=== PATIENT | female | born 1980 | race Caucasian/White ===

== ENCOUNTER 2017-05-13 11:52 | Emergency (ER) | payer BC, SELFPAY ==
[2017-05-13 14:39] VITALS: BP 138/82; PULSE 64; RESP 18; TEMP 36.9; O2SAT 100; BMI 43.0
--- NOTE | 2017-05-13 15:09 | HMH.EDUTC ---
[place] Disposition Clinical Impression: Lip swelling Contact dermatitis Qualifiers: Contact dermatitis type: allergic Contact dermatitis trigger: unspecified trigger Qualified Code(s): L23.9 - Allergic contact dermatitis, unspecified cause Disposition: Home, Self-Care Condition on Discharge: Good Instructions: DI for Contact Dermatitis, DI for General Allergic Reactions Additional Instructions: Discussed possible differentials Sounds concerning for allergic reaction and something related to her bed. pt can't think of anything benadry ok as needed Start steroid. Monitor and BE SURE to follow up for new, worsening or persistent symptoms but also if as you taper, symptoms return or worsen, then try to seek treatment before stopping steroid Cool compress on lip Prescriptions: methylPREDNISolone [Medrol] 4 mg PO DIRECTED #1 tab.ds.pk Referrals: Non User,Provider [Primary Care Provider] - (we have provided you with a list of providers accepting patients. I would encourage you find him a new primary care provider and make an appt PAOLA as it can take weeks to get a new patient appointment. In the meantime, follow up in the clinic or ER for new, worsening or persistent symptoms.) Time of Disposition: 15:31 Medical Decision Making Vital Signs: 05/13/17 14:39 05/13/17 15:32 Temperature 98.4 F 98.1 F Temperature Source Temporal Artery Scan Pulse Rate 71 Pulse Rate [Right Radial] 64 Respiratory Rate 18 20 Blood Pressure 127/80 Blood Pressure [Right Arm] 138/82 Blood Pressure Mean [Right Arm] 100 Blood Pressure Source [Right Arm] Automatic Cuff Blood Pressure Position [Right Arm] Sitting 02 Sat by Pulse Oximetry 100 Oxygen Delivery Method Room Air - Isiah Inquiry Pt receiving controlled substance: No [place] HPI - General Stated complaint: allergic reaction swelling itchy Time Seen by Provider: 05/13/17 15:09 Mode of Arrival: Family Vehicle Source of Information: Patient Limitations: No Limitations Description of Symptoms (Recalled from Triage Doc. by RN): PT C/O LIP SWELLING ONLY AT NIGHT. HEENT Symptoms (Recalled from RN notes): Yes (LIP SWELLING AT NIGHT) Resp Symptoms (Recalled from RN notes): No Skin Symptoms (Recalled from RN notes): No MS Symptoms (Recalled from RN notes): No Functional Status (Recalled from RN notes): NA - History of Present Illness Provider Complaint: c/o waking up yesterday morning with all of her lips swollen and red. took benadryl and improved. Laid down in her bed again for a nap mid day, woke up the same way. Benadryl helped again. Woke up this morning again in her bed, same way. Again benadryl helped. Not red or swollen now. States she has racked my brain and can't think of anything new. No new foods, medications, cosmetics, toiletries, nothing . Denies new sheets, new laundry products. No one else with symptoms. Described as tingly, burning, red, swollen that are a little itchy . Denies hx of allergic rxns. No possible exposure to Herpes. - Related Data Previous Rx's Medication Instructions Recorded methylPREDNISolone [Medrol] 4 mg PO DIRECTED #1 tab.ds.pk 05/13/17 Allergies Allergy/AdvReac Type Severity Reaction Status Date / Time penicillin G Allergy Verified 05/13/17 11:10 - Worker's Comp Is this a Worker's Comp case?: No [facility] History I have reviewed the patient's past medical history: Yes (denies) Medical History: Denies:: Diabetes Mellitus Type 2, Hypertension Other Surgeries: Yes: Other (cholecystectomy) - *Social History Smoking Status: Never smoker Alcohol Intake: never Substance Use Type: denies use - Psychiatric History Expresses thoughts of harming self/others: None Suicide Plan Description: No Plan *Family Hx:: Cancer, Diabetes ROS Obtained: Yes Systems reviewed as appropriate & no additional complaints - Constitutional Constitutional: Denies body ache, Denies chills, Denies fatigue, Denies fever(s), Denies other (recent
--- NOTE | 2017-05-13 15:21 | ED_ITS ---
[facility] [place] Clinical Impression: Lip swelling Contact dermatitis Qualifiers: Contact dermatitis type: allergic Contact dermatitis trigger: unspecified trigger Qualified Code(s): L23.9 - Allergic contact dermatitis, unspecified cause Disposition: Home, Self-Care Condition on Discharge: Good Instructions: DI for Contact Dermatitis, DI for General Allergic Reactions Additional Instructions: Discussed possible differentials Sounds concerning for allergic reaction and something related to her bed. pt can 't think of anything benadry ok as needed Start steroid. Monitor and BE SURE to follow up for new, worsening or persistent symptoms but also if as you taper, symptoms return or worsen, then try to seek treatment before stopping steroid Cool compress on lip Prescriptions: methylPREDNISolone [Medrol] 4 mg PO DIRECTED #1 tab.ds.pk Referrals: Non User,Provider [Primary Care Provider] - (we have provided you with a list of providers accepting patients. I would encourage you find him a new primary care provider and make an appt PAOLA as it can take weeks to get a new patient appointment. In the meantime, follow up in the clinic or ER for new, worsening or persistent symptoms.) Time of Disposition: 15:31 Medical Decision Making Vital Signs: 05/13/17 14:39 05/13/17 15:32 Temperature 98.4 F 98.1 F Temperature Source Temporal Artery Scan Pulse Rate 71 Pulse Rate [Right Radial] 64 Respiratory Rate 18 20 Blood Pressure 127/80 Blood Pressure [Right Arm] 138/82 Blood Pressure Mean [Right Arm] 100 Blood Pressure Source [Right Arm] Automatic Cuff Blood Pressure Position [Right Arm] Sitting 02 Sat by Pulse Oximetry 100 Oxygen Delivery Method Room Air - Isiah Inquiry Pt receiving controlled substance: No [facility] [place] HPI - General Stated complaint: allergic reaction swelling itchy Time Seen by Provider: 05/13/17 15:09 Mode of Arrival: Family Vehicle Source of Information: Patient Limitations: No Limitations Description of Symptoms (Recalled from Triage Doc. by RN): PT C/O LIP SWELLING ONLY AT NIGHT. HEENT Symptoms (Recalled from RN notes): Yes (LIP SWELLING AT NIGHT) Resp Symptoms (Recalled from RN notes): No Skin Symptoms (Recalled from RN notes): No MS Symptoms (Recalled from RN notes): No Functional Status (Recalled from RN notes): NA - History of Present Illness Provider Complaint: c/o waking up yesterday morning with all of her lips swollen and red. took benadryl and improved. Laid down in her bed again for a nap mid day, woke up the same way. Benadryl helped again. Woke up this morning again in her bed, same way. Again benadryl helped. Not red or swollen now. States she has racked my brain and can't think of anything new. No new foods, medications, cosmetics, toiletries, nothing . Denies new sheets, new laundry products. No one else with symptoms. Described as tingly, burning, red, swollen that are a little itchy . Denies hx of allergic rxns. No possible exposure to Herpes. - Related Data Previous Rx's Medication Instructions Recorded methylPREDNISolone [Medrol] 4 mg PO DIRECTED #1 tab.ds.pk 05/13/17 Allergies Allergy/AdvReac Type Severity Reaction Status Date / Time penicillin G Allergy Verified 05/13/17 11:10 - Worker's Comp Is this a Worker's Comp case?: No [facility] History I have reviewed the patient's past medical history: Yes (denies
[2017-05-13 15:32] VITALS: BP 127/80; PULSE 71; RESP 20; TEMP 36.7; O2SAT 100
== END 2017-05-13 15:33 | disposition home or self-care (01) ==
PROVIDERS: Emergency Provider Nurse Practitioner Family
DX: L23.9 Allergic contact dermatitis, unspecified cause (principal); T78.3XXA Angioneurotic edema, initial encounter; Z88.0 Allergy status to penicillin; Z90.49 Acquired absence of other specified parts of digestive tract
CPT/HCPCS: 99201

== ENCOUNTER 2017-05-16 09:19 | Emergency (ER) | payer BC, SELFPAY ==
[2017-05-16 09:26] VITALS: BP 153/71; PULSE 70; RESP 22; TEMP 36.6; O2SAT 95; BMI 42.3
--- NOTE | 2017-05-16 09:45 | HMH.EDUTC ---
[facility] [place] Disposition Clinical Impression: Angioedema of lips Qualifiers: Encounter type: subsequent encounter Qualified Code(s): T78.3XXD - Angioneurotic edema, subsequent encounter Disposition: Home, Self-Care Condition on Discharge: Good Instructions: DI for Angioedema, Epinephrine Injection Additional Instructions: Cool compress on lips Zrytec 10mg by mouth daily as soon as you can get home to get some. Sorry we do not carry it here. Dr. Jefferson wanted you to have specifically zyrtec, no other antihistamine. If not change within 1-2 hours of taking medication, take a second dose of zyrtec 10mg by mouth STOP medrol dose pack. You had 40mg depo-medrol here in clinic. Take this with you to your appt tomorrow in case he doesn't receive your faxed office note Epi-pen for emergency. 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 You decline needing any further education and state you have no questions. Dr. Jefferson or his project control officer should be in touch today with an appt for tomorrow. be sure to answer your phone. 911 for throat swelling or difficulty breathing ER for worsening symptoms that can't wait until you see cop winder tomorrow despite the above plan of care. Prescriptions: EPINEPHrine [Epipen] 0.3 mg IM ONCE PRN #1 [email or web address] PRN Reason: Allergic Reaction Referrals: Ernesto Jefferson [Referring] - (He or his project control officer should be in touch today. Be sure to answer. I gave him the number you and I confirmed. Appt there tomorrow. 911/ER for worsening symptoms as we discussed.) Time of Disposition: 10:42 Medical Decision Making - Medical Records Medical records reviewed: Yes: I reviewed the patient's medical records. MR Comment: prior visit Vital Signs: 05/16/17 09:26 05/16/17 10:42 Temperature 98 F 98.4 F Temperature Source Temporal Artery Scan Pulse Rate 78 Pulse Rate [Left Brachial] 70 Respiratory Rate 22 20 Blood Pressure 133/77 Blood Pressure [Left Arm] 153/71 Blood Pressure Mean [Left Arm] 98 Blood Pressure Source [Left Arm] Automatic Cuff Blood Pressure Position [Left Arm] Sitting 02 Sat by Pulse Oximetry 95 Oxygen Delivery Method Room Air Oxygen Flow Rate (LPM) 99 Orders (Tests/Meds): ED MEDICATIONS Discontinued Medications Generic Name Dose Route Start Last Admin Trade Name Samantha PRN Reason Stop Dose Admin Methylprednisolone Acetate 40 mg 05/16/17 10:05 05/16/17 10:16 Depo-Medrol 40mg/Ml Vial IM 05/16/17 10:06 40 mg ONCE ONE Administration - Physician Consults Physician Consulted: Dr. Ernesto Jefferson, permanent waver Time: 09:50 Reason -: Pt condition Comment/Response: He was not available in clinic today due to weather. Unable to leave home. Discussed HPI, exam/symptoms over the phone. Recommends zyrtec 10mg and if no change in 1-2 hours, take a second zyrtec 10mg. Stop medrol and start either prednisone 40mg PO or give depomedrol injection. Rx epipen. Him or his project control officer will call her today and schedule appt for tomorrow. - Isiah Inquiry Pt receiving controlled substance: No [facility] [place] HPI - General Stated complaint: swollen lips allergic reaction Time Seen by Provider: 05/16/17 09:40 Mode of Arrival: Ambulatory Source of Information: Patient Limitations: No Limitations Description of Symptoms (Recalled from Triage Doc. by RN): C/O a second allergic reaction that has caused her lips and throat to be swollen HEENT Symptoms (Recalled from RN notes): No Resp Symptoms (Recalled from RN notes): No Skin Symptoms (Recalled from RN notes): No MS Symptoms (Recalled from RN notes): No Functional Status (Recalled from RN notes): n/a - History of Present Illness Provider Complaint: c/o lip swelling again. Pt was seen on 05/13. First at clinic where she was dx w/ allergic reaction then here in [facility] later that afternoon. Reason is not clear. Dx again with allergic reaction. Was c/o waking up with red and
--- NOTE | 2017-05-16 09:50 | ED_ITS ---
[facility] Disposition Clinical Impression: Angioedema of lips Qualifiers: Encounter type: subsequent encounter Qualified Code(s): T78.3XXD - Angioneurotic edema, subsequent encounter Disposition: Home, Self-Care Condition on Discharge: Good Instructions: DI for Angioedema, Epinephrine Injection Additional Instructions: Cool compress on lips Zrytec 10mg by mouth daily as soon as you can get home to get some. Sorry we do not carry it here. Dr. Jefferson wanted you to have specifically zyrtec, no other antihistamine. If not change within 1-2 hours of taking medication, take a second dose of zyrtec 10mg by mouth STOP medrol dose pack. You had 40mg depo-medrol here in clinic. Take this with you to your appt tomorrow in case he doesn't receive your faxed office note Epi-pen for emergency. 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 You decline needing any further education and state you have no questions. Dr. Jefferson or his chief technical officer should be in touch today with an appt for tomorrow. be sure to answer your phone. 911 for throat swelling or difficulty breathing ER for worsening symptoms that can't wait until you see fire prevention forester tomorrow despite the above plan of care. Prescriptions: EPINEPHrine [Epipen] 0.3 mg IM ONCE PRN #1 auto.injct PRN Reason: Allergic Reaction Referrals: Ernesto Jefferson [Referring] - (He or his chief technical officer should be in touch today. Be sure to answer. I gave him the number you and I confirmed. Appt there tomorrow. 911/ER for worsening symptoms as we discussed.) Time of Disposition: 10:42 Medical Decision Making - Medical Records Medical records reviewed: Yes: I reviewed the patient's medical records. MR Comment: prior visit Vital Signs: 05/16/17 09:26 05/16/17 10:42 Temperature 98 F 98.4 F Temperature Source Temporal Artery Scan Pulse Rate 78 Pulse Rate [Left Brachial] 70 Respiratory Rate 22 20 Blood Pressure 133/77 Blood Pressure [Left Arm] 153/71 Blood Pressure Mean [Left Arm] 98 Blood Pressure Source [Left Arm] Automatic Cuff Blood Pressure Position [Left Arm] Sitting 02 Sat by Pulse Oximetry 95 Oxygen Delivery Method Room Air Oxygen Flow Rate (LPM) 99 Orders (Tests/Meds): ED MEDICATIONS Discontinued Medications Generic Name Dose Route Start Last Admin Trade Name Samantha PRN Reason Stop Dose Admin Methylprednisolone Acetate 40 mg 05/16/17 10:05 05/16/17 10:16 Depo-Medrol 40mg/Ml Vial IM 05/16/17 10:06 40 mg ONCE ONE Administration - Physician Consults Physician Consulted: Dr. Ernesto Jefferson, export documents clerk Time: 09:50 Reason -: Pt condition Comment/Response: He was not available in clinic today due to weather. Unable to leave home. Discussed HPI, exam/symptoms over the phone. Recommends zyrtec 10mg and if no change in 1-2 hours, take a second zyrtec 10mg. Stop medrol and start either prednisone 40mg PO or give depomedrol injection. Rx epipen. Him or his chief technical officer will call her today and schedule appt for tomorrow. - Isiah Inquiry Pt receiving controlled substance: No [facility] HPI - General Stated complaint: swollen lips allergic reaction Time Seen by Provider: 05/16/17 09:40 Mode of Arrival: Ambulatory Source of Information: Patient Limitations: No Limitations Description of Symptoms (Recalled from Triage Doc. by RN): C/O a second maribell
[2017-05-16 10:42] VITALS: BP 133/77; PULSE 78; RESP 20; TEMP 36.9
== END 2017-05-16 10:43 | disposition home or self-care (01) ==
PROVIDERS: Emergency Provider Nurse Practitioner Family
DX: T78.3XXA Angioneurotic edema, initial encounter (principal); Z88.0 Allergy status to penicillin
CPT/HCPCS: 96372; 99201; J1030

== ENCOUNTER → 2021-01-25 10:16 | Outpatient (CLI) | payer BC, SELFPAY ==
--- NOTE | 2021-01-25 10:18 | MM_ITS ---
PROCEDURE: MM DIG SCREENING MAMM BI W/CAD Digital Breast Tomosynthesis Included CLINICAL INDICATION: SCREENING There is a history of breast cancer in the patient's mother diagnosed in her 40s. COMPARISON: DIG MAMMO BILAT SCREENING from 11/05/2013, outside study TECHNIQUE: Standard CC and MLO images and 3D Tomosynthesis was obtained. R2 CAD reviewed. FINDINGS: Mild to moderate fibroglandular densities are seen throughout both breasts. Stable asymmetric glandular elements are seen upper outer quadrants of both breasts. There is a new nodular density just superior and lateral to the nipple left breast. This was not seen on the previous mammogram. Recommend base spot compression views and ultrasound for additional evaluation. There are no suspicious microcalcifications. IMPRESSION: Moderate breast density with possible new nodular lesion left breast BI-RAD Category: 0 Need Additional Imaging Evaluation FOLLOW-UP: IMM Immediate Follow-up Recommended (A letter has been sent to the patient regarding results of the study.) Dictated by: Dr. Tung Oseguera MD 02/01/2021 12:52 Dr. Tung Oseguera MD in [place] 02/01/2021 12:52
== END ==
PROVIDERS: PCP Family Medicine; Visit Provider Family Medicine
DX: Z12.31 Encounter for screening mammogram for malignant neoplasm of breast (principal)
CPT/HCPCS: 77063; 77067

== ENCOUNTER → 2021-02-23 14:37 | Outpatient (CLI) | payer BC, SELFPAY ==
--- NOTE | 2021-02-23 15:12 | US_ITS ---
PROCEDURE: MM DIG MAMM DX UNILAT LT CAD Digital Breast Tomosynthesis Included Left breast ultrasound complete CLINICAL INDICATION: ABN MAMM Left breast nodule COMPARISON: MG DIG MAMMO BILAT SCREENING from 11/05/2013 MG MM DIG SCREENING MAMM BI W/CAD from 01/25/2021 US US BREAST LT COMPLETE from 02/23/2021 TECHNIQUE: Diagnostic left mammogram Left breast ultrasound FINDINGS: There is a persistent 9 x 8 x 4 mm mass in the upper outer left breast anteriorly which does not compress out on the spot compression views. Margins are fairly well-circumscribed. No abnormal calcifications or architectural distortion. Left breast ultrasound: At 1 o'clock near the nipple there is a superficial nodule measuring 9 by 9 x 4 mm. This nodule is hypoechoic but there are low level internal echoes. No acoustical shadowing. The margins are well-circumscribed. The nodule is wider than tall with some heterogeneous echogenicity. At 5 o'clock there is a 5 mm cyst. Mild ductal dilatation noted at 8 o'clock near the nipple. 2 cm node in the left axilla. IMPRESSION: New left breast nodule persist on spot compression views and does not represent a simple cyst by ultrasound. The nodule is new compared to 11/05/2013. Mildly suspicious. Ultrasound-guided core biopsy recommended. BI-RAD Category: 4 Suspicious Abnormality-Biopsy Considered FOLLOW-UP: BIO Biopsy Recommended (A letter has been sent to the patient regarding results of the study.) Dictated by: Rudi Navarrete MD 03/04/2021 10:23 Rudi Navarrete MD in [place] 03/04/2021 10:23
== END ==
PROVIDERS: PCP Family Medicine; Visit Provider Physician Assistant
DX: R92.8 Other abnormal and inconclusive findings on diagnostic imaging of breast (principal)
CPT/HCPCS: 76641; 77061; 77065; G0279

== ENCOUNTER → 2021-03-14 09:37 | Outpatient (CLI) | payer BC, SELFPAY ==
--- NOTE | 2021-03-14 09:42 | US_ITS ---
PROCEDURE: US FNA BREAST CLINICAL INDICATION: ABM MAMM OF LT BREAST COMPARISON: US US BREAST LT COMPLETE from 02/23/2021 FINDINGS: Following obtained informed consent and time-out procedure under aseptic conditions and local anesthesia with 1 percent buffered lidocaine, fine needle aspiration was performed the left breast nodule at 1 o'clock near the nipple. 1 pass was made with a 21 gauge needle and 2 passes with an 18 gauge needle. Patient tolerated the procedure well without evidence of immediate complication. Cytology: Negative for malignancy. Benign ductal groups within the sanguinous background. Mammotome biopsy was not obtained due to the superficial location. IMPRESSION: Uneventful ultrasound-guided FNA of left breast nodule at 1 o'clock near the nipple showing benign findings. Recommend six-month mammographic and sonographic follow-up. Dictated by: Rudi Navarrete MD 03/18/2021 17:27 Rudi Navarrete MD in [place] 03/18/2021 17:27
== END ==
PROVIDERS: PCP Family Medicine; Visit Provider Family Medicine
DX: R92.8 Other abnormal and inconclusive findings on diagnostic imaging of breast (principal)
CPT/HCPCS: 10005

== ENCOUNTER → 2022-10-02 15:15 | Outpatient (CLI) | payer BC, SELFPAY ==
--- NOTE | 2022-10-02 15:22 | MM_ITS ---
PROCEDURE INFORMATION: Exam: MG Bilateral Screening 3D Mammography Exam date and time: 10/02/2022 3:21 PM Age: 42 years old Clinical indication: Screening. Her mother had breast cancer. TECHNIQUE: Imaging protocol: Bilateral Screening tomosynthesis and 2D mammography including computer-aided detection (CAD) when performed. COMPARISON: 1. MG MM DIG MAMM DX UNILAT LT CAD 02/23/2021 3:08 PM 2. MG MM DIG SCREENING MAMM BI W/CAD 01/25/2021 10:19 AM 3. MG DIG MAMMO BILAT SCREENING 11/05/2013 1:42 PM 4. US FNA BREAST 03/14/2021 10:10 AM FINDINGS: MAMMOGRAPHY: Breast composition: There are scattered areas of fibroglandular density. Mass: None. Architectural distortion: None. Calcifications: Questionable loose grouping of calcifications in the left upper outer quadrant posterior 3rd. Asymmetric density: No developing asymmetry. Skin thickening: None. Axillary adenopathy: None. IMPRESSION: Patient will be recalled for left diagnostic magnification in CC and true lateral for further evaluation of left breast calcifications. Also, note after benign fine-needle aspiration of left breast nodule at 1 o'clock, a six-month follow-up mammogram and sonogram had been recommended on 03/18/2021. If the sonogram has not been performed, consider adding left sonography. ASSESSMENT: BI-RADS Category 0: Incomplete- Need Additional Imaging Evaluation and/or Prior Mammograms for Comparison
== END ==
PROVIDERS: PCP Family Medicine; Visit Provider Physician Assistant
DX: Z12.31 Encounter for screening mammogram for malignant neoplasm of breast (principal)
CPT/HCPCS: 77063; 77067

== ENCOUNTER → 2022-10-26 14:50 | Outpatient (CLI) | payer BC, SELFPAY ==
--- NOTE | 2022-10-26 14:54 | MM_ITS ---
PROCEDURE INFORMATION: Exam: US Left Breast, Complete MG Left Diagnostic Breast Tomosynthesis Exam date and time: 10/26/2022 2:49 PM Age: 42 years old Clinical indication: Patient recalled on the basis of a screening mammogram for further evaluation; Left breast; calcifications. TECHNIQUE: Imaging protocol: Complete ultrasound of all four quadrants of the left breast and the retroareolar regions, including ultrasound of the axilla when performed. Left Diagnostic tomosynthesis and 2D mammography including computer-aided detection (CAD) when performed. Unilateral or bilateral exam. COMPARISON: 1. MG MM DIG SCREENING MAMM BI W/CAD 10/02/2022 3:21 PM 2. MG MM DIG MAMM DX UNILAT LT CAD 02/23/2021 3:08 PM FINDINGS: MAMMOGRAPHY: Digital diagnostic magnification views of the posterior left upper outer quadrant demonstrates several punctate loosely grouped calcifications of uniform size, shape, and density without tight clustering or significant pleomorphism. The calcifications have a benign radiographic appearance. ULTRASOUND: Sonographic images of the left breast including the retroareolar region, all 4 quadrants and the axilla do not demonstrate any suspicious solid or cystic masses. Previously biopsied stable mass in the superficial aspect of the left 1 o'clock axis 2 cm from the nipple measuring 1.1 cm in greatest dimension. Few subcentimeter cysts are noted in the left lower quadrants. No architectural distortion or acoustical shadowing. No skin thickening or axillary adenopathy. IMPRESSION: No mammographic or sonographic evidence of malignancy. Benign left breast calcifications.Annual bilateral mammographic screening is recommended unless otherwise clinically indicated. ASSESSMENT: BI-RADS Category 2: Benign
== END ==
LOC: RAD 14:51
PROVIDERS: PCP Family Medicine; Visit Provider Physician Assistant
DX: R92.8 Other abnormal and inconclusive findings on diagnostic imaging of breast (principal)
CPT/HCPCS: 76641; 77061; 77065; G0279

== ENCOUNTER 2025-01-30 13:51 | Outpatient (CLI) | payer BC, SELFPAY ==
--- OUTSIDE RECORDS SUMMARY | 2023-11-14 11:45 | XMS_ITS ---
Author Organization [facility] Address [address] [facility] [address] [place] [id number] Care Team Providers Care Plant Director Name Role Phone Trevorton Bronson Primary Care Provider [phone] Sena Curry Unavailable [phone] Allergies Allergen (clinical drug ingredient) Drug/Non Drug Allergy documented on EMR Reaction Allergy Type Onset Date Status Penicillin Unknown Drug Allergy Active Results Component Value Reference Range Notes Glycohemoglobin A1c (in hous e) Reviewed date:11/16/2023 09:35:12 AM Interpretation: Performing Lab: Notes/Report: glycohemoglobin 5.0% 5 - 6.5 % REASON FOR VISIT f/u meds Medications Medication SIG (Take, Route, Frequency, Duration) Notes Start Date End Date Status Zepbound 7.5 MG/0.5ML 0.5 mL Subcutaneou s once a week; Duration: 28 days Not-Taki ng Wegovy 0.25 MG/0.5ML 0.25 mg Subcutaneou s once a week 09/22/2022 Not-Taking Saxenda 18 MG/3ML INJECT 0.6MG SUBCUTANEOUSLY ONCE A WEEK AND TITRATE UP 0.6MG WEEKLY UNTIL YOU REACH 3MG DAILY; Duration: 30 Not-Taking Problems Problem Type SNOMED Code ICD Code Onset Dates Problem Status W/U Status Risk Notes Problem Obese class I (finding) ([id number]) Obesity (BMI 30.0-34.9) (E66.9) Active confirmed Vital Signs Blood pressure systolic 126 mm Hg 11/14/19 24 Blood pressure diastolic 82 mm Hg 024 Heart Rate 54 /min 11/14/2023 Height 63.50 in 11/14/2023 Weight 195.4 lbs 11/14/2023 BMI 34.07 kg/m2 11/14/2023 Encounters Encounter Location Date Provider Diagnosis Tani [address] [facility] [address] [place] [id number] 11/14/2023 Sena Solanoandrew Obesity (BMI 30.0-34 .9) E66.9 Assessments Encounter Date Diagnosis (ICD Code) Assessment Notes Treatment Notes Treatment Clinical Notes Section Notes 11/14/2023 Obesity (BMI 30.0-34.9) (ICD-10 - E66.9) Patient was provided a copy of her lab work. She will submit to her weight management program and will let me know when I can send a rx for the 7.5mg Zepbound. Plan Of Treatment Treatment Notes Assessment Notes Obesity (BMI 30.0-34.9) Patient was prov ided a copy of her lab work. She will submit to her weight management program and will let me know when I can send a rx for the 7.5mg Zepbound. Next Appt Details Follow Up: via phone to repo rt test results, Reason: Progress Notes * TOREY MELVINADOB:1980 (44 yo F)Acc No.[id number]:11/14/2023 Progress Notes Patient: NICHOLAS PARKER Provider: LUCY Zuniga :1980 A ge:43 Y S ex:Female Date:11/14/2023 Address:[place], [id number] Pcp:Bronson Lockhart Subjective: * Chief Complaints: * 1 . F/u meds. * HPI: C onstitutional: The patient is here for a follow up on weight management. Zepbound 7.5mg was not approved because her [facility] weight program required labs to continue the medication. She has already had the required labs other than an A1C. * ROS: D ERMATOLOGY: no R siva. n o H jayden. G ASTROENTEROLOGY: no N ausea. n o V omiting. n o D iarrhea.? U ROLOGY: no D ifficulty urinating. n o B lood in urine. * Medical History: M edical History Verified. * Surgical History: c holecystectomy , Gastric Sleeve 04/06/19. * Hospitalization/Major Diagno stic Procedure: C linda x2 , [facility] ER-lips were swollen 06/2017, [place] 04/06-. * Family History: F ather: alive. M other: alive, diagnosed with Cancer in 2009. S iblings: alive, diagnosed with Diabetes. C geten: alive. 1 brother(s) , 3 sister(s) - healthy. 1 son(s) , 1 daughter(s) - healthy. . Mother - Breast Cancer. * Social History: C URRENT TOBACCO USE S moking Status: P atient does NOT smoke, F ormer Smoker:?No. C affeine: yes, frequency:. * Medications: N ot-Taking Wegovy 0.25 MG/0.5ML Solution Auto-injector 0.25 mg Subcutaneous once a week , Not-Taking Saxenda 18 MG/3ML Solution Pen-injector INJECT 0.6MG SUBCUTANEOUSLY ONCE A WEEK AND TITRATE UP 0.6MG WEEKLY UNTIL YOU REACH 3MG DAILY , Not-Taking Zepbound 7.5 MG/0.5ML Solution Auto-injector 0.5 mL Subcutaneous once a week , Medication List reviewed and reconciled with the patient * Allergies: P enicillin. Objective: * Vitals: W t:195.4, Temp:98.6, BP:126/82, HR:54, Nurse:KEHINDE, Ht: 63.50, BMI:34.07. * Examination: G eneral Examination: General Appearance: N AD. C hest: n ormal shape and expansion. H eart: R SR. L ungs: c lear to auscultation. A bdomen: bowel sounds present, soft and nontender, no organomegaly or masses, no guarding or rigidity. ? Assessment: * Assessment: 1. O besity (BMI 30.0-34.9) - E66.9 (Primary) Plan: * Treatment: Value Reference Range g lycohemoglobin 5.0% 5 - 6.5 % * Asmita Manzanares 11/14/2023 4:33 :17 PM > , Provider reviewed results while patient in office. Notes: Patient was provided a copy of her lab work. She will submit to her weight management program and will let me know when I can send a rx for the 7.5mg Zepbound.?? * Procedure Codes: 3 6416 CAPILLARY BLOOD DRAW, 35521 GLYCATED HEMOGLOBIN TEST, Modifiers: QW * Follow Up: v ia phone to report test results * Images: Billing Information: * Visit Code: 35266 Office Visit, Est Pt., Level 3. * Procedure Codes: 17955 CAPILLARY BLOOD DRAW. 30179 GLYCATED HEMOGLOBIN TEST. Modifiers: QW * Electronic signature of LUCY Romano on 01/30/2025 at 01:53 PM EDT Sign off status: Pending * Provider: LUCY Zuniga Date: 0 11/14/2023 Generated for Filemon maciel/Bashir/eTransmitting on: 1 01:53 PM EDT History and Physical Notes * Examination Category Sub-Category Detail Notes Category Not es General Examination Heart: RSR Lungs: clear to auscultatio n Abdomen: bowel sounds present , soft and nontender, no organomegaly or masses, no guarding or rigidity General Appearance: NAD Chest: normal shape and exp ansion
--- OUTSIDE RECORDS SUMMARY | 2024-09-25 11:30 | XMS_ITS ---
Author Organization Tani Address [address] [facility] [address] [place] [id number] Care Team Providers Care Supervisor Film Processing Name Role Phone Claus Lockhartian Primary Care Provider Sena Curry [phone] Allergies Allergen (clinical drug ingredient) Drug/Non Drug Allergy documented on EMR Reaction Allergy Type Onset Date Status Penicillin Unknown Drug Allergy Active REASON FOR VISIT ckup & refills Medications Medication SIG (Take, Route, Fr equency, Duration) Notes Start Date End Date Status Zepbound 12.5 MG/0.5ML INJECT 1 SYRINGE SUBCUTANEOUSLY ONCE A WEEK; Duration: 28 Active Wegovy 0.25 MG/0.5ML 0.25 mg Subcutaneou s once a week 09/25/2024 Active Vital Signs Blood pressure systolic 132 mm Hg 09/26/19 25 Blood pressure diastolic 68 mm Hg 025 Heart Rate 58 /min 09/25/2024 Height 63.50 in 09/25/2024 Weight 150.2 lbs 09/25/2024 BMI 26.19 kg/m2 09/25/2024 Encounters Encounter Location Date Provider Diagnosis Tani [address] [facility] [address] [place] [id number] 09/25/2024 Sena Curry Encounter for weight management Z76.89 and BMI 26.0-26.9,adult Z68.26 Assessments Encounter Date Diagnosis (ICD Code) Assessment Notes Treatment Notes Treatment Clinical Notes Section Notes 09/25/2024 Encounter for weight management (ICD-10 - Z76.89) Patient's insurance will no longer cover the zepbound. She has to switch to wegovy. 09/25/2024 BMI 26.0-26.9,adult (ICD-10 - Z68.26) Plan Of Treatment Medication Medication Name Sig Start Date Stop Date Notes Wegovy 0.25 MG/0.5ML 0.25 mg Subcutaneous once a week 09/07 Treatment Notes Assessment Notes Encounter for weight management Patient' s insurance will no longer cover the zepbound. She has to switch to wegovy. Next Appt Details Follow Up: 3 Months fasting, Reason: Progress Notes * KATE MELVINB:1980 (44 yo F)Acc No.[id number]:09/25/2024 Progress Notes Patient: NICHOLAS PARKER Provider: LUCY Zuniga :1980 A ge:44 Y S ex:Female Date:09/25/2024 Address:[address] [place] [address] [facility] [id number] Pcp:Bronson Lockhart Subjective: * Chief Complaints: * 1 . Ckup & refills. * HPI: H PI: Patient is here today for P t here for refills and just for an check up. Pt states she's not complaing of anything at this time. Pt states that she has been off of Zepbound for about 2 months but would like to restart it. * ROS: D ERMATOLOGY: no R siva. n o H jayden. G ASTROENTEROLOGY: no N ausea. n o V omiting. U ROLOGY: no D ifficulty urinating. n o B lood in urine. * Medical History: M edical History Verified. * Surgical History: C holecystectomy , Gastric Sleeve 04/06/2019. * Hospitalization/Major Diagno stic Procedure: Kaye mckeon x2 , [facility] ER-lips were swollen 06/2017, [place] 04/06-. * Family History: F ather: alive. M other: alive, diagnosed with Cancer in 2009. S iblings: alive, diagnosed with Diabetes. Kaye haley: alive. 1 brother(s) , 3 sister(s) - healthy. 1 son(s) , 1 daughter(s) - healthy. . Mother - Breast Cancer. * Social History: C URRENT TOBACCO USE: No . C affeine: yes. * Medications: T aking Zepbound 12.5 MG/0.5ML Solution Auto-injector INJECT 1 SYRINGE SUBCUTANEOUSLY ONCE A WEEK , Discontinued Wegovy 0.25 MG/0.5ML Solution Auto-injector 0.25 mg Subcutaneous once a week , Discontinued Saxenda 18 MG/3ML Solution Pen-injector INJECT 0.6MG SUBCUTANEOUSLY ONCE A WEEK AND TITRATE UP 0.6MG WEEKLY UNTIL YOU REACH 3MG DAILY , Medication List reviewed and reconciled with the patient * Allergies: P enicillin. Objective: * Vitals: W t: 150.2, Temp: 98.1, BP: 132/68, HR: 58, Nurse: praveen, Ht: 63.50, BMI:26.19. * Examination: G eneral Examination: General Appearance: N AD. H EENT: u nremarkable.?Oral cavity: n o lesions, mucosa moist and WNL, no erythema. N odilon: s upple, no lymphadenopathy. C hest: n ormal shape and expansion. H eart: R SR. L ungs: c lear to auscultation. A bdomen: b owel sounds present, soft, nontender. N eurologic Exam:?Intact, gait normal. S kin: n ormal, no rash. P eripheral pulses: n ormal (2+) bilaterally. E xtremities: n o leg edema. Assessment: * Assessment: 1. E ncounter for weight management - Z76.89 (Primary) 2 . B ND 26.0-26.9,adult - Z68.26 Plan: * Treatment: * Procedure Codes: 1 036F TOBACCO NON-USER, G8783 BP SCR PRFRM RCMDD DEFIND SCR INTVL, G8752 MOST RECENT SYSTOLIC BP < 140MM HG, G8754 MOST RECENT DIASTOLIC BP < 90MM HG, G8420 BMI<30 AND >=22 CALC & DOCU * Follow Up: 3 Months fasting * Images: Billing Information: * Visit Code: 95455 Office Visit, Est Pt., Level 3. * Procedure Codes: 1036F TOBACCO NON-USER. G8783 BP SCR PRFRM RCMDD DEFIND SCR INTVL. G8752 MOST RECENT SYSTOLIC BP < 140MM HG. G8754 MOST RECENT DIASTOLIC BP < 90MM HG. G8420 BMI<30 AND >=22 CALC & DOCU. * Electronic signature of LUCY Romano on 01/30/2025 at 01:54 PM EDT Sign off status: Pending * Provider: LUCY Zuniga Date: 0 09/25/2024 Generated for Filemon maciel/Bashir/eTransmitting on: 1 01:54 PM EDT History and Physical Notes * HPI (History of Present Illness) Category Sub-Category Detail Notes Category Not es HPI Patient is here today for Pt her e for refills and just for an check up. Pt states she's not complaing of anything at this time. Pt states that she has been off of Zepbound for about 2 months but would like to restart it Examination Category Sub-Category Detail Notes Category Not es General Examination HEENT: unremarkable Heart: RSR Lungs: clear to auscultatio n Abdomen: bowel sounds present , soft, nontender Extremities: no leg edema General Appearance: NAD Skin: normal, no rash Neurologic Exam: Intact, gait normal Neck: supple, no lymphaden opathy Oral cavity: no lesions, mucosa m oist and WNL, no erythema Peripheral pulses: normal (2+) bilatera lly Chest: normal shape and exp ansion
--- OUTSIDE RECORDS SUMMARY | 2025-01-01 10:30 | XMS_ITS ---
Author Organization Tani Address [address] [facility] [address] [place] [id number] Care Team Providers Care Brewery Technician Name Role Phone Bronson Lockhart Primary Care Provider Sena Curry Unavailable [phone] Allergies Allergen (clinical drug ingredient) Drug/Non Drug Allergy documented on EMR Reaction Allergy Type Onset Date Status Penicillin Unknown Drug Allergy Active REASON FOR VISIT 3 months fasting, due for Mammogram (referral sent 10/07/24) not scheduled Medications Medication SIG (Take, Route, Frequency, Duration) Notes Start Date End Date Status Zepbound 12.5 MG/0.5ML INJECT 1 SYRINGE SUBCUTANEOUSLY ONCE A WEEK; Duration: 28 Not-Taking Wegovy 0.25 MG/0.5ML 0.25 mg Subcutaneou s once a week 09/25/2024 Not-Taking Vital Signs Blood pressure systolic 128 mm Hg 01/02/20 25 Blood pressure diastolic 68 mm Hg 025 Heart Rate 62 /min 01/01/2025 Height 63.50 in 01/01/2025 Weight 165.8 lbs 01/01/2025 BMI 28.91 kg/m2 01/01/2025 Encounters Encounter Location Date Provider Diagnosis [facility] [address] [facility] [address] [facility] [address] [place] [id number] 01/01/2025 Sena Curry Encounter for weight management Z76.89 and Screening, lipid Z13.220 Assessments Encounter Date Diagnosis (ICD Code) Assessment Notes Treatment Notes Treatment Clinical Notes Section Notes 01/01/2025 Encounter for weight management (ICD-10 - Z76.89) 01/01/2025 Screening, lipid (ICD-10 - Z13.220) Plan Of Treatment Pending Test Test Name Order Date H-TSH 01/01/2025 H-CBC 01/01/2025 H-Lipid Panel 01/01/2025 H-CMP 01/01/2025 H-Glycohemoglobin A1C 01/01/2025 Next Appt Details Follow Up: via phone to repo rt test results, Reason: Progress Notes * KATE MELVINB:1980 (44 yo F)Acc No.[id number]:01/01/2025 Progress Notes Patient: NICHOLAS PARKER Provider: LUCY Zuniga :1980 A ge:44 Y S ex:Female Date:01/01/2025 Address:[facility] [place], [id number] Pcp:Bronson Lockhart Subjective: * Chief Complaints: * 1 . 3 months fasting. 2. due for Mammogram (referral sent 10/07/24) not scheduled. * HPI: C onstitutional: 44 year old female presents with c/o weight loss P t is here today for a 3 month check up. She could not afford the [employer]se [employer].. * ROS: D ERMATOLOGY: no R siva. n o H jayden. G ASTROENTEROLOGY: no N ausea. n o V omiting. U ROLOGY: no D ifficulty urinating. n o B lood in urine. * Medical History: M edical History Verified. * Surgical History: C holecystectomy , Gastric Sleeve 04/06/2019. * Hospitalization/Major Diagno stic Procedure: C hild x2 , [facility] ER-lips were swollen 06/2017, [place] 04/06-. * Family History: F ather: alive. M other: alive, diagnosed with Cancer in 2009. S iblings: alive, diagnosed with Diabetes. C hildren: alive. 1 brother(s) , 3 sister(s) - healthy. 1 son(s) , 1 daughter(s) - healthy. . Mother - Breast Cancer. * Social History: C URRENT TOBACCO USE: No . C affeine: yes. * Medications: N ot-Taking Zepbound 12.5 MG/0.5ML Solution Auto-injector INJECT 1 SYRINGE SUBCUTANEOUSLY ONCE A WEEK , Not-Taking Wegovy 0.25 MG/0.5ML Solution Auto- injector 0.25 mg Subcutaneous once a week , Medication List reviewed and reconciled with the patient * Allergies: P enicillin. Objective: * Vitals: W t: 165.8, Temp: 98.2, BP: 128/68, HR: 62, Nurse: SF, Ht: 63.50, BMI:28.91. * Examination: G eneral Examination: General Appearance: N AD. H EENT: u nremarkable.?Oral cavity: n o lesions, mucosa moist and WNL, no erythema. N odilon: s upple, no lymphadenopathy. C hest: n ormal shape and expansion. H eart: R SR. L ungs: c lear to auscultation. A bdomen: b owel sounds present, soft and nontender, no organomegaly or masses, no guarding or rigidity. N eurologic Exam: I ntact, gait normal. S kin: n ormal, no rash. P eripheral pulses: n ormal (2+) bilaterally. E xtremities: n o leg edema. Assessment: * Assessment: 1. E ncounter for weight management - Z76.89 (Primary) 2 . S creening, lipid - Z13.220 Plan: * Treatment: 2. S creening, lipid L AB: H-Lipid Panel * Procedure Codes: 1 036F TOBACCO NON-USER, 3074F SYST BP LT 130 MM HG, 3078F DIAST BP < 80 MM HG * Follow Up: v ia phone to report test results * Images: Billing Information: * Visit Code: 79669 Office Visit, Est Pt., Level 4. * Procedure Codes: 1036F TOBACCO NON-USER. 3074F SYST BP LT 130 MM HG. 3078F DIAST BP < 80 MM HG. * Electronic signature of LUCY Romano on 01/30/2025 at 01:53 PM EDT Sign off status: Pending * Provider: LUCY Zuniga Date: 0 01/01/2025 Generated for Filemon maciel/Bashir/eTransmitting on: 1 01:53 PM EDT History and Physical Notes * HPI (History of Present Illness) Category Sub-Category Detail Notes Category Not es Constitutional weight loss Pt is here today for a 3 month check up. She could not afford the wegovy. Examination Category Sub-Category Detail Notes Category Not es General Examination HEENT: unremarkable Heart: RSR Lungs: clear to auscultatio n Abdomen: bowel sounds present , soft and nontender, no organomegaly or masses, no guarding or rigidity Extremities: no leg edema General Appearance: NAD Skin: normal, no rash Neurologic Exam: Intact, gait normal Neck: supple, no lymphaden opathy Oral cavity: no lesions, mucosa m oist and WNL, no erythema Peripheral pulses: normal (2+) bilatera lly Chest: normal shape and exp ansion
--- NOTE | 2025-01-30 13:53 | MM_ITS ---
PROCEDURE INFORMATION: Exam: MG Bilateral Screening 3D Mammography Exam date and time: 01/30/2025 2:04 PM Age: 44 years old Clinical indication: Screening examination TECHNIQUE: Imaging protocol: Bilateral Screening tomosynthesis and 2D mammography including computer-aided detection (CAD) when performed. COMPARISON: 1. MG MM DIG MAMM DX UNILAT LT CAD 10/26/2022 2:49 PM 2. MG MM DIG SCREENING MAMM BI W/CAD 10/02/2022 3:21 PM FINDINGS: MAMMOGRAPHY: Breast composition: The breasts are heterogeneously dense, which may obscure small masses. Mass: None. Architectural distortion: None. Calcifications: No suspicious calcifications. Asymmetric density: None. Skin thickening: None. Axillary adenopathy: None. IMPRESSION: No mammographic evidence of malignancy. Annual screening is recommended unless otherwise clinically indicated. ASSESSMENT: BI-RADS Category 1: Negative.
--- OUTSIDE RECORDS SUMMARY | 2025-01-30 13:53 | XMS_ITS | Clinical Summary ---
Author Organization [employer] ([place], [place], [place], [place]) Address [address] [place] [address] Care Team Providers Care Grocery Store Bagger Name Role Phone Unavailable Primary Care Provider Unavailabl e Social History Tobacco Use Types Packs/Day Years Used Date Smoking Tobacco: Never Assessed Comments Unknown Sex and Gender Information Value Date Recorded Sex Assigned at Female 10/04/2021 8:37 PM CDT Legal Sex Female 8:37 PM CDT Gender Identity Female 10/04/2021 8:37 PM CDT Sexual Orientation Not on file Plan of Treatment Not on file
--- OUTSIDE RECORDS SUMMARY | 2025-01-30 13:53 | XMS_ITS | Referral Summary ---
Author Organization [employer] ([place], [place], [place], [place]) Address [address] [place] [address] Care Team Providers Care Cloth Cutting Inspector Name Role Phone Unavailable Primary Care Provider [...]
--- OUTSIDE RECORDS SUMMARY | 2025-01-30 13:53 | XMS_ITS | Encounter Summary ---
Author Organization [employer] ([place], [place], [place], [place]) Address [address] [place] [address] Care Team Providers Care Kit Planner Name Role Phone Unavailable Primary Care Provider Unavailabl e Encounter Details Date Type Department Care Team (Late st Contact Info) Description 04/04/2019 Transcribed Document [facility] [address] [place] [address] ProviderNancy MD [address] [place] [address] Social History Tobacco Use Types Packs/Day Years Used Date Smoking Tobacco: Never Assessed Comments Unknown Sex and Gender Information Value Date Recorded Sex Assigned at Female 10/04/2021 8:37 PM CDT Legal Sex Female 8:37 PM CDT Gender Identity Female 10/04/2021 8:37 PM CDT Sexual Orientation Not on file documented as of this encounter Miscellaneous Notes * Cerner Conversion Note - Historical ProviderMD - 04/04/2019 9:53 AM STRUCTURAL ENGINEERING PROJECT MANAGER PAT Adult Entered On: 04/04/2019 9:57 EST Performed On: 04/04/2019 9:53 EST by Katharina Gresham RN Height and Weight, Clinical Dosing Height Source : Stated Height Entry Format : [place] Height, Feet : 5 ft(Converted to: 152 cm, 60 Inch) Height, Inches : 3.75 Inch(Converted to: 0 ft 4 Inch, 9.52 cm) Clinical Height : 161.93 cm Weight Source : Standing scale Weight Entry Format : [place] Clinical Dosing Weight : 114.09 kg Weight, Pounds : 251 lb Body Surface Area (BSA) : 2.15 m2 Body Mass Index : 43.5 kg/m2 (>HHI) [place] Body Weight : 54 kg Katharina Gresham RN - 04/04/2019 9:53 EST Health Histories Smoking Status : Never (less than 100 in lifetime; none in last 30 days) Smokeless Tobacco Status : Never Katharina Gresham RN - 04/04/2019 9:53 EST Social History (As Of: 04/04/2019 09:57:19 EST) Tobacco: Never (less than 100 in lifetime) Smoking Status. Never Smokeless Tobacco Status. (Last Updated: 02/28/2019 11:53:11 EST by TOREY SANCHEZ RN) Alcohol: Alcohol Use History No. Use in Last 12 Months: No. (Last Updated: 02/28/2019 11:53:19 EST by TOREY SANCHEZ RN) Substance Abuse: Drug Use Hx: No. Use in Last 12 Months: No. (Last Updated: 02/28/2019 11:53:26 EST by TOREY SANCHEZ RN) Nutrition/Health: Caffeine intake amount: 2. (Last Updated: 02/28/2019 11:53:53 EST by TOREY SANCHEZ RN) Infectious Disease History Infectious Disease History : Chicken pox/Shingles, Influenza, Measles Isolation Needed : Standard Fever/Chills Last 48 Hours : No Travel To Regions with Travel Advisories : No Travel Outside [place] Within Last 30 Days : No Contact With Traveler to Advisory Region : No Tuberculosis Symptoms : None Katharina Gresham RN - 04/04/2019 9:53 EST Anesthesia/Transfusion History Family History of Anesthesia Reaction : No prior transfusion(s) Transfusion History : Prior anesthesia without reaction Family History of Anesthesia Reaction : None Katharina Gresham RN - 04/04/2019 9:53 EST Functional Assessment Functional ADL Evaluation Index EBN Bathing : Independent (2) Dressing : Independent (2) Toileting : Independent (2) Transferring Bed or Chair : Independent (2) Continence : Independent (2) Feeding : Independent (2) Katharina Gresham RN - 04/04/2019 9:53 EST ADL Index Score : 12 Katharina Gresham RN - 04/04/2019 9:53 EST Advance Directive Patient has Advance Directive *Q : No, patient refuses Advance Directive information Katharina Gresham RN - 04/04/2019 9:53 EST [place] Suicide Severity Rating Scale (C-SSRS) CSSRS Past Month Wish to be : No CSSRS Past Month Suicidal Thoughts : No CSSRS Lifetime Suicide Behavior : No Suicide Severity Rating Score : 0 Suicide Severity Rating : No Additional Care Required at this time Katharina Gresham RN - 04/04/2019 9:53 EST Psychosocial History Do You Have a History of the Following? : Patient denies history Currently in Unsafe Situation : No Katharina Gresham RN - 04/04/2019 9:53 EST Teaching/Learning Assessment Barriers To Learning : None evident Individuals Taught : Patient Readiness to Learn : Cooperative Katharina Gresham RN - 04/04/2019 9:53 EST Education Topics, Periop Preadmission Perioperative Education Grid Arrival Time/Place : Verbalizes understanding Infection Control : Verbalizes understanding NPO Status/Directions : Verbalizes understanding Preprocedure Preparations : Verbalizes understanding Preprocedure Tests/Labs : Verbalizes understanding Responsible Adult : Verbalizes understanding Take/Hold Medications Pre-Procedure : Verbalizes understanding Katharina Gresham RN - 04/04/2019 9:53 EST General Info Want Family/Rep/Phys Notified of Admit : No Emergency Contact #1 : [place] Emergency Contact #1 Emergency Contact #1 Relationship : spouse Emergency Contact #2 : . Emergency Contact #2 Phone Number : . Emergency Contact #2 Relationship : . Information Obtained From : Patient Primary Language : Indian Preferred Communication Mode : Verbal Communication Barrier : None Katharina Gresham RN - 04/04/2019 9:53 EST Yamil Scale Yamil Sensory Perception : No impairment Yamil Moisture : Rarely moist Yamil Activity : Walks occasionally Yamil Mobility : No limitation Yamil Nutrition : Adequate Yamil Friction and Shear : No apparent problem Yamil Score : 21 Katharina Gresham RN - 04/04/2019 9:53 EST Sleep Apnea Risk Assmt Hx of Obstructive Sleep Apnea Diagnosis : No Snore Loudly : No Tired, Fatigued, or Sleepy During Day : No Observed Stopping Breathing During Sleep : No Have/Are Being Treated for Hypertension : No BMI Greater Than 35 kg/m2 : Yes Age over 50 Years Old : No Gender Male : No Katharina Gresham RN - 04/04/2019 9:53 EST documented in this encounter Plan of Treatment Not on file documented as of this encounter Visit Diagnoses Not on filedocumented in this encounter
--- OUTSIDE RECORDS SUMMARY | 2025-01-30 13:53 | XMS_ITS | Encounter Summary ---
Author Organization [employer] ([place], [place], [place], [place]) Address [address] [place] [address] Care Team Providers Care Photoengraving Helper Name Role Phone Unavailable Primary Care Provider Unavailabl e Encounter Details Date Type Department Care Team (Late st Contact Info) Description 03/25/2019 Transcribed Document [facility] [place] Family Medicine [address] [place] [address] ProviderNancy MD [address] [place] [address] Social History Tobacco Use Types [...] Cerner Conversion Note - Historical ProviderMD - 03/25/2019 1:00 PM CONTROL AND RECOVERY SPECIAL TACTICS UM Authorization Entered On: 03/25/2019 13:01 EST Performed On: 03/25/2019 13:00 EST by TORSTEN SHIRLEY RN-Utilization Review Primary Insurance Authorization Authorization and Policy Numbers : Insurance 1 [facility] Number: [id number] Authorization Number: Insurance Primary Name : [facility] Policy Number: [id number] Authorization Status-Primary : Admit approved Authorization Number-Primary : [id number] Number of Days Authorized-Primary : 0 Day(s) Authorized Service Begin Date-Primary : 04/07/2019 EST Authorized Service End Date-Primary : 04/07/2019 EST Authorization Comments-Primary : [place] approved per availity for 1 day inpt Historical Authorization Comments-Primary : No Authorization Comments Found TORSTEN SHIRLEY RN-Utilization Review - 03/25/2019 13:00 EST Electronically signed by Cy, [facility] Conversion Manager Practice Cerner at 07/24/2022 7:17 PM CDT documented in this encounter Plan of Treatment Not on file documented as of this encounter Visit Diagnoses Not on filedocumented in this encounter
--- OUTSIDE RECORDS SUMMARY | 2025-01-30 13:54 | XMS_ITS | Patient Health Record ---
[facility] Address [address] [id number] Care Team Providers Care Power And Recovery Supervisor Name Role Phone Chantelle Bronson Primary Care Provider Cuauhtemoc Currya Unavailable [phone] Allergies Allergen (clinical drug ingredient) Drug/Non Drug Allergy documented on EMR Reaction Allergy Type Onset Date Status Penicillin Unknown Drug Allergy Active Reason For Referral No Information Medications Medication SIG (Take, Route, Frequency, Duration) Notes Start Date End Date Status Zepbound 12.5 MG/0.5ML INJECT 1 SYRINGE SUBCUTANEOUSLY ONCE A WEEK; Duration: 28 Not-Taking Wegovy 0.25 MG/0.5ML 0.25 mg Subcutaneou s once a week 09/25/2024 Not-Taking Immunizations Vaccine Route Administration Date Status Comme nts Fluzone Intradermal Quad private(18-64yrs) Unknown 01/13/2019 Refused COVID 19 Moderna Unknown 04/28/2020 Administered COVID 19 Moderna Unknown 05/28/2020 Administered Problems Problem Type SNOMED Code ICD Code Onset Dates Problem Status W/U Status Risk Notes Problem Generalized anxiety disorder (01368962) Generalized anxiety disorder (F41.1) Active confirmed Problem Morbid obesity (disorder) (093476604) Morbid (severe) obesity due to excess calories (E66.01) Active confirmed Problem Body mass index 40+ - severely obese (947353250) Body mass index (BMI) 40.0-44.9, adult (Z68.41) Active confirmed Problem Obesity (993379369) Obesity (BMI 30-39.9) (E66.9) Active confirmed Problem Insomnia (394203412) Insomnia, unspecified type (G47.00) Active confirmed Problem Obese class I (finding) (783280791346369 ) Obesity (BMI 30.0-34.9) (E66.9) Active confirmed Vital Signs Heart Rate 62 /min 01/01/2025 Blood pressure diastolic 68 mm Hg 01/01/2025 Height 63.50 in 01/01/2025 Blood pressure systolic 128 mm Hg 01/01/2025 Weight 165.8 lbs 01/01/2025 BMI 28.91 kg/m2 01/01/2025 Encounters Encounter Location Date Provider Diagnosis [facility] [address] [place], [place] [id number] 09/25/2024 Sena Curry Encounter for weight management Z76.89 and BMI 26.0-26.9,adult Z68.26 [facility] [address] [place], [place] [id number] 01/01/2025 Sena Curry Encounter for weight management Z76.89 and Screening, lipid Z13.220 [facility] [address] [place], [place] [id number] 02/20/2024 Bronson Paskenta [facility] [address] [place], [place] [id number] 09/22/2024 Bronson Paskenta [facility] [address] [place], [place] [id number] 09/26/2024 Sena Solanody [facility] [address] [place], [place] [id number] 10/06/2024 Bronson Paskenta Screening for breast cancer Z12.39 [facility] [address] [place], [place] [id number] 01/13/2025 Bronson Paskenta Assessments Encounter Date Diagnosis (ICD Code) Assessment Notes Treatment Notes Treatment Clinical Notes Section Notes 09/25/2024 BMI 26.0-26.9,adult (ICD-10 - Z68.26) 09/25/2024 Encounter for weight management (ICD-10 - Z76.89) Patient's insurance will no longer cover the zepbound. She has to switch to wegovy. 10/06/2024 Screening for breast cancer (ICD-10 - Z12.39) 01/01/2025 Screening, lipid (ICD-10 - Z13.220) 01/01/2025 Encounter for weight management (ICD-10 - Z76.89) Plan Of Treatment Pending Test Test Name Order Date Mammogram 10/06/2024 H-TSH 01/01/2025 H-CBC 01/01/2025 H-Lipid Panel 01/01/2025 H-CMP 01/01/2025 H-Glycohemoglobin A1C 01/01/2025 Insurance Providers Payer Name Payer Address Payer Phone Subscriber Number Group Number Insured Name Patient Relationship to Insured Coverage Start Date Coverage End Date [employer] [place] [employer] [id number] [place] [address] [id number] NICHOLAS HADLEY Self - patient is the insured Medical (General) History Surgical History Surgery Date(Month/Year) Cholecystectomy Gastric Sleeve 04/06/2019 Hospitalization History Reason Date(Month/Year) [place] 04/06- [facility] ER-lips were swollen 06/2017 Child x2
--- OUTSIDE RECORDS SUMMARY | 2025-01-30 13:54 | XMS_ITS | Encounter Summary ---
Author Organization [employer] ([place], [place], [place], [place]) Address [address] [place] [address] Care Team Providers Care Family Protection Specialist Name Role Phone Unavailable Primary Care Provider Unavailabl e Encounter Details Date Type Department Care Team (Late st Contact Info) Description 04/07/2019 Transcribed Document [facility] [place] Family Medicine [address] [place] [address] ProviderNancy MD [address] [place] [address] Social History Tobacco Use Types [...] Cerner Conversion Note - Historical ProviderMD - 04/07/2019 5:00 PM RESIDENT CARE COORDINATOR Chart Check - Review Order Profile Entered On: 04/07/2019 19:07 EST Performed On: 04/07/2019 19:07 EST by Gris Thomas RN Chart Check Powerplans Initiated/Discontinued as Appropriate : Yes All Active Orders Reviewed : Yes Gris Thomas RN - 04/07/2019 19:07 EST Electronically signed by Sadi Benoit Conversion Security Infrastructure Engineer Cerner at 07/24/2022 7:35 PM CDT documented in this encounter Plan of Treatment Not on file documented as of this encounter Visit Diagnoses Not on filedocumented in this encounter
--- OUTSIDE RECORDS SUMMARY | 2025-01-30 13:54 | XMS_ITS | Encounter Summary ---
Author Organization [employer] ([place], [place], [place], [place]) Address [address] [place] [address] Care Team Providers Care Director Life Insurance Name Role Phone Unavailable Primary Care Provider Unavailabl e Encounter Details Date Type Department Care Team (Late st Contact Info) Description 04/07/2019 Transcribed Document [facility] [place] [address] [place] [address] ProviderNancy MD [address] [place] [address] Social History Tobacco Use Types [...] Conversion Note - Historical ProviderMD - 04/07/2019 11:47 AM TOOL AND PRODUCTION PLANNER Nutrition Assessment Entered On: 04/08/2019 9:03 EST Performed On: 04/08/2019 9:03 EST by Kaela Sherwood RD, LD Nutrition Assessment Nutrition Assessment Reason : Automatic referral Kaela Sherwood RD, LD - 04/08/2019 9:02 EST Nutrition Recommendations Dietitian Recommendations : (04/08) RD consult rec'd for BMI >40. Pt admitted s/p gastric sleeve. RD to sign off. Please reconsult prn if RD is needed. Kaela Sherwood RD, LD - 04/08/2019 9:02 EST documented in this encounter Plan of Treatment Not on file documented as of this encounter Visit Diagnoses Not on filedocumented in this encounter
--- OUTSIDE RECORDS SUMMARY | 2025-01-30 13:54 | XMS_ITS | Encounter Summary ---
Author Organization [employer] ([place], [place], [place], [place]) Address [address] [place] [address] Care Team Providers Care Belt Loop Cutter Name Role Phone Unavailable Primary Care Provider Unavailabl e Encounter Details Date Type Department Care Team (Late st Contact Info) Description 04/07/2019 Transcribed Document [facility] [place] Family Medicine [address] [place] [address] ProviderNancy MD [facility] [place] [address] Social History Tobacco Use Types [...] Conversion Note - Historical ProviderMD - 04/07/2019 4:53 AM TEST PULLER Admission History, Adult Entered On: 04/07/2019 11:55 EST Performed On: 04/07/2019 11:53 EST by Gris Thomas RN Advance Directive Patient has Advance Directive *Q : No, patient refuses Advance Directive information Gris Thomas RN - 04/07/2019 11:53 EST Anesthesia/Transfusion History Family History of Anesthesia Reaction : No prior transfusion(s) Blood Transfusion Acceptable to Patient : Yes Transfusion History : Prior anesthesia without reaction Family History of Anesthesia Reaction : None Gris Thomas RN - 04/07/2019 11:53 EST Anticipated Discharge Needs Discharge To, Anticipated : Home Anticipated Discharge Needs at This Time : None Gris Thomas RN - 04/07/2019 11:53 EST Education Topics, Admission Orientation DCP GENERIC CODE Advance Directives : Verbalizes understanding Allergy Band Applied : Verbalizes understanding Assessment/Vital Signs : Verbalizes understanding Bed Control : Verbalizes understanding Call Light : Verbalizes understanding Confidentiality : Verbalizes understanding Diet/Room Service : Verbalizes understanding Fall Prevention : Verbalizes understanding Hand Hygiene : Verbalizes understanding Healthcare Provider Visit : Verbalizes understanding ID Band Applied : Verbalizes understanding Isolation Precautions : Verbalizes understanding Orientation to Room/Bathroom : Verbalizes understanding Patient Bill of Rights : Verbalizes understanding Patient Rights/Responsibilities : Verbalizes understanding Patient Safety : Verbalizes understanding Personal Privacy Code : Verbalizes understanding Rapid Response Initiated by Patient/Family : Verbalizes understanding Rounding : Verbalizes understanding Siderails use/risks : Verbalizes understanding Skin Precautions : Verbalizes understanding Smoking Policy : Verbalizes understanding Telemetry Monitoring : Verbalizes understanding Television/Phone : Verbalizes understanding Visiting Policy : Verbalizes understanding Gris Thomas RN - 04/07/2019 11:53 EST Functional Assessment Living Situation : Home Patient Lives With : Dependent Child/Children, Spouse Persons Assisting Patient at Home : Spouse Current Daily Living Assistance : None Sensory Deficits : None Mobility Assistance Prior to Admission : Independent DAMON Hx Falls Immediate/Within 3 Months : No Current Home Treatments : None Home Equipment : None Professional Skilled Services : None Special Services and Community Resources : None Gris Thomas RN - 04/07/2019 11:53 EST General Info Arrived From : Other: PACU Mode of Arrival on Unit : Bed Patient Arrival Date/Time : 04/07/2019 9:48 EST Legal Guardian : Spouse Want Family/Rep/Phys Notified of Admit : No Emergency Contact #1 : [place] Emergency Contact #1 Emergency Contact #1 Relationship : spouse Emergency Contact #2 : . Emergency Contact #2 Phone Number : . Emergency Contact #2 Relationship : . Information Obtained From : Patient Primary Language : Senegalese Preferred Communication Mode : Verbal Communication Barrier : None Currently Lactating : No Status : Patient denies Gris Thomas RN - 04/07/2019 11:53 EST Fall Risk Scales ABCs Fall Injury Risk Identification : None DAMON Hx Falls Immediate/Within 3 Months : No Damon Secondary Diagnosis : No DAMON Use of Ambulatory Aid : Bed rest/Nurse assist DAMON IV Therapy or IV Access : Yes Damon Gait/Transferring : Normal, bedrest, immobile Damon Mental Status : Oriented to own ability Damon Fall Risk Score : 20 DAMON Fall Scale Risk Level : 0-24 Low Risk Springer Fall Interventions : Adequate lighting, Assistive devices within reach, Bed in low position, Call device within reach, Fall prevention handout/education per facility policy, Frequent orientation to call device, Frequent orientation to surroundings, Hourly comfort/safety rounds, Non-slip footwear, Personal items within reach, Reinforced to call for assistance before getting out of bed, Room free of clutter/spills, Upper side-rails up, Wheels locked, Wires/Cords secured Barriers to Learning : None evident Learning Style Preferences Family : None Learning Style Preferences Patient : None Gris Thomas RN - 04/07/2019 11:53 EST Health Histories Smoking Status : Never (less than 100 in lifetime; none in last 30 days) Smokeless Tobacco Status : Never Implant/Device Type, Transition Mgr and Model : tian Gris Thomas RN - 04/07/2019 11:53 EST Social History (As Of: 04/07/2019 11:55:02 EST) Tobacco: Never (less than 100 in [...] (Last Updated: 02/28/2019 11:53:53 EST by TOREY SANCHEZ, ROBERTO CARLOS) Height and Weight, Clinical Dosing Height Source : Stated Height Entry Format : [place] Height, Feet : 5 ft(Converted to: 152 cm, 60 Inch) Height, Inches : 3.75 Inch(Converted to: 0 ft 4 Inch, 9.52 cm) Clinical Height : 161.93 cm Weight Source : Standing scale Weight Entry Format : [place] Clinical Dosing Weight : 114.09 kg Weight, Pounds : 251 lb Body Surface Area (BSA) : 2.15 m2 Body Mass Index : 43.5 kg/m2 (>HHI) [place] Body Weight : 54 kg Gris Thomas RN - 04/07/2019 11:53 EST Infectious Disease History Infectious Disease History : Chicken pox/Shingles, Influenza, Measles Isolation Needed : Standard Fever/Chills Last 48 Hours : No Travel To Regions with Travel Advisories : No Travel Outside [place] Within Last 30 Days : No Contact With Traveler to Advisory Region : No Tuberculosis Symptoms : None Gris Thomas RN - 04/07/2019 11:53 EST Influenza Vaccine Asmt, Adult Previous Vaccines from Immunization Schedule : No qualifying data available. Influenza Immunization, Current Season : No Inactivated Flu Vaccine Contraindications : No contraindications to inactivated influenza vaccine Transplant Workup/Recent Transplant : No Order for Influenza Vaccine : Declined Vaccination Gris Thomas RN - 04/07/2019 11:53 EST Pneumococcal Vaccine Previous Vaccines from Immunization Schedule : No qualifying data available. Pneumonia Immunization Received : No Pneumococcal Risk Assessment < Age 65 : None Gris Thomas RN - 04/07/2019 11:53 EST Order Details Transport Mode Order Detail : Wheelchair Isolation Precautions Order Detail : Standard Precautions Order Detail : 0 IV Order Detail : 1 Oxygen Order Detail : 1 Nurse Collect Order Detail : 0 Lift/Transfer : Minimal Central Line Order Detail : No Room Service : Not Appropriate Arterial Line : No Gris Thomas RN - 04/07/2019 11:53 EST Nutrition History Eating Poorly Due to Decreased Appetite : No Unplanned Weight Loss in Past 3-6 Months : No Malnutrition Screening Tool Total(mal) : 0 Malnutrition Screening Tool Risk Level : Patient not at risk Gris Thomas RN - 04/07/2019 11:53 EST [place] Suicide Severity Rating Scale (C-SSRS) CSSRS Past Month Wish to be : No CSSRS Past Month Suicidal Thoughts : No CSSRS Lifetime Suicide Behavior : No Suicide Severity Rating Score : 0 Suicide Severity Rating : No Additional Care Required at this time Gris Thomas RN - 04/07/2019 11:53 EST Psychosocial History Do You Have a History of the Following? : Patient denies history Currently in Unsafe Situation : No Gris Thomas RN - 04/07/2019 11:53 EST Sleep Apnea Risk Assmt Hx of Obstructive Sleep Apnea Diagnosis : No Snore Loudly : No Tired, Fatigued, or Sleepy During Day : No Observed Stopping Breathing During Sleep : No Have/Are Being Treated for Hypertension : No BMI Greater Than 35 kg/m2 : Yes Age over 50 Years Old : No Neck Circumference Greater Than 40 cm : No Gender Male : No STOP-BANG Sleep Apnea Risk Level Score : 1 Gris Thomas RN - 04/07/2019 11:53 EST Valuables and Belongings Valuables and Belongings : Clothing, Personal items Clothing : Common streetwear Clothing Disposition : With family Personal Items : Cell phone Personal Items Disposition : With family Gris Thomas RN - 04/07/2019 11:53 EST documented in this encounter Plan of Treatment Not on file documented as of this encounter Visit Diagnoses Not on filedocumented in this encounter
--- OUTSIDE RECORDS SUMMARY | 2025-01-30 13:54 | XMS_ITS | Encounter Summary ---
Author Organization [employer] ([place], [place], [place], [place]) Address [address] [place] [address] Care Team Providers Care General Manager Oracle Data Cloud Name Role Phone Unavailable Primary Care Provider Unavailabl e Encounter Details Date Type Department Care Team (Late st Contact Info) Description 04/07/2019 Transcribed Document [facility] [place] Family Medicine [address] [place] [address] ProviderNancy MD [address] [place] [address] Social History Tobacco Use Types [...] Conversion Note - Historical ProviderMD - 04/07/2019 10:27 AM OIL SCOUT UM Authorization Entered On: 04/07/2019 10:27 EST Performed On: 04/07/2019 10:27 EST by Ana Camargo Rn-Utilization Review Primary Insurance Authorization Authorization and Policy Numbers : Insurance 1 [facility] Policy Number: [id number] Authorization Number: [id number] Insurance Primary [facility] Policy Number: [id number] Authorization Status-Primary : Admit approved Authorization Number-Primary : [id number] Number of Days Authorized-Primary : 0 Day(s) Authorized Service Begin Date-Primary : 04/07/2019 EST Authorized Service End Date-Primary : 04/07/2019 EST Historical Authorization Comments-Primary : Comment 1: [place] approved per availity for 1 day inpt (TORSTEN SHIRLEY RN-Utilization Review 03/25/2019 13:00) Ana Camargo Rn-Utilization Review - 04/07/2019 10:27 EST Electronically signed by Cy, [facility] Conversion Senior Government Program Analyst Cerner at 07/24/2022 7:35 PM CDT documented in this encounter Plan of Treatment Not on file documented as of this encounter Visit Diagnoses Not on filedocumented in this encounter
--- OUTSIDE RECORDS SUMMARY | 2025-01-30 13:54 | XMS_ITS | Encounter Summary ---
Author Organization [employer] ([place], [place], [place], [place]) Address [address] [place] [address] Care Team Providers Care Stone Layout Marker Name Role Phone Unavailable Primary Care Provider Unavailabl e Encounter Details Date Type Department Care Team (Late st Contact Info) Description 04/07/[address] [facility] [place] Family Medicine [address] [place] [address] ProviderNancy MD [address] [place] [address] Social History Tobacco Use Types [...] Conversion Note - Historical ProviderMD - 04/07/2019 12:00 PM GARBAGE TRUCK HELPER Pain Assessment Entered On: 04/07/2019 19:06 EST Performed On: 04/07/2019 14:58 EST by Gris Thomas RN Intervention Information: acetaminophen Performed by Gris Thomas RN on 04/07/2019 14:53:00 EST acetaminophen,1000mg IV Piggyback,Right Lower Forearm Pain Assessment Pain Assessment : Follow-up assessment Pain Scale Goal : 4 Pain Scale Used : 0-10 Scale Gris Thomas RN - 04/07/2019 19:06 EST Pain Scale Intensity : 6 Gris Thomas RN - 04/07/2019 19:06 EST Image 4 - Images currently included in the form version of this document have not been included in the text rendition version of the form. documented in this encounter Plan of Treatment Not on file documented as of this encounter Visit Diagnoses Not on filedocumented in this encounter
--- OUTSIDE RECORDS SUMMARY | 2025-01-30 13:54 | XMS_ITS | Encounter Summary ---
Author Organization [employer] ([place], [place], [place], [place]) Address [address] [place] [address] Care Team Providers Care Mix Technician Name Role Phone Unavailable Primary Care Provider Unavailabl e Encounter Details Date Type Department Care Team (Late st Contact Info) Description 04/07/2019 Transcribed Document [facility] [place] Family [place] [address] ProviderNancy MD [address] [place] [address] Social History Tobacco Use Types [...] Conversion Note - Historical ProviderMD - 04/07/2019 6:39 AM GLOVE BRUSHER Pre Procedure Adult Entered On: 04/07/2019 6:47 EST Performed On: 04/07/2019 6:39 EST by Olamide Kendrick RN Height and Weight, Clinical Dosing Height Source : Stated Height Entry Format : [place] Height, Feet : 5 ft(Converted to: 152 cm, 60 Inch) Height, Inches : 3.75 Inch(Converted to: 0 ft 4 Inch, 9.52 cm) Clinical Height : 161.93 cm Weight Source : Standing scale Weight Entry Format : [place] Clinical Dosing Weight : 114.09 kg Weight, Pounds : 251 lb Body Surface Area (BSA) : 2.15 m2 Body Mass Index : 43.5 kg/m2 (>HHI) [place] Body Weight : 54 kg Olamide Kendrick RN - 04/07/2019 6:39 EST Health Histories Smoking Status : Never (less than 100 in lifetime; none in last 30 days) Smokeless Tobacco Status : Never Implant/Device Type, Kettle Firer and Model : tian Olamide Kendrick RN - 04/07/2019 6:39 EST Social History (As Of: 04/07/2019 06:47:01 EST) Tobacco: Never (less than 100 in [...] Region : No Tuberculosis Symptoms : None Olamide Kendrick RN - 04/07/2019 6:39 EST Anesthesia/Transfusion History Family History of Anesthesia Reaction : No prior transfusion(s) Transfusion History : Prior anesthesia without reaction Family History of Anesthesia Reaction : None Olamide Kendrick RN - 04/07/2019 6:39 EST Functional Assessment Living Situation : Home [...] Special Services and Community Resources : None Olamide Kendrick RN - 04/07/2019 6:39 EST [place] Suicide Severity Rating Scale (C-SSRS) CSSRS Past Month Wish to be : No CSSRS Past Month Suicidal Thoughts : No CSSRS Lifetime Suicide Behavior : No Suicide Severity Rating Score : 0 Suicide Severity Rating : No Additional Care Required at this time Olamide Kendrick RN - 04/07/2019 6:39 EST Psychosocial History Do You Have a History of the Following? : Patient denies history Currently in Unsafe Situation : No Olamide Kendrick RN - 04/07/2019 6:39 EST Advance Directive Patient has Advance Directive *Q : No, patient refuses Advance Directive information Olamide Kendrick RN - 04/07/2019 6:39 EST Spiritual/Cultural Needs Any Spiritual/Cultural Needs or Requests : No Olamide Kendrick RN - 04/07/2019 6:39 EST Teaching/Learning Assessment Barriers To Learning : None evident Individuals Taught : Patient Readiness to Learn : Cooperative Readiness to Learn : Explanation Learning Style Preferences Patient : None Learning Style Preferences Family : None Olamide Kendrick RN - 04/07/2019 6:39 EST Education Topics, Periop Preadmission Perioperative Education [place] : Verbalizes understanding Infection Control : Verbalizes understanding IV's : Verbalizes understanding NPO Status/Directions : Verbalizes understanding Pain Management : Verbalizes understanding Postoperative Care Preparations : Verbalizes understanding Preprocedure Preparations : Verbalizes understanding Preprocedure Tests/Labs : Verbalizes understanding Olamide Kendrick RN - 04/07/2019 6:39 EST General Info Arrived From : Home Mode of Arrival on Unit : Ambulatory Patient Arrival Date/Time : 04/07/2019 5:35 EST Legal Guardian : Spouse Want Family/Rep/Phys Notified of Admit : No Emergency Contact #1 : [place] Emergency Contact #1 Emergency Contact #1 Relationship : spouse Emergency Contact #2 : . Emergency Contact #2 Phone Number : . Emergency Contact #2 Relationship : . Information Obtained From : Patient Primary Language : Togolese Preferred Communication Mode : Verbal Communication Barrier : None Currently Lactating : No Status : Patient denies Olamide Kendrick RN - 04/07/2019 6:39 EST Vital Measurements Temperature Source : Temporal artery scanning Temperature Mode : Fahrenheit Temperature, Fahrenheit : 98.5 Deg F Clinical Temperature, C : 36.9 Deg C Heart Rate, Apical : 71 bpm Respiratory Rate : 16 Breaths/Min Blood Pressure Location : Arm, right upper Systolic Blood Pressure : 125 mmHg Diastolic Blood Pressure : 80 mmHg Oxygen Saturation : 96 % Oxygen Therapy Mode : Room air Olamide Kendrick RN - 04/07/2019 6:39 EST Sleep Apnea Risk Assmt Hx of [...] Sleep Apnea Risk Level Score : 1 Olamide Kendrick RN - 04/07/2019 6:39 EST Yamil Scale Yamil Sensory Perception : No impairment Yamil Moisture : Rarely moist Yamil Activity : Walks occasionally Yamil Mobility : No limitation Yamil Nutrition : Adequate Yamil Friction and Shear : No apparent problem Yamil Score : 21 Olamide Kendrick RN - 04/07/2019 6:39 EST Oxygen Therapy Oxygen Therapy Mode : Room air Olamide Kendrick RN - 04/07/2019 6:39 EST Pain Assessment Pain Assessment : Initial assessment Pain Scale Goal : 4 Pain Scale Used : 0-10 Scale Olamide Kendrick RN - 04/07/2019 6:39 EST Fall Risk Scales ABCs Fall Injury Risk Identification : None DAMON Hx Falls Immediate/Within 3 Months : No Damon Secondary Diagnosis : No DAMON Use of Ambulatory Aid : None DAMON IV Therapy or IV Access : Yes Damon Gait/Transferring : Normal, bedrest, immobile Damon Mental Status : Oriented to own ability Damon Fall Risk Score : 20 DAMON Fall Scale Risk Level : 0-24 Low Risk Liberal Fall Interventions : Adequate lighting, Bed in low position, Call device within reach, Room free of clutter/spills, Upper side-rails up, Wheels locked Olamide Kendrick RN - 04/07/2019 6:39 EST Fall Risk Education Grid Call light use : Verbalizes understanding Nonskid Footwear Use : Verbalizes understanding Prevention Responsibility Patient : Verbalizes understanding Olamide Kendrick RN - 04/07/2019 6:39 EST Barriers to Learning : None evident Individuals Taught : Patient Readiness to Learn : Cooperative Teaching Method : Explanation Learning Style Preferences Family : None Learning Style Preferences Patient : None Olamide Kendrick RN - 04/07/2019 6:39 EST Education Topics, Day of Surgery DayofSurgery Education Grid Fall Risks : Verbalizes understanding Family Instructions : Verbalizes understanding Infection Control : Verbalizes understanding Infection Risks : Verbalizes understanding IV's : Verbalizes understanding Medication Instructions : Verbalizes understanding Pain Management : Verbalizes understanding Plan of Care : Verbalizes understanding Olamide Kendrick RN - 04/07/2019 6:39 EST Valuables and Belongings Valuables and Belongings : Clothing, Personal items Clothing : Common streetwear Clothing Disposition : With family Personal Items : Cell phone Personal Items Disposition : With family Olamide Kendrick RN - 04/07/2019 6:39 EST Pain Scale Intensity : 0 Olamide Kendrick RN - 04/07/2019 6:39 EST Image 4 - Images currently included in the form version of this document have not been included in the text rendition version of the form. Stevo Coma Hull Best Motor Response : Obey commands Stevo Best Verbal Response : Oriented Stevo Eye Opening Response : Spontaneous Stevo Coma Score : 15 Olamide Kendrick RN - 04/07/2019 6:39 EST Electronically signed by Lakhwinder Benoit Conversion Process Validation Engineer Cerner at 07/24/2022 7:24 PM CDT documented in this encounter Plan of Treatment Not on file documented as of this encounter Visit Diagnoses Not on filedocumented in this encounter
--- OUTSIDE RECORDS SUMMARY | 2025-01-30 13:54 | XMS_ITS | Encounter Summary ---
Author Organization [employer] ([place], [place], [place], [place]) Address [address] [place] [address] Care Team Providers Care Transfer Machine Operator Name Role Phone Unavailable Primary Care Provider Unavailabl e Encounter Details Date Type Department Care Team (Late st Contact Info) Description 04/08/2019 Transcribed Document [facility] [place] [address] [place] [address] ProviderNancy MD [address] [place] [address] Social History Tobacco Use Types [...] Cerner Conversion Note - Historical ProviderMD - 04/08/2019 9:49 PM PASTEURISER OPERATOR Pain Assessment Entered On: 04/08/2019 4:48 EST Performed On: 04/08/2019 5:47 EST by Bella Payan, Carpet Floor Layer Apprentice-Nursing Intervention Information: acetaminophen-HYDROcodone Performed by Bella Payan, Carpet Floor Layer Apprentice-Nursing on 04/08/2019 04:47:00 EST acetaminophen-HYDROcodone,2Tab Oral,Pain (Moderate 4-6) Pain Assessment Pain Assessment : Follow-up assessment Pain Scale Goal : 4 Pain Scale Used : 0-10 Scale Bella Payan, Carpet Floor Layer Apprentice-Nursing - 04/08/2019 4:47 EST Pain Scale Intensity : 2 Bella Payan, Carpet Floor Layer Apprentice-Nursing - 04/08/2019 4:47 EST Image 4 - Images currently included in the form version of this document have not been included in the text rendition version of the form. documented in this encounter Plan of Treatment Not on file documented as of this encounter Visit Diagnoses Not on filedocumented in this encounter
--- OUTSIDE RECORDS SUMMARY | 2025-01-30 13:54 | XMS_ITS | Encounter Summary ---
Author Organization [employer] ([place], [place], [place], [place]) Address [address] [place] [address] Care Team Providers Care Care Professional Name Role Phone Unavailable Primary Care Provider Unavailabl e Encounter Details Date Type Department Care Team (Late st Contact Info) Description 04/07/2019 Transcribed Document [facility] [place] Family Medicine [address] [place] [address] ProviderNancy MD [address] [place] [address] Social History Tobacco Use Types [...] Conversion Note - Historical ProviderMD - 04/07/2019 9:49 AM ADJUNCT PROFESSOR OF VOICE Pain Assessment Entered On: 04/07/2019 19:06 EST Performed On: 04/07/2019 10:40 EST by Gris Thomas RN Intervention Information: HYDROmorphone Performed by Gris Thomas RN on 04/07/2019 10:10:00 EST HYDROmorphone,0.5mg IV Push,Right Lower Forearm,Pain (Severe 7-10) Pain Assessment Pain Assessment : Follow-up assessment Pain Scale Goal : 4 Pain Scale Used : 0-10 Scale Gris Thomas RN - 04/07/2019 19:06 EST Pain Scale Intensity : 7 Gris Thomas RN - 04/07/2019 19:06 EST Image 4 - Images currently included in the form version of this document have not been included in the text rendition version of the form. documented in this encounter Plan of Treatment Not on file documented as of this encounter Visit Diagnoses Not on filedocumented in this encounter
--- OUTSIDE RECORDS SUMMARY | 2025-01-30 13:54 | XMS_ITS | Encounter Summary ---
Author Organization [employer] ([place], [place], [place], [place]) Address [address] [place] [address] Care Team Providers Care Pediatric Nurse Name Role Phone Unavailable Primary Care Provider Unavailabl e Encounter Details Date Type Department Care Team (Late st Contact Info) Description 04/07/2019 Transcribed Document [facility] [place] [facility] [place] [address] ProviderNancy MD [address] [place] [address] Social History Tobacco Use Types Packs/Day Years Used Date Smoking Tobacco: Never Assessed Comments Unknown Sex and Gender Information Value Date Recorded Sex Assigned at Female 10/04/2021 8:37 PM CDT Legal Sex Female 8:37 PM CDT Gender Identity Female 10/04/2021 8:37 PM CDT Sexual Orientation Not on file documented as of this encounter Miscellaneous Notes * Cerner Conversion Note - Nancy Bal MD - 04/07/2019 8:57 AM ARMATURE AND ROTOR WINDER DATE OF PROCEDURE: 04/07/2019 SURGEON: Nilton Harp MD PREOPERATIVE DIAGNOSIS: Morbid obesity. POSTOPERATIVE DIAGNOSES: 1. Morbid obesity. 2. Hiatal hernia. PROCEDURES: 1. Laparoscopic sleeve gastrectomy. 2. Laparoscopic repair of hiatal hernia. FRANCHISE SPECIALIST: Doni Urbina M.D. BLOOD LOSS: Less than 30 mL. INDICATIONS: Ms. Baig is a 38-year-old female with history of longstanding morbid obesity. She had a weight of 255 pounds, BMI of 44. Her morbid obesity is accompanied by metabolic syndrome, sleep apnea, GERD, osteoarthritis, joint pain, and shortness of breath. Given those issues, she elected to go ahead and proceed at this time with a laparoscopic sleeve gastrectomy. DESCRIPTION OF PROCEDURE: The patient was taken to the OR, placed in the supine position. Under general anesthesia, the patient's abdomen was prepped and draped in usual fashion. We initially made a small incision, approximately between umbilicus and xiphoid, slightly to the patient's left, a little 5 mm incision. A Veress needle was inserted and the abdomen was distended with CO2 to 17 mmHg. I then replaced it with an Optiview 5 mm trocar. I then placed, in the subxiphoid area another 5 mm incision. Trocar pushed through and then we replaced that with a liver retractor which was then positioned. We then placed two more 5 mm trocars in the left upper quadrant and then another five in the right subcostal area and then a 15 mm trocar was then placed in the right upper quadrant below the other trocar. The dissection started out up around the angle of His and took a little bit of peritoneum down just towards the left lateral, just opened up a small window at the angle of His, then came down and started doing the sleeve. This is approximately 8 cm proximal to the pylorus across from the incisura and took down short gastrics using the [place] cautery dissector and all the way up the greater curve of the stomach, to completely mobilize this all the way up to and through the angle of His. Any posterior attachments were taken down as well. This was nicely mobilized. At this point, we had anesthesia pass a 56-Ukrainian bougie, first placing the staple line across the stomach, and we started taking this down across from the incisura and made sure not to narrow this too much along the lesser curve and plenty of room to bring the bougie through this area. This was then stapled, and we did several additional staple lines all with SeamGuard, cinching this up against the bougie and creating a sleeve at the lesser curvature. The stump taken all the way through the angle of His, which completely then detached the stomach specimen. At this point, we had anesthesia remove the bougie, and this was then oversewn with a running PDS Stratafix suture, and this was run all the way from the angle of His down to the end where we initiated the sleeve. At this point, as we did that closure, I also took a little bit of omentum and attached it up to the suture line as we ran this down the sleeve. The stomach itself was then extracted by dilating up the 15 mm trocar site a little bit on the fascial side and putting in a specimen bag retriever, and the specimen was placed into that, and it was removed through that 15 mm trocar site. At that point, we then closed that fascia at the 15 mm site with a couple of #1 Vicryl sutures placed under laparoscopic guidance with a suture passer. This completed the sleeve. Hemostasis was good throughout and we then removed all the other trocars and deflated the abdomen. The skin was closed with a little antibiotic powder. The patient was not allergic, and this was then closed with gabe. Sterile dressing was applied. During the performance of sleeve gastrectomy, patient was noted to have an obvious hiatal hernia after placing the liver retractors. This was dissected out by dividing hernia sac, peritoneum, all starting anteriorly and clearing off the right entire crura anteriorly and to the left side as well mobilizing the distal esophagus and dissecting that out as well. Before sewing up the sleeve, but after the sleeve specimen had been stapled off, I went ahead and did close the hiatal hernia defect using a 2-0 nonabsorbable barbed suture to reapproximate the crura anteriorly. /[id number] MD NATALIE Graham/JIMENEZ / NATALIE / MODL /[id number] documented in this encounter Plan of Treatment Not on file documented as of this encounter Visit Diagnoses Not on filedocumented in this encounter
--- OUTSIDE RECORDS SUMMARY | 2025-01-30 13:54 | XMS_ITS | Encounter Summary ---
Author Organization [employer] ([place], [place], [place], [place]) Address [address] [place] [address] Care Team Providers Care Automotive Tire Worker Name Role Phone Unavailable Primary Care Provider Unavailabl e Encounter Details Date Type Department Care Team (Late st Contact Info) Description 04/08/2019 Transcribed Document [facility] [place] Family Medicine [address] [place] [address] ProviderNancy MD [address] [place] [address] Social History Tobacco Use Types [...] Conversion Note - Historical ProviderMD - 04/08/2019 3:05 PM SENIOR CONSUMER INSIGHTS CONSULTANT Stroke/Warfarin Instructions Entered On: 04/08/2019 15:05 EST Performed On: 04/08/2019 15:05 EST by Torri Chang RN Stroke/Warfarin Instructions Stroke/TIA Discharge Ins : N/A Warfarin Discharge Ins : N/A Torri Chang RN - 04/08/2019 15:05 EST documented in this encounter Plan of Treatment Not on file documented as of this encounter Visit Diagnoses Not on filedocumented in this encounter
--- OUTSIDE RECORDS SUMMARY | 2025-01-30 13:54 | XMS_ITS | Encounter Summary ---
Author Organization [employer] ([place], [place], [place], [place]) Address [address] [place] [address] Care Team Providers Care Bindery Machine Feeder Offbearer Name Role Phone Unavailable Primary Care Provider Unavailabl e Encounter Details Date Type Department Care Team (Late st Contact Info) Description 04/07/[address] [facility] [place] Family Medicine [address] [place] [address] ProviderNancy MD [address] [place] [address] Social History Tobacco Use Types Packs/Day Years Used Date Smoking Tobacco: Never Assessed Comments Unknown Sex and Gender Information Value Date Recorded Sex Assigned at Female 10/04/2021 8:37 PM CDT Legal Sex Female 8:37 PM CDT Gender Identity Female 10/04/2021 8:37 PM CDT Sexual Orientation Not on file documented as of this encounter Miscellaneous Notes * Cerner Conversion Note - Nancy ProviderMD - 04/07/2019 8:07 AM MARKET RELATIONSHIP MANAGER [facility] [place] Main [place] PACU Summary Primary Physician: DURAN JIMENEZ MD-SUR Finalized Date/Time: 04/07/19 14:03:31 Pt. Name: NGOZI NICHOLASASIA Flynn/Sex: 1980 Female Med Rec #: [id number] Physician: DURAN JIMENEZ MD-SUR Financial #: [id number] Pt. Type: I Room/Bed: [facility]/1 Admit/Disch: 04/07/19 04:54:00 - Institution: [facility] OR PACU Case Times Entry 1 In PACU I 04/07/19 09:03:00 Ready for PACU 04/07/19 09:44:00 Discharge Discharge from PACU 04/07/19 09:44:00 I Last Modified By: Sarai Shah RN 04/07/19 14:03:20 Finalized By: Sarai Shah, RN Document Signatures Signed By: Sarai Shah RN 04/07/19 14:03 Electronically signed by Cy Ranken [facility] Conversion Cpc Coder Cerner at 07/24/2022 7:21 PM CDT documented in this encounter Plan of Treatment Not on file documented as of this encounter Visit Diagnoses Not on filedocumented in this encounter
--- OUTSIDE RECORDS SUMMARY | 2025-01-30 13:54 | XMS_ITS | Encounter Summary ---
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 Name: NICHOLAS MELVINY /Sex: 1980 Female Med Rec #: [id number] Physician: DURAN JIMENEZ MD-SUR Financial #: [id number] Pt. Type: I Room/Bed: [facility] Admit/Disch: 04/07/19 04:54:00 - [place] [facility] [place] Case Attendance Entry 1 Entry 2 Entry 3 Case Attendee DURAN JIMENEZ ZARAK, ALBERTO, MD ABNEY, MARSHALL, CRNA MD-SUR Role Performed Surgeon/Proceduralist, Surgeon/Proceduralist, IMPROVEMENT COORDINATOR/Nurse Occupational Therapy Co Director First Second Time In 04/07/19 07:49:00 04/07/19 07:49:00 04/07/19 07:49:00 Time Out 04/07/19 09:03:00 04/07/19 08:36:00 04/07/19 09:03:00 Procedure Gastrectomy Sleeve Gastrectomy Sleeve Gastrectomy Sleeve Laparoscopic, Hernia Laparoscopic, Hernia Laparoscopic, Hernia Repair Diaphragmatic Repair Diaphragmatic Repair Diaphragmatic Laparoscopic Laparoscopic Laparoscopic Other Attendee Superficial Wound Closed By: Last Modified By: Gladys Vidal RN Dobson, Melissa, RN Dobson, Melissa, RN 04/07/19 09:11:08 04/07/19 08:47:06 04/07/19 09:11:08 Entry 4 Entry 5 Entry 6 Case Attendee CATIE RAMIREZ, Lizette Reeves, Scrub Gladys Vidal, ROBERTO CARLOS Service Member Tech Role Performed Scrub, First Scrub, Second Digital Operations Analyst, First Time In 04/07/19 07:49:00 04/07/19 07:49:00 04/07/19 07:49:00 Time Out 04/07/19 09:03:00 04/07/19 09:03:00 04/07/19 09:03:00 Procedure Gastrectomy Sleeve Gastrectomy Sleeve Gastrectomy Sleeve Laparoscopic, Hernia Laparoscopic, Hernia Laparoscopic, Hernia Repair Diaphragmatic Repair Diaphragmatic Repair Diaphragmatic Laparoscopic Laparoscopic Laparoscopic Other Attendee Superficial Wound Closed By: Last Modified By: Gladys Vidal RN Dobson, Melissa, Gladys Schroeder RN 04/07/19 09:11:08 04/07/19 09:11:08 04/07/19 09:11:08 Entry 7 Entry 8 Case Attendee Cielo Asif, Rep-SSI OTHER, ATTENDEE #1 Role Performed Relationship Assoc, Ancillary Vendor Time In 04/07/19 07:49:00 04/07/19 08:07:00 Time Out 04/07/19 09:03:00 04/07/19 08:29:00 Procedure Gastrectomy Sleeve Gastrectomy Sleeve Laparoscopic, Hernia Laparoscopic, Hernia Repair Diaphragmatic Repair Diaphragmatic Laparoscopic Laparoscopic Other Attendee ALFRED MATHUR Superficial Wound Closed By: Last Modified By: Gladys Vidal RN Dobson, Melissa, RN 04/07/19 09:11:08 04/07/19 08:22:39 [facility] IntraOp Case Attendance Audit 04/07/19 09:11:08 Polyethylene Combiner: [id number] Modifier: [id number] 1 <+> Time Out 1 <*> Procedure Gastrectomy Sleeve Laparoscopic, Hernia Repair Diaphragmatic Laparoscopic 2 <*> Procedure Gastrectomy Sleeve Laparoscopic, Hernia Repair Diaphragmatic Laparoscopic 3 <+> Time Out 3 <*> Procedure Gastrectomy Sleeve Laparoscopic, Hernia Repair Diaphragmatic Laparoscopic 4 <+> Time Out 4 <*> Procedure Gastrectomy Sleeve Laparoscopic, Hernia Repair Diaphragmatic Laparoscopic 5 <+> Time Out 5 <*> Procedure Gastrectomy Sleeve Laparoscopic, Hernia Repair Diaphragmatic Laparoscopic 6 <+> Time Out 6 <*> Procedure Gastrectomy Sleeve Laparoscopic, Hernia Repair Diaphragmatic Laparoscopic 7 <+> Time Out 7 <*> Procedure Gastrectomy Sleeve Laparoscopic, Hernia Repair Diaphragmatic Laparoscopic 8 <*> Procedure Gastrectomy Sleeve Laparoscopic, Hernia Repair Diaphragmatic Laparoscopic 04/07/19 08:47:06 Polyethylene Combiner: [id number] Modifier: [id number] 2 <+> Time Out 2 <*> Procedure Gastrectomy Sleeve Laparoscopic, Hernia Repair Diaphragmatic Laparoscopic 8 <+> Time Out 8 <*> Procedure Gastrectomy Sleeve Laparoscopic, Hernia Repair Diaphragmatic Laparoscopic 04/07/19 08:22:39 Polyethylene Combiner: [id number] Modifier: [id number] <+> 8 Case Attendee <+> 8 Role Performed <+> 8 Time In <+> 8 Procedure <+> 8 Other Attendee 04/07/19 08:20:27 Polyethylene Combiner: [id number] Modifier: [id number] 1 <*> Procedure Gastrectomy Sleeve Laparoscopic 2 <*> Procedure Gastrectomy Sleeve Laparoscopic 3 <*> Procedure Gastrectomy Sleeve Laparoscopic 4 <*> Procedure Gastrectomy Sleeve Laparoscopic 5 <*> Procedure Gastrectomy Sleeve Laparoscopic 6 <*> Procedure Gastrectomy Sleeve Laparoscopic 7 <*> Procedure Gastrectomy Sleeve Laparoscopic 04/07/19 08:12:21 Polyethylene Combiner: [id number] Modifier: [id number] <+> 1 Time In <+> 1 Procedure 2 <+> Time In 2 <*> Procedure Gastrectomy Sleeve Laparoscopic 3 <+> Time In 3 <*> Procedure Gastrectomy Sleeve Laparoscopic 4 <+> Time In 4 <*> Procedure Gastrectomy Sleeve Laparoscopic 5 <+> Time In 5 <*> Procedure Gastrectomy Sleeve Laparoscopic 6 <+> Time In 6 <*> Procedure Gastrectomy Sleeve Laparoscopic 7 <+> Time In 7 <*> Procedure Gastrectomy Sleeve Laparoscopic [facility] IntraOp Case Times Entry 1 Patient In Room Time 04/07/19 07:49:00 Out Room Time 04/07/19 09:03:00 Anesthesia Start Time 04/07/19 07:49:00 Stop Time 04/07/19 09:03:00 Anesthesia Ready 04/07/19 07:49:00 Surgery / Procedure Times Start Time 04/07/19 08:07:00 Stop Time 04/07/19 08:53:00 Last Modified By: Gladys Vidal RN 04/07/19 07:54:51 [facility] IntraOp Case Times Audit 04/07/19 09:05:54 Polyethylene Combiner: [id number] Modifier: [id number] <+> 1 Out Room Time <+> 1 Stop Time <+> 1 Stop Time 04/07/19 08:07:30 Polyethylene Combiner: [id number] Modifier: [id number] <+> 1 Start Time [facility] IntraOp Cautery Entry 1 ESU Identification Cautery Type Monopolar ESU ID Number [id number] ID Type Hospital Number Cautery Settings Cut Setting 1 Coag Setting 30 ESU Grounding Pad Ground Pad Type Adult Grounding Pad Site Left thigh Grounding Pad Gladys Vidal RN Applied By Grounding Pad Site Warm, dry and intact Skin Condition Before Cautery Grounding Pad Site Unchanged Skin Condition After Cautery Last Modified By: Gladys Vidal RN 04/07/19 07:55:04 [facility] IntraOp Communication Entry 1 Communication To Family/Significant other Communication By Gladys Vidal RN Date and Time 04/07/19 08:07:00 Last Modified By: Gladys Vidal RN 04/07/19 08:07:43 [facility] IntraOp Counts Verification Entry 1 Procedure Gastrectomy Sleeve Laparoscopic, Hernia Repair Diaphragmatic Laparoscopic Count Info Count Type Sponge, Sharps, Instrument Counts Verification Baseline/pre-procedure Sequence Counts Performed By Count Performed By CATIE RAMIREZ, (Scrub) Service Member Count Performed By Gladys Vidal RN (RN) Last Modified By: Gladys Vidal RN 04/07/19 07:55:19 [facility] IntraOp Counts Verification Audit 04/07/19 08:20:29 Polyethylene Combiner: [id number] Modifier: [id number] 1 <*> Procedure Gastrectomy Sleeve Laparoscopic [facility] IntraOp Counts Final Entry 1 Procedure Gastrectomy Sleeve Laparoscopic, Hernia Repair Diaphragmatic Laparoscopic Final Count Info Count Type Sponge, Sharps Counts Verification Skin Closure/end of Sequence procedure Count Results Correct, surgeon notified Counts Performed By Count Performed By CATIE RAMIREZ, (Scrub) Service Member Count Performed By Gladys Vidal RN (RN) Last Modified By: Gldays Vidal RN 04/07/19 08:47:25 [facility] IntraOp Counts Final Audit 04/07/19 08:47:25 Polyethylene Combiner: [id number] Modifier: [id number] 1 <*> Procedure Gastrectomy Sleeve Laparoscopic, Hernia Repair Diaphragmatic Laparoscopic 1 <+> Count Results 1 <+> Counts Verification Sequence 04/07/19 08:20:31 Polyethylene Combiner: [id number] Modifier: [id number] 1 <*> Procedure Gastrectomy Sleeve Laparoscopic [facility] IntraOp Cultures and Spec Summary Entry 1 Cultrures and Specimens Specimen Ordered: Yes Test(s) Routine/Path-Lab Requested/Final Disposition Last Modified By: Gladys Vidal RN 04/07/19 08:09:51 [facility] IntraOp Departure from OR Entry 1 Integumentary Assessment Transfer/Handoff Transfer to PACU Phase I Handoff Method Bedside/Face to face Post-op Transport Bed (including Via specialty) Patient Transport Gladys Vidal RN, Accompanied by DENA DEAN CRNA Last Modified By: Gladys Vidal RN 04/07/19 08:20:41 [facility] IntraOp Dressing and Packing Entry 1 Type Dressing Location abdomen Wound Dressing Item 2x2's Applied By CATIE RAMIREZ, Service Member Other Comments 2 X 2 COVADERMS APPLIED TO TROCAR SITES Last Modified By: Gladys Vidal RN 04/07/19 07:55:40 [facility] IntraOp Fire Risk Assessment Entry 1 Fire Info Surgical Site or 0- No Incision Above the Xyphoid Open O2 Source 0- No (Mask or Cannula) Available Ignition 1- Yes (ESU, Laser, Light Source) Fire Risk 1 Assessment Score Fire Score Fire Risk Yes Assessment Complete Fire Risk Gladys Vidal RN Assessment Verified By Fire Risk 04/07/19 08:06:00 Assessment Verified Date/Time Fire Risk Standard Fire Yes Safety Precautions Followed Last Modified By: Gladys Vidal RN 04/07/19 08:10:07 [facility] IntraOp General Case Clinical Specialist 1 Case Information OR OR 03 SJE Case Level 1 Room Verified Yes Wound Class II - Clean-Contaminated Specialty SN General Anesthesia Type General ASA Class 2 Diagnosis Preop Diagnosis OBESITY Postop Same As Preop Yes Postop Diagnosis OBESITY Last Modified By: Gladys Vidal RN 04/07/19 08:10:58 [facility] IntraOp Implant Log Entry 1 Type Implant (Synthetic) Implant Log Implant Type Other Implant REINFORCE STPL SEAMGRD Identification FLEX [id number] Description Implant Quantity 5 Implant Site STOMACH Implant [employer]Med Prdt Identification Rework Operator Name: Implant [id number] Identification Catalog Number Implant Has an Yes Expiration Date Implant Expiration 01/20/22 Date Tissue Implant Last Modified By: Gladys Vidal RN 04/07/19 08:13:59 [facility] IntraOp Implant Log Audit 04/07/19 08:16:56 Polyethylene Combiner: [id number] Modifier: [id number] 1 <*> Implant Identification Description REINFORCE STPL SEAMGRD FLEX [id number] [facility] IntraOp Intraoperative Assessment Entry 1 Handoff Method Bedside/Face to face Valid History / Yes Physical in Chart Preoperative Yes Checklist Reviewed/Evaluated Allergies Reviewed Yes Patient is Latex No Sensitive Isolation Not applicable Precautions Noted Level of WDL Consciousness (WDL = Alert, Oriented to Person, Place, and Time) Skin Assessment Yes Verified Present Upon IVs Arrival to OR Last Modified By: Glayds Vidal RN 04/07/19 08:11:03 [facility] IntraOp Intraoperative Equipment Entry 1 Type Equipment Equipment Equipment Other Intraop Monitoring Electrocardiogram Three lead placement (ECG) Electrode Placement Blood Pressure Non-Invasive BP Device Source Blood Pressure Arm, right upper Location Antiembolic Devices Antiembolic Devices Sequential compression device, knee high Antiembolic Device Bilateral Location Scopes Photo/Video Documentation Last Modified By: Gladys Vidal RN 04/07/19 08:12:51 [facility] IntraOp Medication Admin Entry 1 Medication/Irrigant Anesthetic Cocktail-Loyd [place]rett Administered 04/07/19 08:07:00 Route of TOPICAL Administration Dose Dose 1 Unit of Measure gram Volume QS Administered By DURAN JIMENEZ MD-REYNOLD Procedure Irrigation Last Modified By: Gladys Vidal RN 04/07/19 08:07:22 S[facility] IntraOp Patient Positioning Entry 1 Procedure Gastrectomy Sleeve Laparoscopic, Hernia Repair Diaphragmatic Laparoscopic Body Position Supine Left Arm Position Secured on padded arm board Right Arm Position Secured on padded arm board Left Leg Position Uncrossed, parallel Right Leg Position Uncrossed, parallel Feet Uncrossed Yes Pressure Points Yes Checked Positioning Devices Arm Board, Foot Board, Safety Strap, Thighs, Safety Strap, Arm(s), Pillows Positioned By Gladys Vidal RN, DENA DEAN, LISE, CATIE RAMIREZ, Service Member Position Verified Positioning Yes Verified by Anesthesia Positioning Yes Verified by Surgeon Last Modified By: Gladys Vidal RN 04/07/19 08:11:29 [facility] IntraOp Patient Positioning Audit 04/07/19 08:20:30 Polyethylene Combiner: [id number] Modifier: [id number] 1 <*> Procedure Gastrectomy Sleeve Laparoscopic [facility] IntraOp Sign In Entry 1 Patient, Site, Yes Procedure Identified Surgical Consent Yes Confirmed Relevant Surgical Yes Documents Available Surgical Site N/A Marked by person performing procedure Anesthesia Machine Yes Check Completed Medication Checks Yes Completed Allergies Yes Airway Difficult Yes Airway/Aspiration Risk Difficult Yes Airway/Aspiration Intervention Equipment Available Blood Loss Risk Yes Blood Loss Yes Intervention Equipment Prepared and Ready Blood Identifiers Not applicable Verified Per Policy Hypothermia Risk Yes Warming Measures Yes Taken Last Modified By: Gladys Vidal RN 04/07/19 08:11:36 [facility] Intra Op Sign Out Entry 1 RN Confirmation Surgical Yes Procedure(s) Identified Instrument, Sponge Yes and Sharps Counts Correct/Documented Equipment Problems N/A Documented Specimen Labeled Yes Correctly Urinary Catheter N/A Documented in IView Crowe Patient Yes Recovery Concerns Reviewed with Anesthesia Provider, Surgeon and RN Crowe Patient Yes Management Concerns Reviewed with Anesthesia Provider, Surgeon and RN Safety Checklist Yes Elements Complete? RN Sign Out Gladys Vidal RN Signature RN Sign Out 04/07/19 09:03:00 Signature Date/Time Plan of Care Outcome - Fire Risk OUTCOME STATEMENT: Goal met Patient is free from injury related to surgical fire Plan of Care Outcome - Pt Positioning OUTCOME STATEMENT: Goal met Absence of signs and symptoms of positioning injury. Plan of Care Outcome - Skin Prep OUTCOME STATEMENT: Goal met Intraoperative care is consistent with measures to prevent infection Plan of Care Outcome - Xray/Images OUTCOME STATEMENT: N/A Absence of observable signs or symptoms of radiation injury Plan of Care Outcome - Counts OUTCOME STATEMENT: Goal met Absence of signs and symptoms of injury related to extraneous objects Last Modified By: Gladys Vidal RN 04/07/19 08:11:48 [facility] Intra Op Sign Out Audit 04/07/19 09:11:30 Polyethylene Combiner: [id number] Modifier: [id number] <+> 1 RN Sign Out Signature Date/Time [facility] IntraOp Skin Prep Entry 1 Procedure Gastrectomy Sleeve Laparoscopic, Hernia Repair Diaphragmatic Laparoscopic Prescribed Yes Pre-Surgical Prep Completed Prep Area XIPHOID PROCESS TO PUBIS, BEDSIDE TO BEDSIDE Intraop Prep Integumentary WDL Assessment WDL Prep Agents Chloraprep Prep by Gladys Vidal RN Hair Removal Methods No hair removal performed Last Modified By: Gladys Vidal RN 04/07/19 08:12:12 [facility] IntraOp Skin Prep Audit 04/07/19 08:20:30 Polyethylene Combiner: [id number] Modifier: [id number] 1 <*> Procedure Gastrectomy Sleeve Laparoscopic [facility] IntraOp Surgical Procedures Entry 1 Entry 2 Procedure Gastrectomy Sleeve Hernia Repair Laparoscopic Diaphragmatic Laparoscopic Modifiers Additional LAPAROSCOPIC SLEEVE Procedure GASTRECTOMY Description Primary Procedure Yes No Primary Surgeon DURAN JIMENEZ, DURAN JIMENEZ, ZACH SERRANO Start 04/07/19 08:07:00 04/07/19 08:07:00 Stop 04/07/19 08:53:00 04/07/19 08:53:00 Physician States Cecum Reached Anesthesia Type General General Specialty SN General SN General Wound Class II - Clean-Contaminated I - Clean Last Modified By: Gladys Vidal RN Dobson, Melissa, RN 04/07/19 08:12:20 04/07/19 08:17:57 [facility] IntraOp Surgical Procedures Audit 04/07/19 09:11:14 Polyethylene Combiner: [id number] Modifier: [id number] <+> 1 Stop <+> 2 Stop 04/07/19 08:17:57 Polyethylene Combiner: [id number] Modifier: [id number] <+> 2 Procedure <+> 2 Primary Procedure <+> 2 Primary Surgeon <+> 2 Specialty <+> 2 Start <+> 2 Wound Class <+> 2 Anesthesia Type [facility] IntraOp Temp Regulation Devices Entry 1 Temp Regulation Temperature Warm blankets Regulation Device Temperature Lower body, Upper body Regulation Site Temperature DIANNE, DENA, LISE Regulation Device Applied by Last Modified By: Gladys Vidal RN 04/07/19 08:21:15 TED IntraOp Time Out Entry 1 Procedure to be Gastrectomy Sleeve Performed Laparoscopic, Hernia Repair Diaphragmatic Laparoscopic Time Out Time Out Pause Time 04/07/19 08:06:00 All activity Yes suspended (unless life threatening emergency) Team Verbally Correct patient Confirms Information identity, Consent form is present and accurate, Agreement on the procedure to be done, Correct patient position, Relevant images/results properly labeled/appropriately displayed, Confirm antibiotics have been administered, Confirm the skin prep has dried, Confirm prosthesis/implant/devic e is present, Performed in location of procedure after prepped/draped Antibiotic Yes Prophylaxis Administered Or In Progress Within the Last 60 Minutes Beta Filiberto N/A Administered Venous Yes Thromboembolism Prophylaxis Required Anticipated Critical Events Surgeon None expected Anesthesia Provider None expected Nursing Assures Sterility of instruments, Equipment concerns or issues, Implant Availability Essential Imaging Yes Labeled and Displayed Last Modified By: Gladys Vidal RN 04/07/19 08:20:30 TED IntraOp Time Out Audit 04/07/19 08:20:30 Polyethylene Combiner: [id number] Modifier: [id number] 1 <*> Procedure to be Performed Gastrectomy Sleeve Laparoscopic Case Comments <None> Finalized By: Gladys Vidal RN Document Signatures Signed By: Galdys Vidal RN 04/07/19 09:12 Electronically signed by Cy [facility] Conversion Movable Bulkhead Installer Cerner at 07/24/2022 7:22 PM CDT documented in this encounter Plan of Treatment Not on file documented as of this encounter Visit Diagnoses Not on filedocumented in this encounter
--- OUTSIDE RECORDS SUMMARY | 2025-01-30 13:54 | XMS_ITS | Encounter Summary ---
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
--- OUTSIDE RECORDS SUMMARY | 2025-01-30 13:55 | XMS_ITS | Encounter Summary ---
Author Organization [employer] ([place], [place], [place], [place]) Address [address] [place] [address] Care Team Providers Care Leasing Sales Consultant Name Role Phone Unavailable Primary Care Provider Unavailabl e Encounter Details Date Type Department Care Team (Late st Contact Info) Description 02/28/2019 Transcribed Document [facility] [place] Family Medicine [address] [place] [address] ProviderNancy MD [address] [place] [address] Social History Tobacco Use Types [...] Cerner Conversion Note - Historical ProviderMD - 02/28/2019 12:54 PM OUTREACH TEAM MEMBER [facility] IntraOp Summary Primary Physician: Finalized Date/Time: 02/28/19 12:57:26 Pt. Name: NICHOLAS MELVIN LA NENA /Sex: 1980 Female Med Rec #: [id number] Physician: BIJU KINNEY MD-REYNOLD Financial #: [id number] Pt. Type: O Room/Bed: [facility] Admit/Disch: 02/28/19 11:11:00 - Institution: [facility] - Case Attendance Entry 1 Entry 2 Entry 3 Case Attendee BIJU KINNEY Bicknell, Ashley, RN BIJU HERNANDEZ MD-REYNOLD -ANS Role Performed Surgeon/Proceduralist, Email Marketing Coordinator, First Anesthesiologist Second Time In 02/28/19 12:51:00 02/28/19 12:51:00 02/28/19 12:51:00 Time Out 02/28/19 12:58:00 02/28/19 12:58:00 02/28/19 12:58:00 Procedure Esophagogastroduodenosco Esophagogastroduodenosco Esophagogastroduodenosco py, Gastric Biopsy py, Gastric Biopsy py, Gastric Biopsy Other Attendee Superficial Wound Closed By: Last Modified By: Cielo Harvey RN Bicknell, Ashley, Cielo Valdivia RN 02/28/19 12:56:20 02/28/19 12:56:20 02/28/19 12:56:20 Entry 4 Case Attendee CEM KATE Performed Scrub, First Time In 02/28/19 12:51:00 Time Out 02/28/19 12:58:00 Procedure Esophagogastroduodenosco py, Gastric Biopsy Other Attendee Superficial Wound Closed By: Last Modified By: Cielo Harvey RN 02/28/19 12:56:20 [facility] - Case Attendance Audit 02/28/19 12:56:20 Securities Research Analyst: BICKNEA Modifier: BICKNEA 1 <+> Time Out 1 <*> Procedure Esophagogastroduodenoscopy, Gastric Biopsy 2 <+> Time Out 2 <*> Procedure Esophagogastroduodenoscopy, Gastric Biopsy 3 <+> Time Out 3 <*> Procedure Esophagogastroduodenoscopy, Gastric Biopsy 4 <+> Time Out 4 <*> Procedure Esophagogastroduodenoscopy, Gastric Biopsy 02/28/19 12:54:01 Securities Research Analyst: BICKNEA Modifier: BICKNEA 1 <*> Procedure Esophagogastroduodenoscopy 2 <*> Procedure Esophagogastroduodenoscopy 3 <*> Procedure Esophagogastroduodenoscopy 4 <*> Procedure Esophagogastroduodenoscopy 02/28/19 12:52:10 Securities Research Analyst: BICKNEA Modifier: BICKNEA <+> 1 Procedure 2 <*> Procedure Esophagogastroduodenoscopy 3 <*> Procedure Esophagogastroduodenoscopy 4 <*> Procedure Esophagogastroduodenoscopy 02/28/19 12:52:02 Securities Research Analyst: BICKNEA Modifier: BICKNEA Entry 1 was deleted. Higher numbered entries shifted one position to fill the gap. <-> 1 Case Attendee ROXANNA CABRAL MD-REYNOLD <-> 1 Role Performed Surgeon/Proceduralist, First <-> 1 Time In 02/28/19 12:51:00 2 <*> Case Attendee BIJU KINNEY MD-REYNOLD 2 <*> Role Performed Surgeon/Proceduralist, Second 2 <*> Time In 02/28/19 12:51:00 2 <+> Procedure 3 <*> Case Attendee Cielo Harvey RN 3 <*> Role Performed Email Marketing Coordinator, First 3 <*> Time In 02/28/19 12:51:00 3 <*> Procedure Esophagogastroduodenoscopy 4 <*> Case Attendee BIJU HERNANDEZ MD-ANS 4 <*> Role Performed Anesthesiologist 4 <*> Time In 02/28/19 12:51:00 4 <*> Procedure Esophagogastroduodenoscopy [facility] - Case Times Entry 1 Patient In Room Time 02/28/19 12:51:00 Out Room Time 02/28/19 12:58:00 Anesthesia Start Time 02/28/19 12:51:00 Stop Time 02/28/19 12:56:00 Anesthesia Ready 02/28/19 12:54:00 Surgery / Procedure Times Start Time 02/28/19 12:54:00 Stop Time 02/28/19 12:56:00 Last Modified By: Cielo Harvey RN 02/28/19 12:56:16 [facility] - Case Times Audit 02/28/19 12:56:16 Securities Research Analyst: BICKNEA Modifier: BICKNEA <+> 1 Out Room Time <+> 1 Stop Time <+> 1 Stop Time 02/28/19 12:54:57 Securities Research Analyst: BICKNEA Modifier: BICKNEA <+> 1 Start Time <+> 1 Anesthesia Ready [facility] - Cultures and Spec Summary Entry 1 Cultrures and Specimens Specimen Ordered: Yes Test(s) Routine/Path-Lab Requested/Final Disposition Last Modified By: Cielo Harvey RN 02/28/19 12:54:28 General Comments: thierry test [facility] - Delays Entry 1 Delay Reason Other Duration 0 Minute(s) Comment NO DELAY Last Modified By: Cielo Harvey RN 02/28/19 12:51:38 [facility] - Departure from OR Entry 1 Integumentary Assessment Integumentary WDL Assessment WDL Transfer/Handoff Transfer to PACU Phase I Handoff Reported to ATA TURCIOS RN Post-op Transport Stretcher/Gurney Via Patient Transport Cielo Harvey RN, Accompanied by BIJU HERNANDEZ MD-ANS Last Modified By: Cielo Harvey RN 02/28/19 12:51:55 [facility] - Endoscopy Details Entry 1 Abdomen Procedure Soft, Non-Tender Assessment Procedure Abdomen 02/28/19 12:52:00 Assessment D/T Radio Frequency Ablation Last Modified By: Cielo Harvey RN 02/28/19 12:52:07 [facility] - Fire Risk Assessment Entry 1 Fire Info Surgical Site or 1- Yes Incision Above the Xyphoid Open O2 Source 1- Yes (Mask or Cannula) Available Ignition 1- Yes (ESU, Laser, Light Source) Fire Risk 3 Assessment Score Fire Score Fire Risk Yes Assessment Complete Fire Risk Cielo Harvey RN Assessment Verified By Fire Risk 02/28/19 12:52:00 Assessment Verified Date/Time Fire Risk High Risk Protocol Yes Implemented Standard Fire Yes Safety Precautions Followed Last Modified By: Cielo Harvey RN 02/28/19 12:52:13 [facility] - General Case Outsole Splicer 1 Case Information OR Endo 03 [facility] Case Level 1 Room Verified Yes Wound Class II - Clean-Contaminated Specialty SN General Anesthesia Type MAC ASA Class 2 Diagnosis Preop Diagnosis K21.9 bariatric screening Postop Same As Preop No Postop Diagnosis gastritis Last Modified By: Cielo Harvey RN 02/28/19 12:56:10 [facility] - General Case Data Audit 02/28/19 12:56:10 Securities Research Analyst: [email or web address] Modifier: BICKNEA <+> 1 Postop Diagnosis [facility] - Intraoperative Assessment Entry 1 Valid History / Yes Physical in Chart Preoperative Yes Checklist Reviewed/Evaluated Allergies Reviewed Yes Patient is Latex No Sensitive Level of WDL Consciousness (WDL = Alert, Oriented to Person, Place, and Time) Present Upon IVs, ECG monitored Arrival to OR Last Modified By: Cielo Harvey RN 02/28/19 12:52:35 [facility] - Intraoperative Equipment Entry 1 Type Scope Equipment Intraop Monitoring Electrocardiogram Three lead placement (ECG) Electrode Placement Blood Pressure Arm, left upper Location Pulse Oximeter Hand, right Probe Site Antiembolic Devices Scopes Flexible Endoscopes Gastroscope Used Scope Serial [id number] Number/Identificatio n Number Photo/Video Documentation Photo Yes Video No Last Modified By: Cielo Harvey RN 02/28/19 12:52:46 [facility] - Patient Positioning Entry 1 Procedure Esophagogastroduodenosco py, Gastric Biopsy Body Position Lateral, right side up Left Arm Position Resting at side Right Arm Position Resting at side Left Leg Position Other Right Leg Position Other Position Comments Right leg over left leg uncrossed Feet Uncrossed Yes Pressure Points Yes Checked Positioned By Cielo Harvey RN, BIJU HERNANDEZ MD-ANS Position Verified Positioning Yes Verified by Anesthesia Positioning Yes Verified by Surgeon Last Modified By: Cielo Harvey RN 02/28/19 12:54:02 [facility] - Patient Positioning Audit 02/28/19 12:54:02 Securities Research Analyst: MYRNA Modifier: MYRNA 1 <*> Procedure Esophagogastroduodenoscopy [facility] - Sign In Entry 1 Patient, Site, Yes Procedure Identified Surgical Consent Yes Confirmed Relevant Surgical Yes Documents Available Surgical Site N/A Marked by person performing procedure Allergies Yes Airway Hypothermia Risk No Warming Measures No Taken Last Modified By: Cielo Harvey RN 02/28/19 12:53:13 [facility] - Sign Out Entry 1 RN Confirmation Surgical Yes Procedure(s) Identified Instrument, Sponge N/A and Sharps Counts Correct/Documented Equipment Problems N/A Documented Specimen Labeled Yes Correctly Urinary Catheter N/A Documented in IView Safety Checklist Yes Elements Complete? RN Sign Out Cielo Harvey RN Signature RN Sign Out 02/28/19 12:58:00 Signature Date/Time Plan of Care Outcome - [...] of Care Outcome - Counts OUTCOME STATEMENT: N/A Absence of signs and symptoms of injury related to extraneous objects Last Modified By: Cielo Harvey RN 02/28/19 12:56:33 [facility] - Sign Out Audit 02/28/19 12:56:33 Securities Research Analyst: MYRNA Modifier: BICKNEA 1 <*> RN Sign Out Signature Date/Time 02/28/19 12:56:00 [facility] - Surgical Procedures Entry 1 Entry 2 Procedure Esophagogastroduodenosco Gastric Biopsy py Modifiers Additional Procedure Description Primary Procedure Yes No Primary Surgeon BIJU KINNEY, BIJU KINNEY MD-REYNOLD TEAGUE-REYNOLD Start 02/28/19 12:54:00 02/28/19 12:54:00 Stop 02/28/19 12:56:00 02/28/19 12:56:00 Physician States Cecum Reached Anesthesia Type MAC MAC Specialty SN General SN General Wound Class II - Clean-Contaminated II - Clean-Contaminated Last Modified By: Cielo Harvey RN Bicknell, Ashley, RN 02/28/19 12:56:23 02/28/19 12:56:23 [facility] - Surgical Procedures Audit 02/28/19 12:56:23 Securities Research Analyst: MICHELLEEA Modifier: BICKNEA <+> 1 Start <+> 1 Stop <+> 2 Start <+> 2 Stop 02/28/19 12:53:56 Securities Research Analyst: [email or web address] Modifier: BICKNEA <+> 2 Procedure <+> 2 Primary Procedure <+> 2 Primary Surgeon <+> 2 Specialty <+> 2 Wound Class <+> 2 Anesthesia Type 02/28/19 12:53:35 Securities Research Analyst: MICHELLEEA Modifier: BICKNEA 1 <*> Procedure Esophagogastroduodenoscopy 1 <-> Additional Procedure Description W/BX E End[facility] - Time Out Entry 1 Procedure to be Esophagogastroduodenosco Performed py, Gastric Biopsy Time Out Time Out Pause Time 02/28/19 12:53:00 All activity Yes suspended (unless life threatening emergency) Team Verbally Correct patient Confirms Information identity, Correct side and site are marked, Consent form is present and accurate, Agreement on the procedure to be done, Correct patient position, Relevant images/results properly labeled/appropriately displayed Antibiotic N/A Prophylaxis Administered Or In Progress Within the Last 60 Minutes Beta Filiberto N/A Administered Venous N/A Thromboembolism Prophylaxis Required Anticipated Critical Events Surgeon None expected Last Modified By: Cielo Harvey RN 02/28/19 12:54:03 [facility] - Time Out Audit 02/28/19 12:54:03 Securities Research Analyst: MYRNA Modifier: MYRNA 1 <*> Procedure to be Performed Esophagogastroduodenoscopy Case Comments <None> Finalized By: Cielo Harvey, RN Document Signatures Signed By: Cielo Harvey RN 02/28/19 12:57 Electronically signed by [facility] Conversion Oil Pump Station Operator Chief Cerner at 07/24/2022 7:16 PM CDT documented in this encounter Plan of Treatment Not on file documented as of this encounter Visit Diagnoses Not on filedocumented in this encounter
--- OUTSIDE RECORDS SUMMARY | 2025-01-30 13:55 | XMS_ITS | Encounter Summary ---
Author Organization [employer] ([place], [place], [place], [place]) Address [address] [place] [address] Care Team Providers Care Personnel Security Assistant Name Role Phone Unavailable Primary Care Provider Unavailabl e Encounter Details Date Type Department Care Team (Late st Contact Info) Description 04/08/2019 Transcribed Document [facility] [place] Family Medicine [address] [place] [address] ProviderNancy MD [address] [place] [address] Social History Tobacco Use Types [...] Conversion Note - Nancy Bal MD - 04/08/2019 3:05 PM GALVANIZER ZINC Patient Education Materials Follows: Dr. Mateo Barrera, Dr. Harshal Harp, Dr. Doni Givens, L[facility] - Office - Physician Exchange Discharge Instructions Use your patient handbook! DIET ?? Staying hydrated is your main goal! Be sure to drink at least 64 ounces of fluid/water every day. ?? Remember the importance of hot liquids at least twice a day to reduce mucus build up and nausea. ?? Begin using your protein supplements as soon as you get home. Work up to at least 60-80 grams of protein from your supplements. That's about 3-4 supplements a day. ?? You may start your soft, high protein diet only when you are drinking 64 oz of fluid and getting close to your 60 grams of protein from your supplements. ?? Stick with only the foods in phase three of your handbook. These foods are soft, moist and high in protein. Aim for about 3 Tbsp or 1.5 oz per meal. Remember no drinking with food or the hour after. ?? Use the fluid and protein log in your patient handbook to track your intake. ACTIVITY ?? No lifting over 20 pounds within two weeks after surgery, or until the doctor recommends it. ?? No water exercise for two weeks. ?? Do not sit or stand for long periods of time. When you do sit, change positions frequently. ?? Do not drive until 1 week after surgery and until you are off all pain medication. ?? You may resume sexual relations when comfortable. ?? Continue to use the spirometer (breathing exercise) that you brought home at least 4 times a day for the first week. ?? Return to work when you feel capable. ?? Begin to walk 30 minutes each day. At first you may need to take two or three 10 to 15 minute walks. Gradually increase the distance you walk as you tolerate. MEDICINES ?? Take your medicines as we discussed at discharge. There may be some changes from what you were on before surgery. Fill prescriptions given at hospital and begin taking the omeprazole (or equivalent) daily. ?? Post-op vitamins will begin after your post-op appointment. ?? Take a dose of Milk of Magnesia each day that you are taking pain medication or until you have normal bowel movement. DIABETES ?? If you are diabetic, check your glucose. Call the office if it is greater than 200 more than 3 times in 24-48 hours. WOUND CARE ?? You will be sent home with bandages over your incisions. You should remove all the bandages and shower over your wounds using antibacterial soap, such as Dial, the day after you return home. Do not re-cover your gabe. Pat dry after shower with a clean towel. If you have some wound drainage, it is still fine to shower. You may use a dressing or sanitary napkin to recover your drain site if needed. ?? Please notify [facility] of any drainage, type and amount, change in well-being: fever, increasing pain, inability to tolerate fluids or liquids. REMEMBER As you begin to use your body fat as fuel, you will become ketotic and therefore a bit nauseated. It is important that you continue your protein, even when you are not hungry or feel nauseated. WHEN TO CALL US ? If you have abdominal pain worse than you ever had in the hospital. ?? If you have a temperature that is 101 degrees or more. ?? If you have unusual swelling in one or both legs. ?? If you vomit and it looks different from what you just ate / drank. ?? If you have increased redness or drainage from incision sites. ?? If you have any other symptoms that concern you. Use your Patient Handbook! Many topics including nausea, vomiting, diarrhea, constipation, sleeplessness, headaches, and more are covered within this book. If you do not find an answer in your book, please call the Center at [phone]. documented in this encounter Plan of Treatment Not on file documented as of this encounter Visit Diagnoses Not on filedocumented in this encounter
--- OUTSIDE RECORDS SUMMARY | 2025-01-30 13:55 | XMS_ITS | Encounter Summary ---
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 Pain is controlled, ambulating in the halls. Intake & Output Intake & Output Totals Last 24 Hours (7a-7a) Intake (24 Events) Medications (513 mL) Oral Intake (180 mL) Surgical Services Intake (1300 mL) Output (4 Events) Urine Voided (Volume) (900 mL) Input Total: 1993 mL Output Total: 900 mL Balance: 1093 mL Vital Signs T: 36.9 ??C TMIN: 36.4 ??C TMAX: 37.1 ??C HR: 50(Monitored) RR: 18 BP: 156/77 SpO2: 94% HT: 161.93 cm WT: 114.09 kg BMI: 43.5 Physical Exam Abdomen is soft, ND, mildly tender to palpation. Dressings C/D/I VTE Risk Total Score VTE Prophylaxis - Surgical Enoxaparin 40 mg, SubCutaneous, Inj, [id number], Routine, Start 04/08/19 9:00:00 EST (DURAN JIMENEZ MD-SUR) Sequential Compression Device Start: 04/07/19 9:49:00 EST, Bilateral, Length: Knee High, Replace when in bed, Continuous Order (DURAN JIMENEZ MD-SUR) Sequential Compression Device Start: 04/07/19 9:49:00 EST, Bilateral, Length: Knee High, Remove when ambulating, Continuous Order (DURAN JIMENEZ MD-SUR) Assessment/Plan POD#1 S/P Lap Gastric sleeve will watch nausea if improved, likely home later today. Morbid (severe) obesity due to excess calories E66.01, Morbid (severe) obesity due to excess calories E66.01, Morbid obesity E66.01, Morbid obesity E66.01 Medications Inpatient Benadryl, 12.5 mg= 0.25 mL, IV Push, Q6H, PRN cloNIDine 80 mcg + ropivacaine 0.5% injectable solution 25 mL + Xylocaine HCl with EPINEPHrine 1%-1 Dilaudid, 0.5 mg= 0.5 mL, IV Push, Q3H, PRN ketorolac, 30 mg= 1 mL, IV Push, Q6H, PRN Lovenox, 40 mg= 0.4 mL, SubCutaneous, [id number] Mylicon, 80 mg= 1 Tab, Oral, Q4H, PRN NaCl 0.9% bolus, 500 mL, IV Piggyback, 1-Time, PRN [place] 7.5 mg-325 mg oral tablet, 2 Tab, Oral, Q4H, PRN Normosol-R 1,000 mL, 1000 mL, IntraVENous Pepcid, 20 mg= 2 mL, IV Push, Q12H promethazine, 12.5 mg= 0.5 mL, IV Push, Q6H, PRN simethicone, 80 mg= 1.2 mL, Oral, Q6H, PRN Sodium Chloride 0.45% intravenous solution 1,000 mL, 1000 mL, IntraVENous Tylenol, 650 mg= 1 Supp, Rectal, Q6H, PRN Zofran, 4 mg= 2 mL, IV Push, Q4H, PRN Home No active home medications Labs Results APR 08 03:16 137 103 L 6 / 99 4.7 27 0.66 \ APR 08 03:16 \ 12.1 / H 14.9 271 / 37.2 \ Anion Gap: 12 Calcium Level: 8.3 mg/dL Low Imaging Results (Last 24 Hours) No Radiology Results Found Problem List/Past Medical History Ongoing At risk for sleep apnea Historical No qualifying data Procedure/Surgical History Cholecystectomy, EGD. Allergies penicillin (Rash) Electronically signed by Sadi Benoit Conversion Heat And Frost Insulator Helper Cerner at 07/24/2022 7:23 PM CDT documented in this encounter Plan of Treatment Not on file documented as of this encounter Visit Diagnoses Not on filedocumented in this encounter
--- OUTSIDE RECORDS SUMMARY | 2025-01-30 13:55 | XMS_ITS | Encounter Summary ---
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 Monitored anesthesia care, or sedation, is one type of anesthesia. Your anesthesia specialist may recommend sedation if you will be having a procedure that does not require you to be unconscious, such as: ??? Cataract surgery. ??? A dental procedure. ??? A biopsy. ??? A colonoscopy. During the procedure, you may receive a medicine to help you relax (sedative). There are three levels of sedation: ??? Mild sedation. At this level, you may feel awake and relaxed. You will be able to follow directions. ??? Moderate sedation. At this level, you will be sleepy. You may not remember the procedure. ??? Deep sedation. At this level, you will be asleep. You will not remember the procedure. The more medicine you are given, the deeper your level of sedation will be. Depending on how you respond to the procedure, the anesthesia specialist may change your level of sedation or the type of anesthesia to fit your needs. An anesthesia specialist will monitor you closely during the procedure. Let your health care provider know about: ??? Any allergies you have. ??? All medicines you are taking, including vitamins, herbs, eye drops, creams, and [id number] medicines. ??? Any use of steroids (by mouth or as a cream). ??? Any problems you or family members have had with sedatives and anesthetic medicines. ??? Any blood disorders you have. ??? Any surgeries you have had. ??? Any medical conditions you have, such as sleep apnea. ??? Whether you are or may be . ??? Any use of cigarettes, alcohol, or street drugs. What are the risks? Generally, this is a safe procedure. However, problems may occur, including: ??? Getting too much medicine (oversedation). ??? Nausea. ??? Allergic reaction to medicines. ??? Trouble breathing. If this happens, a breathing tube may be used to help with breathing. It will be removed when you are awake and breathing on your own. ??? Heart trouble. ??? Lung trouble. Before the procedure Staying hydrated Follow instructions from your health care provider about hydration, which may include: ??? Up to 2 hours before the procedure ? you may continue to drink clear liquids, such as water, clear fruit juice, black coffee, and plain tea. Eating and drinking restrictions Follow instructions from your health care provider about eating and drinking, which may include: ??? 8 hours before the procedure ? stop eating heavy meals or foods such as meat, fried foods, or fatty foods. ??? 6 hours before the procedure ? stop eating light meals or foods, such as toast or cereal. ??? 6 hours before the procedure ? stop drinking milk or drinks that contain milk. ??? 2 hours before the procedure ? stop drinking clear liquids. Medicines Ask your health care provider about: ??? Changing or stopping your regular medicines. This is especially important if you are taking diabetes medicines or blood thinners. ??? Taking medicines such as aspirin and ibuprofen. These medicines can thin your blood. Do not take these medicines before your procedure if your health care provider instructs you not to. Tests and exams ??? You will have a physical exam. ??? You may have blood tests done to show: ? How well your kidneys and liver are working. ? How well your blood can clot. General instructions ??? Plan to have someone take you home from the hospital or clinic. ??? If you will be going home right after the procedure, plan to have someone with you for 24 hours. What happens during the procedure? Your blood pressure, heart rate, breathing, level of pain and overall condition will be monitored. ??? An IV tube will be inserted into one of your veins. ??? Your anesthesia specialist will give you medicines as needed to keep you comfortable during the procedure. This may mean changing the level of sedation. ??? The procedure will be performed. After the procedure ??? Your blood pressure, heart rate, breathing rate, and blood oxygen level will be monitored until the medicines you were given have worn off. ??? Do not drive for 24 hours if you received a sedative. ??? You may: ? Feel sleepy, clumsy, or nauseous. ? Feel forgetful about what happened after the procedure. ? Have a sore throat if you had a breathing tube during the procedure. ? Vomit. This information is not intended to replace advice given to you by your health care provider. Make sure you discuss any questions you have with your health care provider. Document Released: 12/20/2005 Document Revised: 09/01/2016 Document Reviewed: 07/16/2016 [employer] [facility] [place] Interactive Patient Education ? 2019 [employer] Gastritis, Adult Gastritis is inflammation of the stomach. There are two kinds of gastritis: ??? Acute gastritis. This kind develops suddenly. ??? Chronic gastritis. This kind lasts for a long time. Gastritis happens when the lining of the stomach becomes weak or gets damaged. Without treatment, gastritis can lead to stomach bleeding and ulcers. What are the causes? This condition may be caused by: ??? An infection. ??? Drinking too much alcohol. ??? Certain medicines. ??? Having too much acid in the stomach. ??? A disease of the intestines or stomach. ??? Stress. What are the signs or symptoms? Symptoms of this condition include: ??? Pain or a burning in the upper abdomen. ??? Nausea. ??? Vomiting. ??? An uncomfortable feeling of fullness after eating. In some cases, there are no symptoms. How is this diagnosed? This condition may be diagnosed with: ??? A description of your symptoms. ??? A physical exam. ??? Tests. These can include: ? Blood tests. ? Stool tests. ? A test in which a thin, flexible instrument with a light and camera on the end is passed down the esophagus and into the stomach (upper endoscopy). ? A test in which a sample of tissue is taken for testing (biopsy). How is this treated? This condition may be treated with medicines. If the condition is caused by a bacterial infection, you may be given antibiotic medicines. If it is caused by too much acid in the stomach, you may get medicines called H2 blockers, proton pump inhibitors, or antacids. Treatment may also involve stopping the use of certain medicines, such as aspirin, ibuprofen, or other nonsteroidal anti-inflammatory drugs (NSAIDs). Follow these instructions at home: ??? Take ifgg-xox-mjpojop and prescription medicines only as told by your health care provider. ??? If you were prescribed an antibiotic, take it as told by your health care provider. Do not stop taking the antibiotic even if you start to feel better. ??? Drink enough fluid to keep your urine pale yellow. ??? Eat small, frequent meals instead of large meals. ??? Avoid foods and drinks that make your symptoms worse. Contact a health care provider if: ??? Your symptoms get worse. ??? Your symptoms return after treatment. Get help right away if: ??? You vomit blood or material that looks like coffee grounds. ??? You have black or dark red stools. ??? You are unable to keep fluids down. ??? Your abdominal pain gets worse. ??? You have a fever. ??? You do not feel better after 1 week. Summary ??? Gastritis is inflammation of the stomach that happens when the lining of the stomach becomes weak or gets damaged. ??? This condition is diagnosed with a medical history, a physical exam, or tests. ??? This condition may be treated with medicines to treat infection or medicines to reduce the amount of acid in your stomach. ??? If your condition is caused by alcohol, or by irritation from medicines that you are taking, you may be told to stop using alcohol or to stop taking those medicines. This information is not intended to replace advice given to you by your health care provider. Make sure you discuss any questions you have with your health care provider. Document Released: 03/20/2002 Document Revised: 11/06/2017 Document Reviewed: 12/18/2015 [employer] Patient Education ? 2019 [employer] Esophagogastroduodenoscopy, Care After Refer to this sheet in the next few weeks. These instructions provide you with information about caring for yourself after your procedure. Your health care provider may also give you more specific instructions. Your treatment has been planned according to current medical practices, but problems sometimes occur. Call your health care provider if you have any problems or questions after your procedure. What can I expect after the procedure? After the procedure, it is common to have: ??? A sore throat. ??? Nausea. ??? Bloating. ??? Dizziness. ??? Fatigue. Follow these instructions at home: ??? Do not eat or drink anything until the numbing medicine (local anesthetic) has worn off and your gag reflex has returned. You will know that the local anesthetic has worn off when you can swallow comfortably. ??? Do not drive for 24 hours if you received a medicine to help you relax (sedative). ??? If your health care provider took a tissue sample for testing during the procedure, make sure to get your test results. This is your responsibility. Ask your health care provider or the department performing the test when your results will be ready. ??? Keep all follow-up visits as told by your health care provider. This is important. Contact a health care provider if: ??? You cannot stop coughing. ??? You are not urinating. ??? You are urinating less than usual. Get help right away if: ??? You have trouble swallowing. ??? You cannot eat or drink. ??? You have throat or chest pain that gets worse. ??? You are dizzy or light-headed. ??? You faint. ??? You have nausea or vomiting. ??? You have chills. ??? You have a fever. ??? You have severe abdominal pain. ??? You have black, tarry, or bloody stools. This information is not intended to replace advice given to you by your health care provider. Make sure you discuss any questions you have with your health care provider. Document Released: 03/12/2013 Document Revised: 08/31/2016 Document Reviewed: 02/17/2016 [employer] [facility] [place] Interactive Patient Education ? 2019 [employer] documented in this encounter Plan of Treatment Not on file documented as of this encounter Visit Diagnoses Not on filedocumented in this encounter
--- OUTSIDE RECORDS SUMMARY | 2025-01-30 13:55 | XMS_ITS | Encounter Summary ---
Author Organization [employer] 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[employer] [place] [address] NICHOLAS MELVIN :1980 Visit Time:04/07/2019 Your Visit Summary Your Care Team Admitting Physician - DURAN JIMENEZ MD-SUR Attending Physician - DURAN JIMENEZ MD-SUR Primary Care Physician - OLGA, NOT LISTED Referring Physician - DURAN JIMENEZ MD-SUR Your Diagnosis Morbid (severe) obesity due to excess calories, Morbid (severe) obesity due to excess calories, Morbid obesity, Morbid obesity These Are Your Goals To go home an start new life - Met Discharge Vitals Temperature 36.8 ??C Heart Rate (Monitored) 51 Respiratory Rate 16 Blood Pressure 149/79 What to do next Instructions From Your Care Team Discharge Follow Up Instructions: followup one week from [id number] Follow Up Instructions: call office on sunday for followup appointment Activity: Discharge Activity: Activity as tolerated Diet: Warm liquids in the morning. May progress to full liquids and soft high protein foods as tolerated (Cottage cheese, chicken salad, eggs, etc). Make sure foods are wet . Drink 64 oz of fluids per day. Refer to Nolberto-handbook., Discharge Diet: Other (see Special Instructions) Follow-Up Appointments Follow Up with DURAN JIMENEZ MD-REYNOLD When 04/18/2019 09:00 AM EST Comments Appointment has been made Where: [address] Bariatric Office - PHONE: [place] [address]- [phone] Follow Up with DURAN JIMENEZ When Within 1 to 2 weeks Comments Call for follow up appointment Where: [address] Bariatric Office - PHONE: [place] [address]- [phone] Business (1) Medications Take your medications faithfully. Do NOT skip medication. Do NOT stop taking medications without the direction of a physician. Carry a list of your medications with you at all times, and take this medication list with you to your first follow up visit. Report any side effects. Avoid herbal remedies unless discussed with your physician. As part of your treatment plan, your physician may have prescribed a limited course of a controlled substance. This medication may be given to help people with moderate or severe pain or for other medical conditions, but there are risks involved with treatment. Common side effects may include nausea, constipation, drowsiness, sweating, itching, dry mouth, and rash. More serious side effects may include cognitive and motor impairment, like problems with thinking, concentrating, alertness, and movement (e.g. slowed reflexes), and driving and operating heavy machinery can be dangerous. It is important for you to talk to your physician if you have these side effects or questions. These controlled substances can produce physical dependence and be habit-forming if taken for an extended period of time, which means that the body has gotten used to them and may experience withdrawal symptoms if they are abruptly stopped. Withdrawal symptoms can include runny nose, sweating, goose bumps, diarrhea, abdominal cramping, rapid heartbeat, difficulty sleeping, and nervousness. Please dispose of unused and medications per your retail pharmacy guidance. Allergies penicillin (Rash) Immunizations This Visit No Immunizations Found Education Materials Dr. Mateo Barrera, Dr. Harshal Jimenez, Dr. Doni Givens PA-C ??? Office ??? Physician Exchange Discharge Instructions Use your patient handbook! DIET ??? Staying hydrated is your main goal! Be sure to drink at least 64 ounces of fluid/water every day. ??? Remember the importance of hot liquids at least twice a day to reduce mucus build up and nausea. ??? Begin using your protein supplements as soon as you get home. Work up to at least 60-80 grams of protein from your supplements. That???s about 3-4 supplements a day. ??? You may start your soft, high protein diet only when you are drinking 64 oz of fluid and getting close to your 60 grams of protein from your supplements. ??? Stick with only the foods in phase three of your handbook. These foods are soft, moist and high in protein. Aim for about 3 Tbsp or 1.5 oz per meal. Remember no drinking with food or the hour after. ??? Use the fluid and protein log in your patient handbook to track your intake. ACTIVITY ??? No lifting over 20 pounds within two weeks after surgery, or until the doctor recommends it. ??? No water exercise for two weeks. ??? Do not sit or stand for long periods of time. When you do sit, change positions frequently. ??? Do not drive until 1 week after surgery and until you are off all pain medication. ??? You may resume sexual relations when comfortable. ??? Continue to use the spirometer (breathing exercise) that you brought home at least 4 times a day for the first week. ??? Return to work when you feel capable. ??? Begin to walk 30 minutes each day. At first you may need to take two or three 10 to 15 minute walks. Gradually increase the distance you walk as you tolerate. MEDICINES ??? Take your medicines as we discussed at discharge. There may be some changes from what you were on before surgery. Fill prescriptions given at hospital and begin taking the omeprazole (or equivalent) daily. ??? Post???op vitamins will begin after your post-op appointment. ??? Take a dose of Milk of Magnesia each day that you are taking pain medication or until you have normal bowel movement. DIABETES ??? If you are diabetic, check your glucose. Call the office if it is greater than 200 more than 3 times in 24-48 hours. WOUND CARE ??? You will be sent home with bandages [...] to recover your drain site if needed. ??? Please notify [facility] of any drainage, type [...] than you ever had in the hospital. ??? If you have a temperature that is 101 degrees or more. ??? If you have unusual swelling in one or both legs. ??? If you vomit and it looks different from what you just ate / drank. ??? If you have increased redness or drainage from incision sites. ??? If you have any other symptoms that concern you. Use your Patient Handbook! Many topics including nausea, vomiting, diarrhea, constipation, sleeplessness, headaches, and more are covered within this book. If you do not find an answer in your book, please call the Center at [phone]. ondansetron (oral) (on FARRUKH andria) Hui Ames Zuplenz What is the most important information I should know about ondansetron? You should not use ondansetron if you are also using apomorphine (Apokyn). What is ondansetron? Ondansetron blocks the actions of chemicals in the body that can trigger nausea and vomiting. Ondansetron is used to prevent nausea and vomiting that may be caused by surgery, cancer chemotherapy, or radiation treatment. Ondansetron may be used for purposes not listed in this medication guide. What should I discuss with my health care provider before taking ondansetron? You should not use ondansetron if: ?? you are also using apomorphine (Apokyn); or ?? you are allergic to ondansetron or similar medicines (dolasetron, granisetron, palonosetron). To make sure ondansetron is safe for you, tell your doctor if you have: ?? liver disease; ?? an electrolyte imbalance (such as low levels of potassium or magnesium in your blood); ?? congestive heart failure, slow heartbeats; ?? a personal or family history of long QT syndrome; or ?? a blockage in your digestive tract (stomach or intestines). Ondansetron is not expected to harm an unborn baby. Tell your doctor if you are . It is not known whether ondansetron passes into breast milk or if it could harm a nursing baby. Tell your doctor if you are breast-feeding a baby. Ondansetron is not approved for use by anyone younger than 4 years old. Ondansetron orally disintegrating tablets may contain phenylalanine. Tell your doctor if you have phenylketonuria (PKU). How should I take ondansetron? Follow all directions on your prescription label. Do not take this medicine in larger or smaller amounts or for longer than recommended. Ondansetron can be taken with or without food. The first dose of ondansetron is usually taken before the start of your surgery, chemotherapy, or radiation treatment. Follow your doctor's dosing instructions very carefully. Take the ondansetron regular tablet with a full glass of water. To take the orally disintegrating tablet (Zofran ODT): ?? Keep the tablet in its blister pack until you are ready to take it. Open the package and peel back the foil. Do not push a tablet through the foil or you may damage the tablet. ?? Use dry hands to remove the tablet and place it in your mouth. ?? Do not swallow the tablet whole. Allow it to dissolve in your mouth without chewing. ?? Swallow several times as the tablet dissolves. To use ondansetron oral soluble film (strip) (Zuplenz): ?? Keep the strip in the foil pouch until you are ready to use the medicine. ?? Using dry hands, remove the strip and place it on your tongue. It will begin to dissolve right away. ?? Do not swallow the strip whole. Allow it to dissolve in your mouth without chewing. ?? Swallow several times after the strip dissolves. If desired, you may drink liquid to help swallow the dissolved strip. ?? Wash your hands after using Zuplenz. Measure liquid medicine with the dosing syringe provided, or with a special dose-measuring spoon or medicine cup. If you do not have a dose-measuring device, ask your pharmacist for one. Store at room temperature away from moisture, heat, and light. Store liquid medicine in an upright position. What happens if I miss a dose? Take the missed dose as soon as you remember. Skip the missed dose if it is almost time for your next scheduled dose. Do not take extra medicine to make up the missed dose. What happens if I overdose? Seek emergency medical attention or call the Poison Help line at . Overdose symptoms may include sudden loss of vision, severe constipation, feeling light-headed, or fainting. What should I avoid while taking ondansetron? Ondansetron may impair your thinking or reactions. Be careful if you drive or do anything that requires you to be alert. What are the possible side effects of ondansetron? Get emergency medical help if you have signs of an allergic reaction: rash, hives; fever, chills, difficult breathing; swelling of your face, lips, tongue, or throat. Call your doctor at once if you have: ?? severe constipation, stomach pain, or bloating; ?? headache with chest pain and severe dizziness, fainting, fast or pounding heartbeats; ?? fast or pounding heartbeats; ?? jaundice (yellowing of the skin or eyes); ?? blurred vision or temporary vision loss (lasting from only a few minutes to several hours); ?? high levels of serotonin in the body--agitation, hallucinations, fever, fast heart rate, overactive reflexes, nausea, vomiting, diarrhea, loss of coordination, fainting. Common side effects may include: ?? diarrhea or constipation; ?? headache; ?? drowsiness; or ?? tired feeling. This is not a complete list of side effects and others may occur. Call your doctor for medical advice about side effects. You may report side effects to FDA at 0-234-KOX-7762. What other drugs will affect ondansetron? Ondansetron can cause a serious heart problem, especially if you use certain medicines at the same time, including antibiotics, antidepressants, heart rhythm medicine, antipsychotic medicines, and medicines to treat cancer, malaria, HIV or AIDS. Tell your doctor about all medicines you use, and those you start or stop using during your treatment with ondansetron. Taking ondansetron while you are using certain other medicines can cause high levels of serotonin to build up in your body, a condition called 'serotonin syndrome,' which can be fatal. Tell your doctor if you also use: ?? medicine to treat depression; ?? medicine to treat a psychiatric disorder; ?? a narcotic (opioid) medication; or ?? medicine to prevent nausea and vomiting. This list is not complete and many other drugs can interact with ondansetron. This includes prescription and [id number] medicines, vitamins, and herbal products. Give a list of all your medicines to any healthcare provider who treats you. Where can I get more information? Your pharmacist can provide more information about ondansetron. Remember, keep this and all other medicines out of the reach of children, never share your medicines with others, and use this medication only for the indication prescribed. Every effort has been made to ensure that the information provided by [employer] is accurate, up-to-date, and complete, but no guarantee is made to that effect. Drug information contained herein may be time sensitive. [employer] information has been compiled for use by healthcare practitioners and consumers in the [place] and therefore [employer] does not warrant that uses outside of the [place] are appropriate, unless specifically indicated otherwise. [employer] drug information does not endorse drugs, diagnose patients or recommend therapy. [employer] drug information is an informational resource designed to assist licensed healthcare practitioners in caring for their patients and/or to serve consumers viewing this service as a supplement to, and not a substitute for, the expertise, skill, knowledge and judgment of healthcare practitioners. The absence of a warning for a given drug or drug combination in no way should be construed to indicate that the drug or drug combination is safe, effective or appropriate for any given patient. [facility] does not assume any responsibility for any aspect of healthcare administered with the aid of information [facility] provides. The information contained herein is not intended to cover all possible uses, directions, precautions, warnings, drug interactions, allergic reactions, or adverse effects. If you have questions about the drugs you are taking, check with your doctor, nurse or pharmacist. Copyright 4958-6328 [facility] [employer]. Version: 13.01. Revision Date: 01/28/2016. acetaminophen and hydrocodone (a SEET a MIN oh fen and audrey droe KOE done) Hycet, Lorcet, [place], Verdrocet, Vicodin, Xodol, Zamicet What is the most important information I should know about acetaminophen and hydrocodone? MISUSE OF OPIOID MEDICINE CAN CAUSE ADDICTION, OVERDOSE, OR . Keep the medication in a place where others cannot get to it. An overdose of acetaminophen can damage your liver or cause . Call your doctor at once if you have pain in your upper stomach, loss of appetite, dark urine, or jaundice (yellowing of your skin or eyes). Taking opioid medicine during may cause life-threatening withdrawal symptoms in the . Fatal side effects can occur if you use opioid medicine with alcohol, or with other drugs that cause drowsiness or slow your breathing. Stop taking this medicine and call your doctor right away if you have skin redness or a rash that spreads and causes blistering and peeling. What is acetaminophen and hydrocodone? Hydrocodone is an opioid pain medication, sometimes called a narcotic. Acetaminophen is a less potent pain reliever that increases the effects of hydrocodone. Acetaminophen and hydrocodone is a combination medicine used to relieve moderate to severe pain. Acetaminophen and hydrocodone may also be used for purposes not listed in this medication guide. What should I discuss with my healthcare provider before taking acetaminophen and hydrocodone? You should not use this medicine if you are allergic to acetaminophen or hydrocodone, or if you have: ?? severe asthma or breathing problems; or ?? a blockage in your stomach or intestines. Tell your doctor if you have ever had: ?? liver disease; ?? a drug or alcohol addiction; ?? kidney disease; ?? a head injury or seizures; ?? urination problems; or ?? problems with your thyroid, pancreas, or gallbladder. If you use opioid medicine while you are , your baby could become dependent on the drug. This can cause life-threatening withdrawal symptoms in the baby after it is born. Babies born dependent on opioids may need medical treatment for several weeks. Do not breast-feed. This medicine can pass into breast milk and cause drowsiness, breathing problems, or in a nursing baby. How should I take acetaminophen and hydrocodone? Follow all directions on your prescription label. Never take this medicine in larger amounts, or for longer than prescribed. An overdose can damage your liver or cause . Tell your doctor if the medicine seems to stop working as well in relieving your pain. Always check your bottle to make sure you have received the correct pills (same brand and type) of medicine prescribed by your doctor. Never share this medicine with another person, especially someone with a history of drug abuse or addiction. MISUSE CAN CAUSE ADDICTION, OVERDOSE, OR . Keep the medicine in a place where others cannot get to it. Selling or giving away acetaminophen and hydrocodone is against the law. Measure liquid medicine carefully. Use the dosing syringe provided, or use a medicine dose-measuring device (not a kitchen spoon). If you need surgery or medical tests, tell the doctor ahead of time that you are using this medicine. You should not stop using this medicine suddenly. Follow your doctor's instructions about tapering your dose. Store at room temperature away from moisture and heat. Keep track of your medicine. You should be aware if anyone is using it improperly or without a prescription. Do not keep leftover opioid medication. Just one dose can cause in someone using this medicine accidentally or improperly. Ask your pharmacist where to locate a drug take-back disposal program. If there is no take-back program, flush the unused medicine down the toilet. What happens if I miss a dose? Since this medicine is used for pain, you are not likely to miss a dose. Skip any missed dose if it is almost time for your next dose. Do not use two doses at one time. What happens if I overdose? Seek emergency medical attention or call the Poison Help line at . An overdose of acetaminophen and hydrocodone can be fatal. The first signs of an acetaminophen overdose include loss of appetite, nausea, vomiting, stomach pain, sweating, and confusion or weakness. Later symptoms may include pain in your upper stomach, dark urine, and yellowing of your skin or the whites of your eyes. Overdose can also cause severe muscle weakness, pinpoint pupils, very slow breathing, extreme drowsiness, or coma. What should I avoid while taking acetaminophen and hydrocodone? Avoid driving or operating machinery until you know how this medicine will affect you. Dizziness or drowsiness can cause falls, accidents, or severe injuries. Do not drink alcohol. Dangerous side effects or could occur. Ask a doctor or pharmacist before using any other medicine that may contain acetaminophen (sometimes abbreviated as APAP). Taking certain medications together can lead to a fatal overdose. What are the possible side effects of acetaminophen and hydrocodone? Get emergency medical help if you have signs of an allergic reaction: hives; difficulty breathing; swelling of your face, lips, tongue, or throat. Opioid medicine can slow or stop your breathing, and may occur. A person caring for you should seek emergency medical attention if you have slow breathing with long pauses, blue colored lips, or if you are hard to wake up. In rare cases, acetaminophen may cause a severe skin reaction that can be fatal. This could occur even if you have taken acetaminophen in the past and had no reaction. Stop taking this medicine and call your doctor right away if you have skin redness or a rash that spreads and causes blistering and peeling. Call your doctor at once if you have: ?? noisy breathing, sighing, shallow breathing; ?? a light-headed feeling, like you might pass out; ?? liver problems--nausea, upper stomach pain, tiredness, loss of appetite, dark urine, lucien-colored stools, jaundice (yellowing of the skin or eyes); or ?? low cortisol levels-- nausea, vomiting, loss of appetite, dizziness, worsening tiredness or weakness. Seek medical attention right away if you have symptoms of serotonin syndrome, such as: agitation, hallucinations, fever, sweating, shivering, fast heart rate, muscle stiffness, twitching, loss of coordination, nausea, vomiting, or diarrhea. Serious side effects may be more likely in older adults and those who are overweight, malnourished, or debilitated. Long-term use of opioid medication may affect fertility (ability to have children) in men or women. It is not known whether opioid effects on fertility are permanent. Common side effects include: ?? dizziness, drowsiness, feeling tired; ?? nausea, vomiting, stomach pain; ?? constipation; or ?? headache. This is not a complete list of side effects and others may occur. Call your doctor for medical advice about side effects. You may report side effects to FDA at 0-867-LPS-5047. What other drugs will affect acetaminophen and hydrocodone? You may have breathing problems or withdrawal symptoms if you start or stop taking certain other medicines. Tell your doctor if you also use an antibiotic, antifungal medication, heart or blood pressure medication, seizure medication, or medicine to treat HIV or hepatitis C. Opioid medication can interact with many other drugs and cause dangerous side effects or . Be sure your doctor knows if you also use: ?? cold or allergy medicines, bronchodilator asthma/COPD medication, or a diuretic ('water pill'); ?? medicines for motion sickness, irritable bowel syndrome, or overactive bladder; ?? other narcotic medications--opioid pain medicine or prescription cough medicine; ?? a sedative like Valium--diazepam, alprazolam, lorazepam, Xanax, Klonopin, Versed, and others; ?? drugs that make you sleepy or slow your breathing--a sleeping pill, muscle relaxer, medicine to treat mood disorders or mental illness; ?? drugs that affect serotonin levels in your body--a stimulant, or medicine for depression, Parkinson's disease, migraine headaches, serious infections, or nausea and vomiting. This list is not complete. Other drugs may affect acetaminophen and hydrocodone, including prescription and [id number]-[id number] medicines, vitamins, and herbal products. Not all possible interactions are listed here. Where can I get more information? Your doctor or pharmacist can provide more information about acetaminophen and hydrocodone. Remember, keep this and all other medicines out of the reach of children, never share your medicines with others, and use this medication only for the indication prescribed. Every effort has been made to ensure that the information provided by [employer] is accurate, up-to-date, and complete, but no guarantee is made to that effect. Drug information contained herein may be time sensitive. [employer] information has been compiled for use by healthcare practitioners and consumers in the [place] and therefore [employer] does not warrant that uses outside of the [place] are appropriate, unless specifically indicated otherwise. [employer] drug information does not endorse drugs, diagnose patients or recommend therapy. [employer] drug information is an informational resource designed to assist licensed healthcare practitioners in caring for their patients and/or to serve consumers viewing this service as a supplement to, and not a substitute for, the expertise, skill, knowledge and judgment of healthcare practitioners. The absence of a warning for a given drug or drug combination in no way should be construed to indicate that the drug or drug combination is safe, effective or appropriate for any given patient. [employer] does not assume any responsibility for any aspect of healthcare administered with the aid of information [employer] provides. The information contained herein is not intended to cover all possible uses, directions, precautions, warnings, drug interactions, allergic reactions, or adverse effects. If you have questions about the drugs you are taking, check with your doctor, nurse or pharmacist. Copyright 8531-5152 [employer]. Version: 15.. Revision Date: 02/11/2018. omeprazole (oh MEP ra zol) FIRST Omeprazole, Omeprazole + SyrSpend SF Cecilia, PriLOSEC, PriLOSEC OTC What is the most important information I should know about omeprazole? Omeprazole can cause kidney problems. Tell your doctor if you are urinating less than usual, or if you have blood in your urine. Diarrhea may be a sign of a new infection. Call your doctor if you have diarrhea that is watery or has blood in it. Omeprazole may cause new or worsening symptoms of lupus. Tell your doctor if you have joint pain and a skin rash on your cheeks or arms that worsens in sunlight. You may be more likely to have a broken bone while taking this medicine terminal clerk or more than once per day. What is omeprazole? Omeprazole is a proton pump inhibitor that decreases the amount of acid produced in the stomach. Omeprazole is used to treat symptoms of gastroesophageal reflux disease (GERD) and other conditions caused by excess stomach acid. Omeprazole is also used to promote healing of erosive esophagitis (damage to your esophagus caused by stomach acid). Omeprazole may also be given together with antibiotics to treat gastric ulcer caused by infection with Helicobacter pylori (H. pylori). Dpnf-wgr-yzhfect (OTC) omeprazole is used in adults to help control heartburn that occurs 2 or more days per week. This medicine not for immediate relief of heartburn symptoms. OTC omeprazole must be taken on a regular basis for 14 days in a row. Omeprazole may also be used for purposes not listed in this medication guide. What should I discuss with my healthcare provider before taking omeprazole? Heartburn can mimic early symptoms of a heart attack. Get emergency medical help if you have chest pain that spreads to your jaw or shoulder and you feel sweaty or light-headed. You should not use omeprazole if you are allergic to it, or if: ?? you are also allergic to medicines like omeprazole, such as esomeprazole, lansoprazole, pantoprazole, rabeprazole, Nexium, Prevacid, Protonix, and others; or ?? you also take HIV medication that contains rilpivirine (such as Complera, Edurant, Odefsey, Juluca). Ask a doctor or pharmacist if this medicine is safe to use if you have: ?? trouble or pain with swallowing; ?? bloody or black stools, vomit that looks like blood or coffee grounds; ?? heartburn that has lasted for over 3 months; ?? frequent chest pain, heartburn with wheezing; ?? unexplained weight loss; ?? nausea or vomiting, stomach pain; ?? liver disease; ?? low levels of magnesium in your blood; or ?? osteoporosis or low bone mineral density (osteopenia). You may be more likely to have a broken bone in your hip, wrist, or spine while taking a proton pump inhibitor long-term or more than once per day. Talk with your doctor about ways to keep your bones healthy. Ask a doctor before using this medicine if you are or breast-feeding. Do not give this medicine to a child without medical advice. How should I take omeprazole? Follow all directions on your prescription label and read all medication guides or instruction sheets. Use the medicine exactly as directed. Use Prilosec OTC ([id number]) exactly as directed on the label, or as prescribed by your doctor. Read and carefully follow any Instructions for Use provided with your medicine. Ask your doctor or pharmacist if you do not understand these instructions. Shake the oral suspension (liquid) before you measure a dose. Use the dosing syringe provided, or use a medicine dose-measuring device (not a kitchen spoon). If you cannot swallow a capsule whole, open it and sprinkle the medicine into a spoonful of applesauce. Swallow the mixture right away without chewing. Do not save it for later use. You must dissolve omeprazole powder in a small amount of water. This mixture can either be swallowed or given through a nasogastric (NG) feeding tube using a catheter-tipped syringe. Use this medicine for the full prescribed length of time, even if your symptoms quickly improve. OTC omeprazole should be taken for only 14 days in a row. It may take 1 to 4 days before your symptoms improve. Allow at least 4 months to pass before you start a new 14-day course of treatment. Call your doctor if your symptoms do not improve, or if they get worse. Some conditions are treated with a combination of omeprazole and antibiotics. Use all medications as directed. This medicine can affect the results of certain medical tests. Tell any doctor who treats you that you are using omeprazole. Store at room temperature away from moisture and heat. What happens if I miss a dose? Take the medicine as soon as you can, but skip the missed dose if it is almost time for your next dose. Do not take two doses at one time. What happens if I overdose? Seek emergency medical attention or call the Poison Help line at . What should I avoid while taking omeprazole? This medicine can cause diarrhea, which may be a sign of a new infection. If you have diarrhea that is watery or bloody, call your doctor before using anti-diarrhea medicine. What are the possible side effects of omeprazole? Get emergency medical help if you have signs of an allergic reaction: hives; difficulty breathing; swelling of your face, lips, tongue, or throat. Stop using omeprazole and call your doctor at once if you have: ?? severe stomach pain, diarrhea that is watery or bloody; ?? new or unusual pain in your wrist, thigh, hip, or back; ?? seizure (convulsions); ?? kidney problems--little or no urination, blood in your urine, swelling, rapid weight gain; ?? low magnesium--dizziness, irregular heartbeats, feeling jittery, muscle cramps, muscle spasms, cough or choking feeling; or ?? new or worsening symptoms of lupus--joint pain, and a skin rash on your cheeks or arms that worsens in sunlight. Taking omeprazole long-term may cause you to develop stomach growths called fundic gland polyps. Talk with your doctor about this risk. If you use omeprazole for longer than 3 years, you could develop a vitamin B-12 deficiency. Talk to your doctor about how to manage this condition if you develop it. Common side effects may include: ?? stomach pain, gas; ?? nausea, vomiting, diarrhea; or ?? headache. This is not a complete list of side effects and others may occur. Call your doctor for medical advice about side effects. You may report side effects to FDA at 7-495-EWU-6541. What other drugs will affect omeprazole? Sometimes it is not safe to use certain medications at the same time. Some drugs can affect your blood levels of other drugs you take, which may increase side effects or make the medications less effective. Tell your doctor about all your current medicines. Many drugs can affect omeprazole, especially: ?? clopidogrel; ?? methotrexate; ?? Mar's wort; or ?? an antibiotic--amoxicillin, clarithromycin, rifampin. This list is not complete and many other drugs may affect omeprazole. This includes prescription and [id number]-[id number] medicines, vitamins, and herbal products. Not all possible drug interactions are listed here. Where can I get more information? Your pharmacist can provide more information about omeprazole. Remember, keep this and all other medicines out of the reach of children, never share your medicines with others, and use this medication only for the indication prescribed. Every effort has been made to ensure that the information provided by [employer]. ('[employer]') is accurate, up-to-date, and complete, but no guarantee is made to that effect. Drug information contained herein may be time sensitive. [employer] information has been compiled for use by healthcare practitioners and consumers in the [place] and therefore [employer] does not warrant that uses outside of the [place] are appropriate, unless specifically indicated otherwise. [employer] drug information does not endorse drugs, diagnose patients or recommend therapy. [employer] drug information is an informational resource designed to assist licensed healthcare practitioners in caring for their patients and/or to serve consumers viewing this service as a supplement to, and not a substitute for, the expertise, skill, knowledge and judgment of healthcare practitioners. The absence of a warning for a given drug or drug combination in no way should be construed to indicate that the drug or drug combination is safe, effective or appropriate for any given patient. [employer] does not assume any responsibility for any aspect of healthcare administered with the aid of information [employer] provides. The information contained herein is not intended to cover all possible uses, directions, precautions, warnings, drug interactions, allergic reactions, or adverse effects. If you have questions about the drugs you are taking, check with your doctor, nurse or pharmacist. Copyright 4538-1720 [employer]. Version: 20.. Revision Date: 07/18/2018. Emergency Awareness and Preventative Care STROKE is an EMERGENCY Every Minute Counts Act FAST and Check for these signs: FACE Does the face look uneven? ARM Does one arm drift down? SPEECH Does their speech sound strange? TIME Call at any sign of stroke Stroke Risk Factors Atrial Fibrillation (irregular heartbeat) Diabetes Family history of stroke Heart Disease Heavy alcohol use High Blood Pressure High Cholesterol Physical inactivity and obesity Smoking Cigarette Smoking The facts are clear, cigarette smoking will shorten your life. Smoking can cause many illnesses along the way. As a healthcare provider, we recommend that you stop smoking. Assistance with quitting is available by contacting 7-818-BBMD-NOW. This is a free resource providing counseling, support, and referral. Or you may contact your personal physician. National Suicide Prevention Lifeline: The National Suicide Prevention Lifeline is a national network of local crisis centers that provides free and confidential emotional support to people in suicidal crisis or emotional distress 24 hours a day, 7 days a week. Don't Wait! Stop a Heart Attack Before it Starts What is a heart attack? A heart attack is damage or to a part of the heart from severely decreased or lack of blood flow to the heart. Over time, arteries can become narrow from the buildup of fat and cholesterol, which is called plaque. The plaque can rupture causing a blood clot to form. When the blood clot forms, the artery can become severely narrowed or completely blocked, causing a heart attack. Heart attack is the leading cause of in the [place]. 85% of muscle damage occurs within the first 2 hours. Delay in the recognition of heart attack symptoms increases the chances of . Know the early symptoms of a heart attack: Nausea Feeling of fullness in chest Jaw Pain Pain that travels down one or both arms Fatigue/being tired Anxiety Back Pain Chest pressure, squeezing, or discomfort Shortness of breath Sweating, or a cold sweat Feeling of impending doom There are unusual signs of a heart attack, too! Women, the elderly, and diabetics may present with atypical symptoms: Fainting/dizziness Weakness Confusion Risk Factors for a Heart Attack Some heart disease risk factors, such as age and family history, cannot be changed. Others, like smoking and lack of exercise, can be changed. Smoking High Cholesterol High Blood Pressure Family History Obesity Age Gender (Males are at higher risk) Lack of Exercise Diabetes Diet Stress Excessive Alcohol Intake If you or someone you know is experiencing the signs and symptoms of a heart attack, DON???T DELAY. Call immediately and seek help. If someone collapses, perform CPR! Do not attempt to drive if you are having symptoms of heart attack. Hands-Only CPR Why Hands-Only CPR? Hands-Only CPR has been shown to be as effective as conventional CPR for cardiac arrests that occur outside of a hospital. Survival depends on immediately receiving CPR from someone nearby. How do you perform Hands-Only CPR? There are two easy steps: Call if you see a teen or adult collapse Push hard and fast in the center of the chest at a beat of 100 beats per minute. Save a life! 4 WAYS TO GET AHEAD OF SEPSIS SEPSIS is a MEDICAL EMERGENCY. Time matters! Infections put you and your family at risk for a life-threatening condition called sepsis. Sepsis is the body's extreme response to an infection. It is life-threatening, and without timely treatment, sepsis can rapidly lead to tissue damage, organ failure, and . Sepsis happens when an infection you already have-in your skin, lungs, urinary tract or somewhere else-triggers a chain reaction throughout your body. 1 PREVENT INFECTIONS Take good care of chronic conditions. Talk to your doctor about getting the recommended vaccines. 2 PRACTICE GOOD HYGIENE Wash your hands frequently. Keep cuts or open sores clean and covered until they are healed. 3 KNOW THE SYMPTOMS Confusion or disorientation Shortness of breath High heart rate Fever, shivering, or feeling very cold Extreme pain or discomfort Clammy or sweaty skin 4 ACT FAST Get medical care IMMEDIATELY if you suspect sepsis or if you have an infection that is not getting better or is getting worse. To learn more about sepsis and how to prevent infections, visit www.cdc.gov/sepsis. Test Results Laboratory or Other Results This Visit (last charted value for your 04/07/2019 visit) Hematology 04/08/2019 3:16 AM WBC: 14.9 K/uL -- Normal range between ( 3.9 and 10.0 ) RBC: 4.17 Million/uL -- Normal range between ( 3.93 and 5.22 ) Hct: 37.2 % -- Normal range between ( 34.1 and 44.9 ) Hgb: 12.1 Gram/dL -- Normal range between ( 11.2 and 15.7 ) Platelet Count: 271 K/uL -- Normal range between ( 163 and 369 ) MCH: 29.0 pg -- Normal range between ( 25.6 and 32.2 ) MCHC: 32.5 Gram/dL -- Normal range between ( 32.3 and 36.5 ) MCV: 89.2 fL -- Normal range between ( 79.0 and 94.8 ) Slide Review: No Eos %: 0.0 % -- Normal range between ( 1.0 and 7.0 ) Louisa #: 1.00 K/uL -- Normal range between ( 0.24 and 0.82 ) Eos #: 0.00 K/uL -- Normal range between ( 0.04 and 0.54 ) Louisa %: 6.7 % -- Normal range between ( 4.7 and 12.5 ) Baso %: 0.1 % -- Normal range between ( 0.0 and 1.0 ) Baso #: 0.01 K/uL -- Normal range between ( 0.01 and 0.08 ) RDW: 12.6 % -- Normal range between ( 11.6 and 14.4 ) Neut %: 82.2 % -- Normal range between ( 34.0 and 71.0 ) Neut #: 12.23 K/uL -- Normal range between ( 1.56 and 6.13 ) Lymph %: 10.5 % -- Normal range between ( 19.3 and 53.0 ) Lymph #: 1.57 K/uL -- Normal range between ( 1.18 and 3.74 ) MPV: 10.4 fL -- Normal range between ( 9.4 and 12.4 ) IG#: 0 x10(3)/uL IG%: 0 % -- Normal range between ( 0 and 1 ) General Chemistry 04/08/2019 3:16 AM Creatinine Level: 0.66 mg/dL -- Normal range between ( 0.55 and 1.02 ) Sodium Level: 137 mmol/L -- Normal range between ( 136 and 146 ) Potassium Level: 4.7 mmol/L -- Normal range between ( 3.5 and 5.1 ) Chloride Level: 103 mmol/L -- Normal range between ( 102 and 112 ) Carbon Dioxide Level: 27 mmol/L -- Normal range between ( 21 and 32 ) Anion Gap: 12 -- Normal range between ( 9 and 20 ) Bun/Creatinine: 9.1 -- Normal range between ( 8.0 and 20.0 ) Calcium Level: 8.3 mg/dL -- Normal range between ( 8.5 and 10.1 ) eGFR : >60 mL/min/1.73m2 eGFR NonAfrican: >60 mL/min/1.73m2 Glucose Level: 99 mg/dL -- Normal range between ( 74 and 106 ) Blood Urea Nitrogen: 6 mg/dL -- Normal range between ( 7 and 22 ) Endocrinology 04/07/2019 7:04 AM HCG Urine Qualitative: Negative Patient Name:NICHOLAS MELVIN I have received and understand this information and was given the opportunity to ask questions. Patient/Clinical Documentation Developer Name: Patient/Clinical Documentation Developer Signature: Relationship to Patient: Clinician/Hospital Clinical Documentation Developer Signature: Date: Electronically signed by Interface, [facility] Registered Nurse Parminder at 07/24/2022 7:26 PM CDT documented in this encounter Plan of Treatment Not on file documented as of this encounter Visit Diagnoses Not on filedocumented in this encounter
--- OUTSIDE RECORDS SUMMARY | 2025-01-30 13:55 | XMS_ITS | Encounter Summary ---
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
--- OUTSIDE RECORDS SUMMARY | 2025-01-30 13:55 | XMS_ITS | Clinical Summary ---
Author Organization [facility] [place] Address [address] [place] [id number] Phone Care Team Providers Care Ocean [employer] Lieutenant Name Role Phone Vianca Desai MD Primary Care Provider [phone] Andrzej Barber MD Unavailable [phone] Allergies Active Allergy Reactions Criticality Noted Date Comments Penicillins Other (See Comments) 11/07/2013 Unknown reaction Medications lorcaserin (BELVIQ) 10 mg Oral Tablet Take 1 tablet by mouth 2 times daily. Body mass index is 39.92 kg/(m^2). Use for free 15 day trial from manufacture r. 30 tablet 0 01/16/2014 Active lorcaserin (BELVIQ) 10 mg Oral Tablet Take 1 tablet by mouth 2 times daily. Body mass index is 39.92 kg/(m^2). 60 tablet 1 01/16/2014 Active Active Problems Problem Noted Date Diagnosed Date Weight gain, abnormal 11/07/2013 Family history of diabetes mellitus type II 04/2013 Surgical History Surgery Date Site/Laterality Comments CHOLECYSTECTOMY Family History Medical History Relation Name Comments Diabetes Brother Diabetes Father Diabetes Maternal Grandmother Relation Name Status Comments Brother Father Alive Maternal Grandfather Maternal Grandmother Alive Mother Alive Paternal Grandfather Paternal Grandmother Social History Tobacco Use Types Packs/Day Years Used Date Smoking Tobacco: Former Smokeless Tobacco: Never Alcohol Use Standard Drinks/Week Comments No 0 (1 standard drink = 0.6 oz pur e alcohol) Comments Unknown Sex and Gender Information Value Date Recorded Sex Assigned at Not on file Legal Sex Female 2:39 PM EDT Gender Identity Not on file Sexual Orientation Not on file Last Filed Vital Signs Vital Sign Reading Time Taken Comments Blood Pressure 116/78 01/16/2014 11:09 AM EDT Pulse 72 01/16/2014 11:09 AM EDT Temperature - - Respiratory Rate 12 01/16/2014 11:09 AM EDT Oxygen Saturation - - Inhaled Oxygen Concentration - - Weight 103.9 kg (229 lb) 01/16/2014 11:09 AM EDT Height 161.3 cm (5' 3.5 ) 01/16/2014 11:09 AM ED T Body Mass Index 39.93 01/16/2014 11:09 AM EDT Plan of Treatment Health Maintenance Due Date Last Done Comments Annual Wellness Exam 09/18/1983 DTaP/TDaP/Td (1 - Tdap) 09/18/1999 Hepatitis B Vaccine (1 of 3 - 19+ 3-dose series) 09/18/1999 Cervical Cancer Screening 2001 Pap Smear 2001 HPV/Pap Cotest 2010 Breast Cancer Screening 2020 COVID-19 Vaccine (1 - 2024-2 6 season) 2024 Influenza Vaccine (#1) 2024 Meningococcal B Vaccine Aged Out No l onger eligible based on patient's age to complete this topic Pneumococcal Vaccine 0-49 Aged Out No longer eligible based on patient's age to complete this topic Insurance [employer] PPO on file HU[employer] PPO on file Care Teams Ocean [employer] Lieutenant Relationship Specialty Start Date End Date Vianca Desai MD [address] [place] [address] PCP - General Family Medicine 11/07/13 Andrzej Barber MD [address] [phone] Internal Medicine-Endocrinology, Diabetes & Metabolism 11/07/13
--- OUTSIDE RECORDS SUMMARY | 2025-01-30 13:55 | XMS_ITS | Encounter Summary ---
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 Has been taking vitamin D 5000 IU daily and MVI daily in preparation for surgery. Allergies (1) Active Reaction penicillin Rash Thank you, Kin Phoenix, TatiD, MSCR, BCPS Electronically signed by [facility] Program Coordinator Cerner at 07/24/2022 7:26 PM CDT documented in this encounter Plan of Treatment Not on file documented as of this encounter Visit Diagnoses Not on filedocumented in this encounter
--- OUTSIDE RECORDS SUMMARY | 2025-01-30 13:55 | XMS_ITS | Encounter Summary ---
Author Organization [employer] ([place], [place], [place], [place]) Address [address] [place] [address] Care Team Providers Care Seed Sales Manager Name Role Phone Unavailable Primary Care Provider Unavailabl e Encounter Details Date Type Department Care Team (Late st Contact Info) Description 02/28/2019 Transcribed Document [facility] [place] Family Medicine Formerly [facility] [place] [address] ProviderNancy MD [address] [place] [address] Social History Tobacco Use Types [...] Conversion Note - Historical ProviderMD - 02/28/2019 11:54 AM 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 Adult Entered On: 02/28/2019 12:02 EST Performed On: 02/28/2019 11:54 EST by TOREY SANCHEZ RN Height and Weight, Clinical Dosing Height Source : Stated Height Entry Format : Desha Height, Feet : 5 ft(Converted to: 152 cm, 60 Inch) Height, Inches : 3 Inch(Converted to: 0 ft 3 Inch, 7.62 cm) Clinical Height : 160.02 cm Weight Source : Standing scale Weight Entry Format : Desha Clinical Dosing Weight : 112.73 kg Weight, Pounds : 248 lb Body Surface Area (BSA) : 2.12 m2 Body Mass Index : 44 kg/m2 (>HHI) [place] Body Weight : 52 kg TOREY SANCHEZ RN - 02/28/2019 11:54 EST Health Histories Smoking Status : Never (less than 100 in lifetime; none in last 30 days) Smokeless Tobacco Status : Never TOREY SANCHEZ RN - 02/28/2019 11:54 EST Social History (As Of: 02/28/2019 12:02:40 EST) Tobacco: Never (less than 100 in [...] Disease History : Chicken pox/Shingles, Influenza, Measles Fever/Chills Last 48 Hours : No Travel To Regions with Travel Advisories : No Travel Outside [place] Within Last 30 Days : No Contact With Traveler to Advisory Region : No Tuberculosis Symptoms : None TOREY SANCHEZ RN - 02/28/2019 11:54 EST Anesthesia/Transfusion History Family History of Anesthesia Reaction : No prior transfusion(s) Transfusion History : Prior anesthesia without reaction Family History of Anesthesia Reaction : None TOREY SANCHEZ RN - 02/28/2019 11:54 EST Functional Assessment Living Situation : Home Patient Lives With : Dependent Child/Children, Spouse Current Home Treatments : None TOREY SANCHEZ RN - 02/28/2019 11:54 EST [place] Suicide Severity Rating Scale (C-SSRS) CSSRS Past Month Wish to be : No CSSRS Past Month Suicidal Thoughts : No CSSRS Lifetime Suicide Behavior : No Suicide Severity Rating Score : 0 Suicide Severity Rating : No Additional Care Required at this time TOREY SANCHEZ RN - 02/28/2019 11:54 EST Psychosocial History Currently in Unsafe Situation : No TOREY SANCHEZ RN - 02/28/2019 11:54 EST Advance Directive Patient has Advance Directive *Q : No, patient refuses Advance Directive information TOREY SANCHEZ RN - 02/28/2019 11:54 EST Teaching/Learning Assessment Barriers To Learning : None evident Individuals Taught : Patient Readiness to Learn : Cooperative, Denies need for education Highest Level of Education : University degree(s) Baseline Knowledge of Topic : Good Readiness to Learn : Explanation, Printed materials TOREY SANCHEZ RN - 02/28/2019 11:54 EST General Info Arrived From : Home Mode of Arrival on Unit : Ambulatory Legal Guardian : Sibling Want Family/Rep/Phys Notified of Admit : No Emergency Contact #1 : Herber Baig Emergency Contact #1 Emergency Contact #1 Relationship : spouse Emergency Contact #2 : na Emergency Contact #2 Phone Number : na Emergency Contact #2 Relationship : na Information Obtained From : Patient Primary Language : Citizen Of [place] Preferred Communication Mode : Verbal Communication Barrier : None Objects to Sharing Info w Family : No TOREY SANCHEZ RN - 02/28/2019 11:54 EST Sleep Apnea Risk Assmt Hx of Obstructive Sleep Apnea Diagnosis : No Snore Loudly : No Tired, Fatigued, or Sleepy During Day : No Observed Stopping Breathing During Sleep : No Have/Are Being Treated for Hypertension : No BMI Greater Than 35 kg/m2 : Yes Age over 50 Years Old : No Neck Circumference Greater Than 40 cm : Yes Gender Male : No STOP-BANG Sleep Apnea Risk Level Score : 2 TOREY SANCHEZ RN - 02/28/2019 11:54 EST Yamil Scale Yamil Sensory Perception : No impairment Yamil Moisture : Rarely moist Yamil Activity : Walks frequently Yamil Mobility : No limitation Yamil Nutrition : Excellent Yamil Friction and Shear : No apparent problem Yamil Score : 23 TOREY SANCHEZ RN - 02/28/2019 11:54 EST Pain Assessment Pain Assessment : Initial assessment Pain Scale Goal : 2 Pain Scale Used : 0-10 Scale TOREY SANCHEZ RN - 02/28/2019 11:54 EST Fall Risk Scales ABCs Fall Injury [...] Scale Risk Level : 0-24 Low Risk Lookout Fall Interventions : Bed in low position, Call device within reach, Room free of clutter/spills, Upper side-rails up, Wheels locked TOREY SANCHEZ RN - 02/28/2019 11:54 EST Valuables and Belongings Valuables and Belongings : Clothing, Jewelry, No jewelry Clothing : Common streetwear Clothing Disposition : Bedside Jewelry : Other: one earring in left ear Jewelry Disposition : With patient TOREY SANCHEZ RN - 02/28/2019 11:54 EST Pain Scale Intensity : 0 TOREY SANCHEZ RN - 02/28/2019 11:54 EST Image 4 - Images currently included in the form version of this document have not been included in the text rendition version of the form. documented in this encounter Plan of Treatment Not on file documented as of this encounter Visit Diagnoses Not on filedocumented in this encounter
--- OUTSIDE RECORDS SUMMARY | 2025-01-30 13:55 | XMS_ITS | Encounter Summary ---
Author Organization [employer] ([place], [place], [place], [place]) Address [address] [place] [address] Care Team Providers Care Sheep Farm Manager Name Role Phone Unavailable Primary Care Provider Unavailabl e Encounter Details Date Type Department Care Team (Late st Contact Info) Description 02/28/2019 Transcribed Document [facility] [place] [address] [place] [address] ProviderNancy MD [address] [place] [address] Social History Tobacco Use Types [...] Conversion Note - Historical ProviderMD - 02/28/2019 1:45 PM CARDIOLOGY TECHNICIAN [facility] PreOp Summary Primary Physician: ROXANNA CABRAL MD-REYNOLD Finalized Date/Time: 02/28/19 12:09:04 Pt. Name: NGOZI NICHOLASASIA CANTU /Sex: 1980 Female Med Rec #: [id number] Physician: BIJU KINNEY MD-REYNOLD Financial #: [id number] Pt. Type: O Room/Bed: [facility] Admit/Disch: 02/28/19 11:11:00 - Institution: [facility] PreOp Case Times Entry 1 In Preop 02/28/19 11:48:00 Ready for Holding n/a Room Patient Ready for 02/28/19 12:08:00 Surgery Patient Out of Preop 02/28/19 12:08:00 Patient Out of n/a Holding Room [facility] PreOp Case Times Audit 02/28/19 12:08:51 Pilot Boat Captain: AALIYAH Modifier: SMITDO <+> 1 Patient Out of Preop <+> 1 Patient Ready for Surgery Finalized By: TOREY SANCHEZ, RN Document Signatures Signed By: TOREY SANCHEZ RN 02/28/19 12:09 Electronically signed by [facility] Conversion Retail Advertising Account Executive Cerner at 07/24/2022 7:17 PM CDT documented in this encounter Plan of Treatment Not on file documented as of this encounter Visit Diagnoses Not on filedocumented in this encounter
--- OUTSIDE RECORDS SUMMARY | 2025-01-30 13:55 | XMS_ITS | Encounter Summary ---
Author Organization [employer] ([place], [place], [place], [place]) Address [address] [place] [address] Care Team Providers Care Wire Twisting Machine Operator Name Role Phone Unavailable Primary Care Provider Unavailabl e Encounter Details Date Type Department Care Team (Late st Contact Info) Description 04/08/2019 Transcribed Document [facility] [place] Family Medicine [address] [place] [address] ProviderNancy MD [facility] [place] [address] Social History Tobacco Use Types [...] Conversion Note - Nancy ProviderMD - 04/08/2019 3:06 PM [place]AL [place] [address] NICHOLAS MELVIN :1980 Visit Time:04/07/2019 Your Visit [...] Follow Up Instructions: followup one week from [id number] Follow Up Instructions: call office on sunday [...] Appointment has been made Where: [address] Bariatric Office - PHONE: [place] [address]- [phone] Follow Up with DURAN JIMENEZ When Within 1 to 2 weeks Comments Call for follow up appointment Where: [address] Bariatric Office - PHONE: [place] [address]- [phone] Business (1) Medications Take your medications faithfully. [...] Visit No Immunizations Found Education Materials Dr. Maeto Barrera, Dr. Harshal Jimenez, Dr. Doni Givens [...] your book, please call the Center at [phone]. ondansetron (oral) (on FARRUKH andria) Hui Ames [...] may report side effects to FDA at 9-752-QQR-1259. What other drugs will affect ondansetron? Ondansetron [...] interact with ondansetron. This includes prescription and qpyv-mqr-nexxzii medicines, vitamins, and herbal products. Give a [...] to ensure that the information provided by [employer]. ('[employer]') is accurate, up-to-date, and complete, but no guarantee is made to that effect. Drug information contained herein may be time sensitive. [employer] information has been compiled for use by healthcare practitioners and consumers in the [place] and therefore [employer] does not warrant that uses outside of the [place] are appropriate, unless specifically indicated otherwise. [employer] drug information does not endorse drugs, diagnose patients or recommend therapy. [employer] drug information is an informational resource designed [...] effective or appropriate for any given patient. [facility] does not assume any responsibility for any aspect of healthcare administered with the aid of information [facility] provides. The information contained herein is not intended to cover all possible uses, directions, precautions, warnings, drug interactions, allergic reactions, or adverse effects. If you have questions about the drugs you are taking, check with your doctor, nurse or pharmacist. Copyright 2604-9959 [facility] [employer]. Version: 13.01. Revision Date: 01/28/2016. acetaminophen and hydrocodone (a SEET a MIN oh fen and audrey droe KOE done) Hycet, Lorcet, [place], Verdrocet, Vicodin, Xodol, Zamicet What is the [...] may report side effects to FDA at 7-130-ZBW-3937. What other drugs will affect acetaminophen and [...] affect acetaminophen and hydrocodone, including prescription and ulyh-mes-egjxxxb medicines, vitamins, and herbal products. Not all [...] to ensure that the information provided by [employer]. ('[employer]') is accurate, up-to-date, and complete, but no guarantee is made to that effect. Drug information contained herein may be time sensitive. [employer] information has been compiled for use by healthcare practitioners and consumers in the [place] and therefore [employer] does not warrant that uses outside of the [place] are appropriate, unless specifically indicated otherwise. [employer] drug information does not endorse drugs, diagnose patients or recommend therapy. [employer] drug information is an informational resource designed [...] effective or appropriate for any given patient. [employer] does not assume any responsibility for any aspect of healthcare administered with the aid of information [employer] provides. The information contained herein is not intended to cover all possible uses, directions, precautions, warnings, drug interactions, allergic reactions, or adverse effects. If you have questions about the drugs you are taking, check with your doctor, nurse or pharmacist. Copyright 3299-3619 [employer]. Version: 15.. Revision Date: 02/11/2018. omeprazole (oh [...] a broken bone while taking this medicine director long term care or more than once per day. What [...] by infection with Helicobacter pylori (H. pylori). Nwve-jit-ciapcby (OTC) omeprazole is used in adults to [...] medicine exactly as directed. Use Prilosec OTC (ibez-ole-gfrhlqn) exactly as directed on the label, or [...] may report side effects to FDA at 0-325-UTO-6297. What other drugs will affect omeprazole? Sometimes [...] may affect omeprazole. This includes prescription and fqoo-ald-jvksrju medicines, vitamins, and herbal products. Not all [...] to ensure that the information provided by [employer]. ('[employer]') is accurate, up-to-date, and complete, but no guarantee is made to that effect. Drug information contained herein may be time sensitive. [employer] information has been compiled for use by healthcare practitioners and consumers in the [place] and therefore [employer] does not warrant that uses outside of the [place] are appropriate, unless specifically indicated otherwise. [employer] drug information does not endorse drugs, diagnose patients or recommend therapy. [employer] drug information is an informational resource designed [...] with your doctor, nurse or pharmacist. Copyright 4214-6941 [employer]. Version: 20.. Revision Date: 07/18/2018. Emergency Awareness [...] Assistance with quitting is available by contacting 5-866-LAMM-NOW. This is a free resource providing counseling, [...] range between ( 1.0 and 7.0 ) [place] #: 1.00 K/uL -- Normal range between ( 0.24 and 0.82 ) Eos #: 0.00 K/uL -- Normal range between ( 0.04 and 0.54 ) [place] %: 6.7 % -- Normal range between [...] was given the opportunity to ask questions. Patient/Periodicals Library Assistant Name: Patient/Periodicals Library Assistant Signature: Relationship to Patient: Clinician/Hospital Periodicals Library Assistant Signature: Date: Electronically signed by Interface, [facility] Conversion Business Economist Parminder at 07/24/2022 7:26 PM CDT documented in this encounter Plan of Treatment Not on file documented as of this encounter Visit Diagnoses Not on filedocumented in this encounter
--- OUTSIDE RECORDS SUMMARY | 2025-01-30 13:55 | XMS_ITS | Encounter Summary ---
Author Organization [employer] ([place], [place], [place], [place]) Address [address] [place] [address] Care Team Providers Care Refrigeration Plant Cork Insulator Name Role Phone Unavailable Primary Care Provider Unavailabl e Encounter Details Date Type Department Care Team (Late st Contact Info) Description 02/28/2019 Transcribed Document [facility] [place] Family Medicine [address] [place] [address] ProviderNancy MD [address] [place] [address] Social History Tobacco Use Types [...] Conversion Note - Historical ProviderMD - 02/28/2019 1:28 PM DIRECTOR OF CHILD WELFARE SERVICES [address] [address] NICHOLAS MELVIN :1980 Visit Time:02/28/2019 What to do next Your Diagnosis Gastro-esophageal reflux disease without esophagitis, Gastro-esophageal reflux disease without esophagitis Instructions From Your Care Team Diet after Discharge: Resume usual diet as tolerated, Do not drink any alcoholic beverages, Drink at least 8-10 glasses of water per day Fluid Restriction after Discharge: _ Activity after Discharge: _, Rest and relax today, No strenuous activity Lifting Restrictions: _ Weight Bearing: _ Bedrest: _ Driving after Discharge: Do not drive for 24 hours May Return to Work/School: tomorrow Showering/Bathing: May shower, _ Notify Provider of: any problems or concerns Wound/Incision Care after Discharge: _, _ Medical Equipment for Home Use: Home Health Services: Community Services: Follow-Up Appointments Follow Up with BIJU KINNEY MD-REYNOLD When Within As needed Comments follow up with biopsy results. follow up at the weight loss center Where: Medications What How Much When Instructions Next Dose multivitamin (Multi Vitamin+) Every Day Take your medications faithfully. Do NOT skip [...] Please dispose of unused and medications per pharmacy guidance. Education Materials Monitored Anesthesia Care Anesthesia is a term [...] including vitamins, herbs, eye drops, creams, and irma-mtr-upfaznv medicines. ??? Any use of steroids (by [...] Up to 2 hours before the procedure ??? you may continue to drink clear liquids, such as water, clear fruit juice, black coffee, and plain tea. Eating and drinking restrictions Follow instructions from your health care provider about eating and drinking, which may include: ??? 8 hours before the procedure ??? stop eating heavy meals or foods such as meat, fried foods, or fatty foods. ??? 6 hours before the procedure ??? stop eating light meals or foods, such as toast or cereal. ??? 6 hours before the procedure ??? stop drinking milk or drinks that contain milk. ??? 2 hours before the procedure ??? stop drinking clear liquids. Medicines Ask your [...] 12/20/2005 Document Revised: 09/01/2016 Document Reviewed: 07/16/2016 [employer] Patient Education ?? 2019 [employer] Gastritis, Adult Gastritis is inflammation of [...] Follow these instructions at home: ??? Take wwcx-acw-secrfef and prescription medicines only as told by [...] 03/20/2002 Document Revised: 11/06/2017 Document Reviewed: 12/18/2015 [employer] Patient Education ?? 2019 [employer] Esophagogastroduodenoscopy, Care After Refer to this [...] 03/12/2013 Document Revised: 08/31/2016 Document Reviewed: 02/17/2016 [employer] Patient Education ?? 2019 [employer]. Emergency Awareness and Preventative Care STROKE is [...] Assistance with quitting is available by contacting 1-288-PQEA-NOW. This is a free resource providing counseling, [...] This Visit (last charted value for your 02/28/2019 visit) Hematology 02/28/2019 9:26 AM WBC: 5.6 K/uL -- Normal range between ( 3.9 and 10.0 ) RBC: 4.73 Million/uL -- Normal range between ( 3.93 and 5.22 ) Hct: 41.7 % -- Normal range between ( 34.1 and 44.9 ) Hgb: 13.5 Gram/dL -- Normal range between ( 11.2 and 15.7 ) Platelet Count: 294 K/uL -- Normal range between ( 163 and 369 ) MCH: 28.5 pg -- Normal range between ( 25.6 and 32.2 ) MCHC: 32.4 Gram/dL -- Normal range between ( 32.3 and 36.5 ) MCV: 88.2 fL -- Normal range between ( 79.0 and 94.8 ) Slide Review: No Eos %: 2.2 % -- Normal range between ( 1.0 and 7.0 ) [place] #: 0.45 K/uL -- Normal range between ( 0.24 and 0.82 ) Eos #: 0.12 K/uL -- Normal range between ( 0.04 and 0.54 ) [place] %: 8.1 % -- Normal range between ( 4.7 and 12.5 ) Baso %: 0.5 % -- Normal range between ( 0.0 and 1.0 ) Baso #: 0.03 K/uL -- Normal range between ( 0.01 and 0.08 ) RDW: 12.3 % -- Normal range between ( 11.6 and 14.4 ) Neut %: 55.8 % -- Normal range between ( 34.0 and 71.0 ) Neut #: 3.10 K/uL -- Normal range between ( 1.56 and 6.13 ) Lymph %: 33.0 % -- Normal range between ( 19.3 and 53.0 ) Lymph #: 1.83 K/uL -- Normal range between ( 1.18 and 3.74 ) MPV: 9.9 fL -- Normal range between ( 9.4 and 12.4 ) IG#: 0 x10(3)/uL IG%: 0 % -- Normal range between ( 0 and 1 ) General Chemistry 02/28/2019 9:26 AM Creatinine Level: 0.67 mg/dL -- Normal range between ( 0.55 and 1.02 ) Sodium Level: 136 mmol/L -- Normal range between ( 136 and 146 ) Potassium Level: 4.3 mmol/L -- Normal range between ( 3.5 and 5.1 ) Chloride Level: 103 mmol/L -- Normal range between ( 102 and 112 ) Carbon Dioxide Level: 28 mmol/L -- Normal range between ( 21 and 32 ) Anion Gap: 9 -- Normal range between ( 9 and 20 ) Bilirubin Total: 0.4 mg/dL -- Normal range between ( 0.2 and 1.3 ) Hgb A1C: 5.40 % -- Normal range between ( 4.20 and 6.30 ) A/G Ratio: 1.0 -- Normal range between ( 1.1 and 2.5 ) ALT: 34 Units/Liter -- Normal range between ( 12 and 78 ) AST: 26 Units/Liter -- Normal range between ( 5 and 37 ) Globulin: 3.9 Gram/dL -- Normal range between ( 1.5 and 4.5 ) Alk Phos: 127 Units/Liter -- Normal range between ( 27 and 136 ) eAVG Glucose: 108 mg/dL Bun/Creatinine: 22.4 -- Normal range between ( 8.0 and 20.0 ) Calcium Level: 9.2 mg/dL -- Normal range between ( 8.5 and 10.1 ) eGFR : >60 mL/min/1.73m2 eGFR NonAfrican: >60 mL/min/1.73m2 Glucose Level: 91 mg/dL -- Normal range between ( 74 and 106 ) Blood Urea Nitrogen: 15 mg/dL -- Normal range between ( 7 and 22 ) Protein Total: 7.8 Gram/dL -- Normal range between ( 6.4 and 8.2 ) Albumin Level: 3.9 Gram/dL -- Normal range between ( 3.4 and 5.0 ) Coagulation 02/28/2019 9:26 AM INR: 1.0 -- Normal range between ( 0.9 and 1.1 ) PTT: 29.2 Second(s) -- Normal range between ( 24.5 and 30.1 ) PT: 9.8 Second(s) -- Normal range between ( 9.6 and 11.5 ) Lipid Studies 02/28/2019 9:26 AM Cholesterol Tot: 228 mg/dL -- Normal range between ( 0 and 199 ) Cholesterol HDL: 49.0 mg/dL Cholesterol LDL Calculation: 156.8 mg/dL -- Normal range between ( 0.0 and 99.0 ) Cholesterol VLDL Calculation: 22.2 mg/dL -- Normal range between ( 5.0 and 40.0 ) Cholesterol/HDL Ratio: 4.7 -- Normal range between ( 0.0 and 3.2 ) Triglyceride: 111 mg/dL -- Normal range between ( 0 and 249 ) LDL/HDL Ratio: 3.2 -- Normal range between ( 0.0 and 3.2 ) Endocrinology 02/28/2019 9:27 AM TSH: 2.180 mcInt Units/mL -- Normal range between ( 0.358 and 3.740 ) T4 Total: 12.7 mcg/mL -- Normal range between ( 4.8 and 13.9 ) Patient Name:NICHOLAS MELVIN I have received this information and was given the opportunity to ask questions. Patient/Data Analyst Etl Developer Name: Patient/Data Analyst Etl Developer Signature: Relationship to Patient: Clinician/Hospital Data Analyst Etl Developer Signature: Date: documented in this encounter Plan of Treatment Not on file documented as of this encounter Visit Diagnoses Not on filedocumented in this encounter
--- OUTSIDE RECORDS SUMMARY | 2025-01-30 13:55 | XMS_ITS | Encounter Summary ---
Author Organization [employer] ([place], [place], [place], [place]) Address [address] [place] [address] Care Team Providers Care Day Care Assistant Name Role Phone Unavailable Primary Care Provider Unavailabl e Encounter Details Date Type Department Care Team (Late st Contact Info) Description 04/08/2019 Transcribed Document [facility] [place] [address] [place] [address] ProviderNancy MD [address] [place] [address] Social History Tobacco Use Types [...] Conversion Note - Historical ProviderMD - 04/08/2019 2:00 AM NUDE MODEL Bellmaker Details Entered On: 04/08/2019 3:15 EST Performed On: 04/08/2019 2:00 EST by Bella Payan, Rural Sociologist-Nursing Order Details Transport Mode Order Detail : Wheelchair Isolation Precautions Order Detail : Standard Precautions Order Detail : 0 IV Order Detail : 1 Oxygen Order Detail : 1 Nurse Collect Order Detail : 0 Lift/Transfer : Minimal Central Line Order Detail : No Room Service : Not Appropriate Arterial Line : No Bella Payan, Rural Sociologist-Nursing - 04/08/2019 3:15 EST Electronically signed by Sadi Benoit Conversion Diesel Locomotive Crane Operator Cerner at 07/24/2022 7:35 PM CDT documented in this encounter Plan of Treatment Not on file documented as of this encounter Visit Diagnoses Not on filedocumented in this encounter
--- OUTSIDE RECORDS SUMMARY | 2025-01-30 13:55 | XMS_ITS | Encounter Summary ---
Author Organization [employer] ([place], [place], [place], [place]) Address [address] [place] [address] Care Team Providers Care Vacuum Spindle Sander Name Role Phone Unavailable Primary Care Provider Unavailabl e Encounter Details Date Type Department Care Team (Late st Contact Info) Description 04/08/2019 Transcribed Document [facility] [place] Family Medicine [address] [place] [address] ProviderNancy MD [address] [place] [address] Social History Tobacco Use Types [...] Conversion Note - Nancy ProviderMD - 04/08/2019 8:19 AM TAXI SERVICER Final Discharge Planning Entered On: 04/08/2019 8:24 EST Performed On: 04/08/2019 8:19 EST by SYBIL ATWOOD RN-Nurse Rn Bsn Final Discharge Planning Discharge Arrangements : Patient Post-Acute Information Patient Name: NICHOLAS BAIG Gender: Female : [birth year] Age: 38 Years No Post-Acute Placement(s) Listed No Post-Acute Service(s) Listed No [place] Referral(s) Listed Transportation Needs : Family/Friend Follow Up Appointment Scheduled : Yes Is Patient High/Moderate Readmission Risk? : No Patient/Family Notified of Plan : Yes Discharge To Care Management : Home/Residential/Shelter or Self Care -01 SYBIL ATWOOD RN-Nurse Rn Bsn - 04/08/2019 8:19 EST documented in this encounter Plan of Treatment Not on file documented as of this encounter Visit Diagnoses Not on filedocumented in this encounter
--- OUTSIDE RECORDS SUMMARY | 2025-01-30 13:55 | XMS_ITS | Encounter Summary ---
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 Living Situation : Home Patient Lives With : Dependent Child/Children, Spouse Emergency Contact #1 : [place] Emergency Contact #1 Emergency Contact #1 Relationship : spouse Emergency Contact #2 : . Emergency Contact #2 Phone Number : . Emergency Contact #2 Relationship : . Does Patient have PCP Listed? : No SYBIL ATWOOD RN-Patch Sander - 04/08/2019 8:18 EST Initial Assessment II Sensory and Motor Deficits : None Current Home Treatments and Equipment : None SYBIL ATWOOD RN-Patch Sander - 04/08/2019 8:18 EST Discharge Needs I Anticipated Discharge To, CM : Home with family care Current Home Treatment/Equipment : Current Home Treatment/Equipment No qualifying data available. Post Acute/Home Treatments : None Documentation Status Complete : Yes SYBIL ATWOOD RN-Patch Sander - 04/08/2019 8:18 EST Discharge Needs II Professional Skilled Services : Professional Skilled Services No qualifying data available. Needs Assistance with Transportation : No Discharge Options Discussed with Patient : Discharge transportation, Outpatient services SYBIL ATWOOD RN-Patch Sander - 04/08/2019 8:18 EST Narrative Note Narrative Note : Patient underwent laparoscopic gastrectomy sleeve with hiatal hernia repair. Patient lives at home with family and the plan is to return home at pr, no services needed..........sds SYBIL ATWOOD RN-Patch Sander - 04/08/2019 8:18 EST documented in this encounter Plan of Treatment Not on file documented as of this encounter Visit Diagnoses Not on filedocumented in this encounter
--- OUTSIDE RECORDS SUMMARY | 2025-01-30 13:55 | XMS_ITS | Encounter Summary ---
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
--- OUTSIDE RECORDS SUMMARY | 2025-01-30 13:55 | XMS_ITS | Encounter Summary ---
Author Organization [employer] ([place], [place], [place], [place]) Address [address] [place] [address] Care Team Providers Care Computer Technical Specialist Name Role Phone Unavailable Primary Care Provider Unavailabl e Encounter Details Date Type Department Care Team (Late st Contact Info) Description 02/28/2019 Transcribed Document [facility] [place] Family Medicine [address] [place] [address] ProviderNancy MD [address] [place] [address] Social History Tobacco Use Types [...] - Historical ProviderMD - 02/28/2019 12:54 PM [employer] [facility] PACU Summary Primary Physician: Finalized Date/Time: 02/28/19 13:34:06 Pt. Name: NICHOLAS BAIG /Sex: 1980 Female Med Rec #: [id number] Physician: BIJU KINNEY MD-[facility] Financial #: [id number] Pt. Type: O Room/Bed: [facility] Admit/Disch: 02/28/19 11:11:00 - Institution: [facility] PACU Case Times Entry 1 In PACU I 02/28/19 13:00:00 Ready for PACU 02/28/19 13:23:00 Discharge Discharge from PACU 02/28/19 13:34:00 I [facility] PACU Case Times Audit 02/28/19 13:34:05 Core Loader: SOPHIA Modifier: [email or web address] <+> 1 Discharge from PACU I 02/28/19 13:24:10 Core Loader: SOPHIA Modifier: [email or web address] <+> 1 Ready for PACU Discharge Finalized By: ATA TURCIOS RN Document Signatures Signed By: ATA TURCIOS RN 02/28/19 13:34 documented in this encounter Plan of Treatment Not on file documented as of this encounter Visit Diagnoses Not on filedocumented in this encounter
--- OUTSIDE RECORDS SUMMARY | 2025-01-30 13:55 | XMS_ITS | Encounter Summary ---
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 Name: JOVANNI NICHOLAS ALONDRA Flynn/Sex: 1980 Female Med Rec #: [id number] Physician: DURAN JIMENEZ MD-SUR Financial #: [id number] Pt. Type: I Room/Bed: 402/1 Admit/Disch: 04/07/19 04:54:00 - 04/08/19 15:28:00 Institution: [facility] PreOp Case Times Entry 1 In Preop 04/07/19 05:35:00 Ready for Holding n/a Room Patient Ready for 04/07/19 07:11:00 Surgery Patient Out of Preop 04/07/19 07:42:00 Patient Out of n/a Holding Room Last Modified By: DOROTHY TAPIA 04/15/19 08:21:49 SJMoris PreOp Case Times Audit 04/15/19 08:21:49 Experimental Box Tester: [email or web address] Modifier: [email or web address] <+> 1 Patient Out of Preop Finalized By: DOROTHY TAPIA Document Signatures Signed By: DOROTHY TAPIA 04/15/19 08:21 documented in this encounter Plan of Treatment Not on file documented as of this encounter Visit Diagnoses Not on filedocumented in this encounter
== END 2025-01-30 23:59 | disposition home or self-care (01) ==
LOC: RAD 13:51
PROVIDERS: PCP Family Medicine; Visit Provider Family Medicine
DX: Z12.31 Encounter for screening mammogram for malignant neoplasm of breast (principal); R92.333 Mammographic heterogeneous density, bilateral breasts
CPT/HCPCS: 77063; 77067